=== PATIENT | female | born 1950 | race Caucasian/White ===

== ENCOUNTER 2020-12-10 15:33 | Outpatient (REF) | payer MEDICARE, OTHER, SELFPAY | END 2020-12-10 15:34 | disposition home or self-care (01) | LOC: NCHCN 15:33 | PROVIDERS: Visit Provider Nurse Practitioner Family | DX: N39.0 Urinary tract infection, site not specified (principal) | CPT/HCPCS: 87086 ==

== ENCOUNTER 2021-08-16 01:40 | Outpatient (CLI) | payer MEDICARE, OTHER, SELFPAY ==
--- OUTSIDE RECORDS SUMMARY | 2021-08-16 01:44 | XMS_ITS ---
:1950 Author Care Team Providers Name Role Phone BURTON MENDES MD Administrator Pesticide [phone] CLAY JOSUE MD Primary Care Provider [phone] Allergies Code Code Name Reaction Severity Status Onset System 5487 RxNorm Hydrochlorothiazide ? ? Active ? Iodinated Contrast ? ? Active ? Media 36166 RxNorm Lisinopril Cough ? Active ? 10799 RxNorm Pravastatin Other ? Active ? Sulfa (Sulfonamide Other ? Active ? Antibiotics) Notes: 06/20/21 verbal review No seafood allergy. Contrast allergy. Medications Name Status Start Date Stop Date ? ? acetaminophen 500 mg tablet Completed 06/10/202006/05 Take 2 tablets every 6 hours by oral route as needed. amoxicillin 500 mg tablet Completed ? 2019 amoxicillin 875 mg tablet Completed 09/23/20162015 1 (one) Tablet: bid - twice daily aspirin 81 mg tablet,delayed release Completed 06/10/2020 07/03/2020 Take 1 tablet every day by oral route. atenolol 100 mg tablet Completed 09/16/2012 4 1 Tablet: daily atorvastatin 20 mg tablet Completed ? 2019 atorvastatin 40 mg tablet Active ? Not av ailable TAKE 1 TABLET BY MOUTH EVERY DAY Augmentin 875 mg-125 mg tablet Completed ? 0 06/25/2021 Take 1 tablet every 12 hours by oral route for 5 days. azithromycin 500 mg tablet Completed ? 01/17 betamethasone dipropionate Completed ? 06/10 0.05 % topical ointment betamethasone valerate 0.1 % topical cream Completed 10/3011/29/2015 1 (one) Cream Cream: abid cephalexin 500 mg capsule Completed ? 2020 cholecalciferol (vitamin D3) 125 mcg (5,000 unit) capsule Active ? Not available Take 1 capsule by mouth once a week ciprofloxacin 250 mg tablet Completed 12/04/2016 11/2016 1 (one) Tablet: two times daily clopidogrel 75 mg tablet Active ? Not jaycee ilable TAKE 1 TABLET BY MOUTH ONCE DAILY cyanocobalamin (vit B-12) Completed ? 2019 1,000 mcg/mL injection solution cyclobenzaprine 10 mg tablet Completed ? Take 1 tablet 3 times a day by oral route for 7 days. doxycycline hyclate 100 mg tablet Completed ? 06/25/2021 Take 1 tablet twice a day by oral route for 5 days. duloxetine 30 mg capsule,delayed release Active ? Not available TAKE 1 CAPSULE BY MOUTH ONCE DAILY Eliquis 5 mg tablet Completed ? 07/09/2020 ferrous sulfate 325 mg (65 mg iron) tablet Active ? Not available TAKE 1 TABLET BY MOUTH THREE TIMES DAILY fluocinonide 0.05 % topical cream Active ? Not available APPLY A THIN LAYER TOPICALLY TO THE AFFECT AREAS TWICE DAILY fluoxetine 20 mg capsule Completed ? 020 FreeStyle Lancets 28 gauge Completed ? 06/10 once daily FreeStyle Lite Strips Active ? Not availa ble USE 1 STRIP TO CHECK GLUCOSE ONCE DAILY furosemide 40 mg tablet Active ? Not avai lable TAKE 2 TABLETS BY MOUTH DAILY hydrocortisone valerate 0.2 % topical cream Active ? Not available APPLY A THIN LAYER TO THE AFFECTED AREA(S) BY TOPICAL ROUTE 2 T IMES PER DAY isosorbide mononitrate ER 30 mg tablet,extended release 24 hr Ac tive ? Not available TAKE 1 TABLET BY MOUTH TWICE DAILY (JASON E ONE TABLET BY MOUTH IN THE MORNING AND ONE TABLET BY MOUTH AT NOON) levothyroxine 50 mcg tablet Active ? Not available Take 1 tablet by mouth once daily lidocaine 4 % topical patch Active ? Not available Apply 1 patch every day by topical route for 10 days. losartan 100 mg tablet Completed ? 9 losartan 25 mg tablet Active ? Not availa ble TAKE 1 TABLET BY MOUTH ONCE DAILY Lovenox 80 mg/0.8 mL subcutaneous syringe Completed ? 06/12/2020 Inject 0.8 mL every 12 hours by subcutaneous route for 5 days. magnesium gluconate 12.5 mg magnesium (250 mg) tablet Completed 08/18/2016 12/02/2016 1 (one) Tablet: once daily meclizine 25 mg tablet Active ? Not avail able Take 1 tablet 3 times a day by oral route as needed. metformin 500 mg tablet Active ? Not avai lable Take 1 tablet by mouth twice daily metoprolol succinate ER 100 mg tablet,extended release 24 hr Act onofre ? Not available Take 1 tablet by mouth once daily Total dose metoprolol succinate: 175 mg QD metoprolol succinate ER 25 mg tablet,extended release 24 hr Acti ve ? Not available Take 1 tablet twice a day by oral route. take 1 tablet once daily for a total dose of 175 mg QD metoprolol succinate ER 50 mg tablet,extended release 24 hr Acti ve ? Not available Take 1 tablet every day by oral route. Total dose metoprolol succinate: Sheba t is to take 175 mg QAM, 50 mg and 25 mg QHS Mucinex 600 mg tablet, extended release Active ? Not available Take 1 tablet every 12 hours by oral route for 7 days. nitroglycerin 0.4 mg sublingual tablet Active 0 Not available 1 tablet as needed by sublingual route as directed. omeprazole 40 mg capsule,delayed release Completed ? 11/09/2020 TAKE 1 CAPSULE BY MOUTH ONCE DAILY Optimal D3 1,250 mcg (50,000 unit) capsule Completed ? 05/02/2019 TAKE 1 CAPSULE BY MOUTH ONCE A WEEK pantoprazole 40 mg tablet,delayed release Active ? Not available TAKE 1 TABLET BY MOUTH ONCE DAILY (TO REPLACE OMEPRAZOLE) prednisone 20 mg tablet Completed ? 01/18/20 19 prednisone 50 mg tablet Completed ? 06/10/20 20 Prilosec OTC 20 mg tablet,delayed release Completed ? 01/25/2020 Take 1 tablet every day by oral route in the morning. ProAir HFA 90 mcg/actuation aerosol inhaler Active ? Not available Inhale 2 puffs every 4 hours by inhalation route for 14 days. triamcinolone acetonide 0.5 % Completed ? topical cream Tylenol 325 mg capsule Active ? Not avail able Take 2 capsules every 6-8 hours by oral route as needed for 7 d ays. Vitamin B12 100 mcg tablet Active 06/10/2020 Not a vailable Take 1 tablet every day by oral route. Vitamin D2 1,250 mcg (50,000 unit) capsule Active 06/10 Not available Take 1 capsule every week by oral route. Vitamin D3 Completed ? 09/20/2018 5000 units weekly vitamin d3 (mimi) 125mcg cap Completed ? TAKE 1 CAPSULE BY MOUTH ONCE A WEEK. Vitamin D3 125 mcg (5,000 unit) tablet Completed ? 07/19/2019 Take 1 tablet every week by oral route. warfarin 1 mg tablet Completed ? 07/05/2020 Take 5 tablets every day by oral route for 30 days. Xarelto 20 mg tablet Active ? Not availab le Zithromax Z-Rusty 250 mg tablet Completed ? 2 (two) Tablet: on day one then 1 tablet daily for four more da ys Zofran 4 mg tablet Completed 09/04/2016 08/24/2017 1 (one) Tablet Tablet: every 6 hours as needed Notes: 06/25/21- reviewed with ronald lunsford Problems Name Status Onset Date Source ? Type 2 Diabetes Mellitus without Active 09/20/2018 ? Complication History of Aortic Valve Replacement Active 05/02/2019 ? Atherosclerosis of Coronary Artery Active 05/02/2019 ? without Angina Pectoris Gastroesophageal Reflux Disease Active 11/09/2020 ? without Esophagitis Polyp of Colon Active ? History Hypothyroidism Active ? 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 History Mellitus Biotin Deficiency Disease Active ? Histor y Severe Obesity Active ? History Depressive Disorder Active ? History Obstructive Sleep Apnea Syndrome Active ? History Idiopathic Peripheral Neuropathy Active ? History Hypertensive Disorder Active ? History Lymphedema Praecox Active ? History Peripheral Venous Insufficiency Active ? History Psoriasis Active ? History Displacement of Intervertebral Disc Active ? History without Myelopathy Heart Murmur Active ? History Full Thickness Rotator Cuff Tear Unknown ? History Strain of Muscle of Upper Limb Unknown ? H istory Strain of Tendon of Upper Arm Unknown ? Hi story History of Thrombophlebitis Unknown ? Hist ory History of Urinary Stone Unknown ? History History of Bariatric Surgical Active ? Hi story Procedure Finding of Esophagus Unknown ? History Strain of Muscle of Left Upper Arm Unknown ? History Strain of Muscle of Left Shoulder Unknown ? History Carpal Tunnel Syndrome of Left Wrist Unknown ? History Procedures Date Name Performed by ? 07/15/2019 Endoscopy Information not avai lable Notes: [facility] [place] 01/12/2019 Cardiac Catheterization Information not available 01/12/2019 Transcatheter Aortic Valve Information n ot available Replacement 11/01/2018 Cardiac Catheterization Information not available 10/05/1996 Gastric Bypass Information not avai lable 10/05/1995 Cholecystectomy Information not avai lable 10/05/1958 Tonsillectomy Information not avai lable 03/18/2018 US, Echocardiogram [facility] ([facility]) [address] [place] [address] (Work Place) 06/25/2018 Cardiac Stress Test [facility] Radiology (Internal) [address] [place] [address] (Work Place) 07/27/2018 US, Echocardiogram [facility] Radiology (Internal) [address] [place] [address] (Work Place) 09/22/2018 US, Echocardiogram [facility] Radiology (Internal) [address] [place] [address] (Work Place) 06/03/2019 Holter Monitor [facility] Cardio pulmonary [address] [place] [address] (Work Place) 03/02/2020 Event Monitor [facility] Cardio pulmonary [address] [place] [address] (Work Place) 06/25/2021 XR, Chest, 2 View [facility] Radiology (Internal) [address] [place] [address] (Work Place) 06/25/2021 US, Echocardiogram, Transthoracic, [facility] Radiology (Internal) Complete [address] [place] [address] (Work Place) 06/26/2021 Wireless Manager [facility] Radiology (Internal) [address] [place] [address] (Work Place) Results Lab Results Date Name Specimen Result Interpretation Description Value Range Status Address ? 06/24/2021 CBC W/ BLD ? Wbc 5.6 10*3/uL 5.0-10.0 Final [place] Auto Diff 10*3/uL [facility] L ab (Internal) : [address] ? ? BLD Low Rbc 3.79 10*6/uL 4.10-5.30 Final N orth 10*6/uL [facility] L ab (Internal) : [address] ? ? BLD Low Hgb 11.9 g/dL 12.0-16.0 Final Nort [facility] g/dL [facility] (Internal[facility] : [address] ? ? BLD Low Hct 34.8 % 37.0-47.0 Final [facility] Hospital L ab (Internal) : [address] ? ? BLD ? Mcv 91.8 fL 80.0-96.0 Final [facility] Hospital L ab (Internal) : [address] ? ? BLD ? Mch 31.4 pg 26.0-32.0 Final [facility] Hospital L ab (Internal) : [address] ? ? BLD ? Mchc 34.2 g/dL 31.0-35.0 Final Nort h g/dL [facility] L ab (Internal) : [address] ? ? BLD High Rdw 14.6 % 11.5-14.5 Final [facility] L ab (Internal) : [address] ? ? BLD ? Plt 216 10*3/uL 130-450 Final Nort h 10*3/uL [facility] L ab (Internal) : [address] ? ? BLD ? Anc 4.21 10*3/uL ? Final Nort h [facility] L ab (Internal) : [address] ? ? BLD High Nlr 5.40 0.00-3.20 Final [facility] L ab (Internal) : [address] ? ? BLD High Neutro 75.3 % 40.0-75.0 Final [facility] L ab (Internal) : [address] ? ? BLD Low Lymph 14.0 % 20.0-50.0 Final [facility] L ab (Internal) : [address] ? ? BLD ? [place] 5.6 % 2.0-10.0 Final [facility] L ab (Internal) : [address] ? ? BLD ? Eos 4.3 % 1.0-6.0 % Final [facility] L ab (Internal) : [address] ? ? BLD ? Baso 0.4 % 0.0-1.0 % Final [facility] L ab (Internal) : [address] [place] ? ? BLD ? Ig 0.4 % 0.0-0.9 % Final [facility] Hospital L ab (Internal) : [address] t 06/24/2021 D-dimer, PLASMA ? Dimq 0.31 mg/L 0.00-0.50 Final [place] Quant, mg/L [facility] L ab (Internal) : [address] t 06/24/2021 Troponin S ? Trop 15.02 pg/mL 0.00-60.4 Fin al [place] I, Serum 0 pg/mL [facility] Lab (Internal) : [address] 06/24/2021 BNP S High Nt-bnp 1044 pg/mL 0-125 Final N orth (B-type pg/mL [facility] (Internal) : Peptide), [address] Pro[address] , [place]ley [address] N-terminal , Quant, Immunoassa y, Blood 06/24/2021 Procalcito ? Pct <0.15 NG/mL 0.00-0.50 F inal [place] zofia, Serum NG/mL [facility] L ab (Internal) : [address] 06/24/2021 CMP, Serum S High g/r 178 mg/dL 74-106 Final [facility] or Plasma mg/dL [facility] L ab (Internal) : [address] t ? ? S High Bun 27 mg/dL 7-18 Final [place] mg/dL [facility] L ab (Internal) : [address] ? ? S High Crea 1.3 mg/dL 0.6-1.0 Final [place] mg/dL [facility] L ab (Internal) : [address] t ? ? S ? Ca 8.9 mg/dL 8.5-10.1 Final [place] mg/dL [facility] L ab (Internal) : [address] t ? ? S ? Na 141 mmol/L 136-145 Final [facility] mmol/L [facility] L ab (Internal) : [address] t ? ? S ? K 4.1 mmol/L 3.5-5.1 Final [place] mmol/L [facility] L ab (Internal) : [address] t ? ? S ? Cl 104 mmol/l 98-107 Final [facility] mmol/l [facility] L ab (Internal) : [address] t ? ? S ? Tco2 25.6 mmol/L 21.0-32.0 Final No rth mmol/L [facility] L ab (Internal) : [address] t ? ? S ? Tp 6.9 g/dL 6.4-8.2 Final [facility] g/dL [facility] L ab (Internal) : [address] ? ? S ? Alb 3.7 g/dL 3.4-5.0 Final [facility] g/dL [facility] L ab (Internal) : [address] ? ? S ? Tbil 0.50 mg/dL 0.20-1.00 Final Nor th mg/dL [facility] L ab (Internal) : [address] t ? ? S ? Alp 64 U/L 46-116 Final [facility] U/L [facility] L ab (Internal) : [address] ? ? S ? Alt 20 U/L 14-59 U/L Final [facility] (Sgpt) [facility] L ab (Internal) : [address] ? ? S Low Ast 14 U/L 15-37 U/L Final [facility] (Sgot) [facility] L ab (Internal) : [address] 06/24/2021 TSH, Serum S ? Tsh 3.35 uIU/mL 0.36-3.74 F inal North or Plasma uIU/mL [facility] L ab (Internal) : [address] 06/13/2021 SARS CoV 2 SWAB ? Covid-19 negative negative Fi nal [place] RNA RT-PCR Country (COVID-19) [facility] Lab , QL, Result (Internal) : machine inspector-PCR, [address] y Specimen ? ? SWAB ? Performi ginny 6800 ? Final [facility] L ab (Internal) : [address] 06/04/2021 HbA1C BLD High Ha1C 6.8 % 4.0-6.0 % Final Nor th (Hemoglobi Countr y n a1C), Hospital Lab Blood (Internal) : [address] 06/04/2021 CMP, Serum S High g/r 181 mg/dL 74-106 Final North or Plasma mg/dL [facility] (Internal) : [address] ? ? S High Bun 29 mg/dL 7-17 Final [facility] mg/dL [facility] (Internal) : [address] ? ? S ? Crea 0.80 mg/dL 0.52-1.04 Final Nor th mg/dL [facility] (Internal) : [address] ? ? S ? Ca 9.2 mg/dL 8.4-10.2 Final [facility] mg/dL [facility] (Internal) : [address] ? ? S ? Na 138 mmol/L 137-145 Final [facility] mmol/L [facility] (Internal) : [address] ? ? S ? K 4.4 mmol/L 3.5-5.1 Final [facility] mmol/L [facility] (Internal) : [address] ? ? S ? Cl 100 mmol/L 98-107 Final [facility] mmol/L [facility] (Internal) : [address] ? ? S ? Tco2 30.0 mmol/L 22.0-30.0 Final No rth mmol/L [facility] (Internal) : [address] ? ? S ? Tp 6.6 g/dL 6.3-8.2 Final [facility] g/dL [facility] (Internal) : [address] ? ? S ? Alb 3.9 g/dL 3.5-5.0 Final [facility] g/dL [facility] (Internal) : [address] ? ? S ? Tbil 1.0 mg/dL 0.2-1.3 Final [facility] mg/dL [facility] (Internal) : [address] ? ? S ? Alp 55 U/L 38-126 Final [facility] U/L [facility] (Internal) : [address] ? ? S ? Alt 13 U/L 9-52 U/L Final [facility] (Sgpt) [facility] : [address] [facility] ? ? S ? Ast 23 U/L 14-36 U/L Final [facility] (Sgot) [facility] (Internal) : [address] [facility] 06/04/2021 TSH, Serum S ? Tsh 2.83 u[IU]/mL 0.47-4.68 Final [facility] or Plasma u[IU]/mL [facility] ry Hospital L ab (Internal) : [address] [facility] 06/04/2021 Vitamin D, S ? 25-Shirley 6.1 NG/mL ? Fin [place] [facility] 25-Hydroxy xy D2 Countr y , Total, Hospital Lab [facility] [address] [facility] ? ? S ? 25-Shirley 26 NG/mL ? Final [facility] xy D3 [facility] (Internal) : [address] ? ? S ? 25-Shirley 32 NG/mL ? Final [facility] xy D [facility] Total Hospital L ab (Internal) : [address] [facility] 03/16/2021 EKG Done ? No ? ? ? [facility] recorded. ([employer] Installer al): [address] [facility] 03/16/2021 Troponin S ? Trop <0.06 NG/mL 0.00-0.06 Reggie mead [facility] I, Serum NG/mL [facility]osp[facility] Lab (Internal) : [address] [facility] 01/04/2021 HbA1C BLD High Ha1C 7.0 % 4.0-6.0 % Final [facility] (Hemoglobi Countr y n a1C), Hospital Lab Blood (Internal) : [address] [facility] 01/04/2021 TSH, Serum S ? Tsh 2.03 u[IU]/mL 0.47-4.68 Final [place] or Plasma u[IU]/mL Count ry Hospital L ab (Internal) : [address] [facility] 07/03/2020 EKG Done ? No ? ? ? Nort [facility] recorded. ([employer] Installer al): [address] [facility] 06/29/2020 Lipid S ? Chol 117 mg/dL 50-200 Final Nor th Panel, mg/dL [facility] Serum Hospital L ab (Internal) : [address] ? ? S High Trig 172 mg/dL 10-150 Final North mg/dL [facility] L ab (Internal) : [address] ? ? S Low Hdl 37 mg/dL 40-60 Final North mg/dL [facility] L ab (Internal) : [address] ? ? S ? Ldl 46 mg/dL 0-130 Final North mg/dL [facility] L ab (Internal) : [address] 06/29/2020 Hepatic S ? Tbil 0.8 mg/dL 0.2-1.3 Final N orth Function mg/dL [facility] Panel, Hospital L ab Serum (Internal) : [address] ? ? S ? Dbil 0.1 mg/dL 0.0-0.3 Final North mg/dL [facility] L ab (Internal) : [address] t ? ? S ? Alp 56 U/L 38-126 Final [place] U/L [facility] L ab (Internal) : [address] ? ? S ? Alt 17 U/L 9-52 U/L Final [facility] (Sgpt) [facility] L ab (Internal) : [address] ? ? S ? Ast 21 U/L 14-36 U/L Final [facility] (Sgot) [facility] L ab (Internal) : [address] ? ? S ? Ggt 18 U/L 12-43 U/L Final [facility] L ab (Internal) : [address] ? ? S ? Tp 6.3 g/dL 6.3-8.2 Final North g/dL [facility] L ab (Internal) : [address] ? ? S ? Alb 3.7 g/dL 3.5-5.0 Final [place] g/dL [facility] L ab (Internal) : [address] 06/10/2020 CBC W/ BLD ? Wbc 5.2 10*3/uL 5.0-10.0 Final [place] Auto Diff 10*3/uL [facility] (Internal) : [address], [place] ? ? BLD Low Rbc 3.91 10*6/uL 4.10-5.30 Final N orth 10*6/uL [facility] L ab (Internal) : [address] ? ? BLD ? Hgb 12.1 g/dL 12.0-16.0 Final Nort h g/dL [facility] L ab (Internal) : [address] ? ? BLD Low Hct 35.5 % 37.0-47.0 Final [facility] Hospital L ab (Internal) : [address] [place] ? ? BLD ? Mcv 90.8 fL 80.0-96.0 Final [facility] Hospital L ab (Internal) : [address] ? ? BLD ? Mch 30.9 pg 26.0-32.0 Final [facility] Hospital L ab (Internal) : [address] ? ? BLD ? Mchc 34.1 g/dL 31.0-35.0 Final Nort h g/dL [facility] L ab (Internal) : [address] [place] ? ? BLD ? Rdw 13.4 % 11.5-14.5 Final [facility] L ab (Internal) : [address] ? ? BLD ? Plt 190 10*3/uL 130-450 Final Nort h 10*3/uL [facility] L ab (Internal) : [address] ? ? BLD ? Anc 3.61 10*3/uL ? Final Nort h [facility] L ab (Internal) : [address] ? ? BLD High Nlr 3.80 0.00-3.20 Final [facility] L ab (Internal) : [address] ? ? BLD ? Neutro 69.9 % 40.0-75.0 Final [facility] L ab (Internal) : [address] ? ? BLD Low Lymph 18.4 % 20.0-50.0 Final [facility] L ab (Internal) : [address] ? ? BLD ? [place] 6.4 % 2.0-10.0 Final [facility] L ab (Internal) : [address] ? ? BLD ? Eos 4.3 % 1.0-6.0 % Final [facility] Hospital L ab (Internal) : [address] ? ? BLD ? Baso 0.6 % 0.0-1.0 % Final [facility] Hospital L ab (Internal) : [address] ? ? BLD ? Ig 0.4 % 0.0-0.9 % Final [facility] Hospital L ab (Internal) : [address] 06/10/2020 BMP, Serum S High g/r 177 mg/dL 74-106 Final [facility] or Plasma mg/dL [facility] (Internal) : [address] ? ? S High Bun 29 mg/dL 7-17 Final North mg/dL [facility] L ab (Internal) : [address] t ? ? S ? Crea 0.70 mg/dL 0.52-1.04 Final Nor th mg/dL [facility] L ab (Internal) : [address] t ? ? S ? Ca 9.3 mg/dL 8.4-10.2 Final [facility] mg/dL [facility] (Internal) : [address] t ? ? S ? Na 137 mmol/L 137-145 Final North mmol/L [facility] L ab (Internal) : [address] t ? ? S ? K 3.9 mmol/L 3.5-5.1 Final North mmol/L [facility] L ab (Internal) : [address] t ? ? S ? Cl 99 mmol/L 98-107 Final [facility] mmol/L [facility] L ab (Internal) : [address] t ? ? S ? Tco2 29.0 mmol/L 22.0-30.0 Final No rth mmol/L [facility] (Internal) : [address] 06/10/2020 Troponin S High Trop 0.10 NG/mL 0.00-0.06 Sarah l [place] I, Serum NG/mL [facility] or [facility]osp[facility] Lab (Internal) : [address] 06/09/2020 CBC W/ BLD Low Wbc 3.7 10*3/uL 5.0-10.0 Final [place] Auto Diff 10*3/uL [facility] L ab (Internal) : [address] ? ? BLD Low Rbc 3.43 10*6/uL 4.10-5.30 Final N orth 10*6/uL [facility] L ab (Internal) : [address] ? ? BLD Low Hgb 10.9 g/dL 12.0-16.0 Final Nort h g/dL [facility] L ab (Internal) : [address] ? ? BLD Low Hct 31.9 % 37.0-47.0 Final [facility] Hospital L ab (Internal) : [address] ? ? BLD ? Mcv 93.0 fL 80.0-96.0 Final [facility] Hospital L ab (Internal) : [address] ? ? BLD ? Mch 31.8 pg 26.0-32.0 Final [facility] Hospital L ab (Internal) : [address] ? ? BLD ? Mchc 34.2 g/dL 31.0-35.0 Final Nort h g/dL [facility] L ab (Internal) : [address] ? ? BLD ? Rdw 13.5 % 11.5-14.5 Final [facility] L ab (Internal) : [address] ? ? BLD Low Plt 127 10*3/uL 130-450 Final Nort h 10*3/uL [facility] L ab (Internal) : [address] ? ? BLD ? Anc 2.20 10*3/uL ? Final Nort h [facility] L ab (Internal) : [address] ? ? BLD ? Nlr 2.27 0.00-3.20 Final [facility] Hospital L ab (Internal) : [address] ? ? BLD ? Neutro 60.1 % 40.0-75.0 Final [facility] L ab (Internal) : [address] ? ? BLD ? Lymph 26.5 % 20.0-50.0 Final [facility] L ab (Internal) : [address] ? ? BLD ? [place] 8.2 % 2.0-10.0 Final North % [facility] L ab (Internal) : [address] ? ? BLD ? Eos 4.4 % 1.0-6.0 % Final [facility] Hospital L ab (Internal) : [address] ? ? BLD ? Baso 0.5 % 0.0-1.0 % Final [facility] Hospital L ab (Internal) : [address] ? ? BLD ? Ig 0.3 % 0.0-0.9 % Final [facility] L ab (Internal) : [address] 06/09/2020 BMP, Serum S High g/r 156 mg/dL 74-106 Final [facility] or Plasma mg/dL [facility] ([facility] : [address] t ? ? S High Bun 34 mg/dL 7-17 Final North mg/dL [facility] L ab (Internal) : [address] t ? ? S ? Crea 0.90 mg/dL 0.52-1.04 Final [facility] mg/dL [facility] L [facility] (Internal) : [address] t ? ? S ? Ca 9.4 mg/dL 8.4-10.2 Final [facility] mg/dL [facility] L [facility] (Internal) : [address] t ? ? S ? Na 137 mmol/L 137-145 Final North mmol/L [facility] L [facility] (Internal) : [address] t ? ? S ? K 4.0 mmol/L 3.5-5.1 Final North mmol/L [facility] L ab (Internal) : [address] t ? ? S ? Cl 101 mmol/L 98-107 Final North mmol/L [facility] L ab (Internal) : [address] t ? ? S ? Tco2 30.0 mmol/L 22.0-30.0 Final No rth mmol/L [facility] L [facility] (Internal) : [address] 06/09/2020 Troponin S High Trop 0.26 NG/mL 0.00-0.06 Sarah l [place] I, Serum NG/mL [facility] Lab (Internal) : [address] 06/08/2020 CBC W/ BLD ? Wbc 5.9 10*3/uL 5.0-10.0 Final [place] Auto Diff 10*3/uL [facility] L ab (Internal) : [address] t ? ? BLD Low Rbc 3.95 10*6/uL 4.10-5.30 Final N orth 10*6/uL [facility] L ab (Internal) : [address] t ? ? BLD ? Hgb 12.3 g/dL 12.0-16.0 Final Nort h g/dL [facility] L ab (Internal) : [address] t ? ? BLD Low Hct 36.2 % 37.0-47.0 Final [facility] L ab (Internal) : [address] t ? ? BLD ? Mcv 91.6 fL 80.0-96.0 Final [facility] Hospital L ab (Internal) : [address] t ? ? BLD ? Mch 31.1 pg 26.0-32.0 Final [facility] L ab (Internal) : [address] t ? ? BLD ? Mchc 34.0 g/dL 31.0-35.0 Final Nort h g/dL [facility] L ab (Internal) : [address] t ? ? BLD ? Rdw 13.5 % 11.5-14.5 Final [facility] L ab (Internal) : [address] t ? ? BLD ? Plt 209 10*3/uL 130-450 Final Nort h 10*3/uL [facility] L ab (Internal) : [address] t ? ? BLD ? Anc 4.00 10*3/uL ? Final Nort h [facility] L ab (Internal) : [address] t ? ? BLD ? Nlr 3.01 0.00-3.20 Final [facility] L ab (Internal) : [address] t ? ? BLD ? Neutro 67.7 % 40.0-75.0 Final [facility] L ab (Internal) : [address] t ? ? BLD ? Lymph 22.5 % 20.0-50.0 Final [facility] ([facility] : [address] t ? ? BLD ? [place] 5.7 % 2.0-10.0 Final [facility] (Internal) : [address] t ? ? BLD ? Eos 3.5 % 1.0-6.0 % Final [facility] L ab (Internal) : [address] t ? ? BLD ? Baso 0.3 % 0.0-1.0 % Final [facility] L ab (Internal) : [address] t ? ? BLD ? Ig 0.3 % 0.0-0.9 % Final [facility] L ab (Internal) : [address] 06/08/2020 CMP, Serum S High g/r 132 mg/dL 74-106 Final [facility] or Plasma mg/dL [facility] (Internal) : [address] t ? ? S High Bun 32 mg/dL 7-17 Final [facility] mg/dL [facility] (Internal) : [address] t ? ? S ? Crea 1.00 mg/dL 0.52-1.04 Final [facility] mg/dL [facility] (Internal) : [address] t ? ? S ? Ca 9.8 mg/dL 8.4-10.2 Final [facility] mg/dL [facility] (Internal) : [address] t ? ? S ? Na 138 mmol/L 137-145 Final North mmol/L [facility] L ab (Internal) : [address] t ? ? S ? K 3.9 mmol/L 3.5-5.1 Final [facility] mmol/L [facility] (Internal) : [address] t ? ? S ? Cl 102 mmol/L 98-107 Final North mmol/L [facility] L ab (Internal) : [address] t ? ? S ? Tco2 26.0 mmol/L 22.0-30.0 Final No rth mmol/L [facility] (Internal) : [address] t ? ? S ? Tp 6.8 g/dL 6.3-8.2 Final [place] g/dL [facility] L ab (Internal) : [address] t ? ? S ? Alb 3.9 g/dL 3.5-5.0 Final [place] g/dL [facility] L ab (Internal) : [address] t ? ? S ? Tbil 0.8 mg/dL 0.2-1.3 Final [place] mg/dL [facility] L ab (Internal) : [address] t ? ? S ? Alp 55 U/L 38-126 Final [facility] U/L [facility] L ab (Internal) : [address] t ? ? S ? Alt 16 U/L 9-52 U/L Final [place] (Sgpt) [facility] L ab (Internal) : [address] t ? ? S ? Ast 26 U/L 14-36 U/L Final [facility] (Sgot) [facility] L ab (Internal) : [address] [facility] t 06/08/2020 Troponin S High Trop 0.23 NG/mL 0.00-0.06 Sarah l [place] I, Serum NG/mL [facility] or Plasma Hospita l Lab (Internal) : [address] [facility] t 06/08/2020 BNP S High Nt-probn 3940 pg/mL 0-125 Final [place] (B-type p pg/mL [facility] (Internal) : Peptide), [address] Prohormone , Marley wport N-terminal , Quant, Immunoassa y, Blood 06/08/2020 TSH, Serum S ? Tsh 1.80 u[IU]/mL 0.47-4.68 Final [place] or Plasma u[IU]/mL [facility] (Internal) : [address] [facility] Troponin S CRITICA Trop 0.42 NG/mL 0.00-0.06 Fin al North I, Serum L HIGH NG/mL [facility] Lab (Internal) : [address] t 04/25/2020 EKG Done ? No ? ? ? Nort h by Lab observati [facility] on Hospital L ab recorded. ([employer] al): [address] t 03/05/2020 EKG Done ? No ? ? ? [facility] ([employer] al): [address] 01/27/2020 CBC W/ BLD Low Wbc 4.6 10*3/uL 5.0-10.0 Final [place] Auto Diff 10*3/uL [facility] L ab (Internal) : [address] t ? ? BLD ? Rbc 4.56 10*6/uL 4.10-5.30 Final N orth 10*6/uL [facility] L ab (Internal) : [address] t ? ? BLD ? Hgb 13.4 g/dL 12.0-16.0 Final Nort h g/dL [facility] L ab (Internal) : [address] t ? ? BLD ? Hct 39.8 % 37.0-47.0 Final [facility] Hospital L ab (Internal) : [address] t ? ? BLD ? Mcv 87.3 fL 80.0-96.0 Final [facility] Hospital L ab (Internal) : [address] t ? ? BLD ? Mch 29.4 pg 26.0-32.0 Final [facility] Hospital L ab (Internal) : [address] t ? ? BLD ? Mchc 33.7 g/dL 31.0-35.0 Final Nort h g/dL [facility] L ab (Internal) : [address] ? ? BLD High Rdw 15.6 % 11.5-14.5 Final [facility] Hospital L ab (Internal) : [address] t ? ? BLD ? Plt 186 10*3/uL 130-450 Final Nort h 10*3/uL [facility] L ab (Internal) : [address] t ? ? BLD ? Anc 3.25 10*3/uL ? Final Nort h [facility] L ab (Internal) : [address] t ? ? BLD High Nlr 3.57 0.00-3.20 Final [facility] L ab (Internal) : [address] t ? ? BLD ? Neutro 70.2 % 40.0-75.0 Final [facility] (Internal) : [address] ? ? BLD Low Lymph 19.7 % 20.0-50.0 Final [facility] (Internal) : [address] ? ? BLD ? [place] 6.5 % 2.0-10.0 Final [facility] (Internal) : [address] t ? ? BLD ? Eos 3.0 % 1.0-6.0 % Final [facility] L ab (Internal) : [address] t ? ? BLD ? Baso 0.4 % 0.0-1.0 % Final [facility] L ab (Internal) : [address] t ? ? BLD ? Ig 0.2 % 0.0-0.9 % Final [facility] L ab (Internal) : [address] t 01/27/2020 CMP, Serum S High g/r 171 mg/dL 74-106 Final [place] or Plasma mg/dL [facility] (Internal) : [address] t ? ? S High Bun 18 mg/dL 7-17 Final [facility] mg/dL [facility] (Internal) : [address] t ? ? S ? Crea 0.60 mg/dL 0.52-1.04 Final [facility] th mg/dL [facility] (Internal) : [address] t ? ? S ? Ca 9.2 mg/dL 8.4-10.2 Final [facility] mg/dL [facility] (Internal) : [address] t ? ? S ? Na 140 mmol/L 137-145 Final [facility] mmol/L [facility] (Internal) : [address] t ? ? S ? K 4.2 mmol/L 3.5-5.1 Final [facility] mmol/L [facility] (Internal) : [address] t ? ? S ? Cl 101 mmol/L 98-107 Final [facility] mmol/L [facility] (Internal) : [address] t ? ? S ? Tco2 27.0 mmol/L 22.0-30.0 Final No rth mmol/L [facility] L ab (Internal) : [address] t ? ? S ? Tp 6.9 g/dL 6.3-8.2 Final North g/dL [facility] L ab (Internal) : [address] t ? ? S ? Alb 4.1 g/dL 3.5-5.0 Final [place] g/dL [facility] L ab (Internal) : [address] t ? ? S ? Tbil 0.9 mg/dL 0.2-1.3 Final [place] mg/dL [facility] L ab (Internal) : [address] t ? ? S ? Alp 58 U/L 38-126 Final [facility] U/L [facility] L ab (Internal) : [address] t ? ? S ? Alt 15 U/L 9-52 U/L Final [facility] (Sgpt) [facility] L ab (Internal) : [address] t ? ? S ? Ast 25 U/L 14-36 U/L Final [place] (Sgot) [facility] L ab (Internal) : [address] [facility] 01/27/2020 Microalbum UR High Malb 76.3 mg/L 5.0-16.7 Sarah l [place] in, Urine mg/L [facility] L ab (Internal) : [address] t ? ? UR High U-crea, 264 mg/dL 30-125 Final North Spot mg/dL [facility] L ab (Internal) : [address] t ? ? UR ? Microalb 28.9 ug/mg 0.0-30.0 Final N orth /crea ug/mg [facility] L ab (Internal) : [address] [facility] 01/27/2020 TSH, Serum S ? Tsh 1.92 u[IU]/mL 0.47-4.68 Final [place] or Plasma u[IU]/mL [facility] L ab (Internal) : [address] [facility] 01/27/2020 RBC BLD ? Aniso small ? Final [facility] Morphology Countr y , Blood Hospital Lab (Internal) : [address] [facility] 01/27/2020 HbA1C BLD High Ha1C 6.9 % 4.0-6.0 % Final Nor th (Hemoglobi Countr y n a1C), Hospital Lab Blood (Internal) : [address] 10/01/2019 CBC W/ BLD Low Wbc 4.6 10*3/uL 5.0-10.0 Final [place] Auto Diff 10*3/uL [facility] L [facility] (Internal) : [address] ? ? BLD - Rbc 4.68 10*6/uL 4.10-5.30 Final N orth 10*6/uL [facility] L ab (Internal) : [address] ? ? BLD - Hgb 12.2 g/dL 12.0-16.0 Final Nort h g/dL [facility] L ab (Internal) : [address] ? ? BLD - Hct 38.7 % 37.0-47.0 Final [facility] L ab (Internal) : [address] ? ? BLD - Mcv 82.7 fL 80.0-96.0 Final [facility] L ab (Internal) : [address] ? ? BLD - Mch 26.1 pg 26.0-32.0 Final [facility] L ab (Internal) : [address] ? ? BLD - Mchc 31.5 g/dL 31.0-35.0 Final Nort h g/dL [facility] L ab (Internal) : [address] ? ? BLD High Rdw 14.9 % 11.5-14.5 Final [facility] Hospital L ab (Internal) : [address] ? ? BLD - Plt 210 10*3/uL 130-450 Final Nort h 10*3/uL [facility] L ab (Internal) : [address] ? ? BLD - Anc 3.24 10*3/uL ? Final Nort h [facility] L ab (Internal) : [address] ? ? BLD - Neutro 70.6 % 40.0-75.0 Final [facility] L ab (Internal) : [address] ? ? BLD Low Lymph 18.5 % 20.0-50.0 Final [facility] (Internal) : [address] ? ? BLD - [place] 6.1 % 2.0-10.0 Final [facility] (Internal) : [address] ? ? BLD - Eos 4.4 % 1.0-6.0 % Final [facility] L ab (Internal) : [address] ? ? BLD - Baso 0.4 % 0.0-1.0 % Final [facility] L ab (Internal) : [address] ? ? BLD - Ig 0.0 % 0.0-0.9 % Final [facility] L ab (Internal) : [address] t 10/01/2019 HbA1C BLD High Ha1C 7.7 % 4.0-6.0 % Final [facility] th (Hemoglobi Countr y n a1C), Hospital Lab Blood (Internal) : [address] 10/01/2019 Lipid S - Chol 154 mg/dL 50-200 Final [facility] th Panel, mg/dL [facility] L ab (Internal) : [address] ? ? S High Trig 173 mg/dL 10-150 Final [facility] mg/dL [facility] (Internal) : [address] ? ? S Low Hdl 33 mg/dL 40-60 Final [facility] mg/dL [facility] (Internal) : [address] ? ? S - Ldl 86 mg/dL 0-130 Final North mg/dL [facility] L ab (Internal) : [address] 10/01/2019 CMP, Serum S High g/r 185 mg/dL 74-106 Final [place] or Plasma mg/dL [facility] (Internal) : [address] ? ? S High Bun 19 mg/dL 7-17 Final North mg/dL [facility] L ab (Internal) : [address] ? ? S - Crea 0.70 mg/dL 0.52-1.04 Final [facility] mg/dL [facility] L [facility] (Internal) : [address] t ? ? S - Ca 9.5 mg/dL 8.4-10.2 Final [facility] mg/dL [facility] (Internal) : [address] t ? ? S - Na 141 mmol/L 137-145 Final [facility] mmol/L [facility] (Internal) : [address] t ? ? S - K 4.0 mmol/L 3.5-5.1 Final [facility] mmol/L [facility] (Internal) : [address] t ? ? S - Cl 99 mmol/L 98-107 Final [facility] mmol/L [facility] (Internal) : [address] t ? ? S - Tco2 29.0 mmol/L 22.0-30.0 Final No rth mmol/L [facility] L [facility] (Internal) : [address] t ? ? S - Tp 7.3 g/dL 6.3-8.2 Final [facility] g/dL [facility] (Internal) : [address] t ? ? S - Alb 4.0 g/dL 3.5-5.0 Final [facility] g/dL [facility] (Internal) : [address] t ? ? S - Tbil 0.8 mg/dL 0.2-1.3 Final [facility] mg/dL [facility] L [facility] (Internal) : [address] t ? ? S - Alp 83 U/L 38-126 Final [facility] U/L [facility] (Internal) : [address] ? ? S - Alt 13 U/L 9-52 U/L Final [facility] (Sgpt) [facility] L [facility] (Internal) : [address] t ? ? S - Ast 26 U/L 14-36 U/L Final [facility] (Sgot) [facility] L [facility] (Internal) : [address] 10/01/2019 Microalbum UR - Malb <7.0 mg/L 5.0-16.7 Sarah l [place] in, Urine mg/L [facility] L [facility] (Internal) : [address] ? ? UR - U-crea, 43 mg/dL 30-125 Final [place] Spot mg/dL [facility] L [facility] (Internal) : [address] 10/01/2019 Iron S - Iron 68 ug/dL 37-170 Final Nort h Saturation ug/dL Countr y , Serum Hospital Lab (Internal) : [address] ? ? S - Tibc 421 ug/dL 265-497 Final [place] ug/dL [facility] L ab (Internal) : [address] ? ? S Low Sat 16 % 20-55 % Final [facility] L ab (Internal) : [address] 10/01/2019 Ferritin, S Low Ferr 9 NG/mL 11-264 Final No rth Serum or NG/mL [facility] L ab (Internal) : [address] 10/01/2019 Vitamin S High Vit B12 >1000.0 pg/mL 239.0-931 Final [place] B12, Serum .0 pg/mL [facility] L ab (Internal) : [address] 10/01/2019 TSH, Serum S - Tsh 1.55 u[IU]/mL 0.47-4.68 Final [place] or Plasma u[IU]/mL [facility] L ab (Internal) : [address] 09/20/2018 CBC W/ BLD Low Wbc 4.1 10*3/uL 5.0-10.0 Final [place] Auto Diff 10*3/uL [facility] L ab (Internal) : [address] ? ? BLD Low Rbc 3.77 10*6/uL 4.10-5.30 Final N orth 10*6/uL [facility] L ab (Internal) : [address] ? ? BLD Low Hgb 10.9 g/dL 12.0-16.0 Final Nort h g/dL [facility] L ab (Internal) : [address] ? ? BLD Low Hct 33.2 % 37.0-47.0 Final [facility] L ab (Internal) : [address] ? ? BLD - Mcv 88.1 fL 80.0-96.0 Final [facility] L ab (Internal) : [address] ? ? BLD - Mch 28.9 pg 26.0-32.0 Final [facility] L ab (Internal) : [address] ? ? BLD - Mchc 32.8 g/dL 31.0-35.[address] [facility] h g/dL [facility] L ab (Internal) : [address] ? ? BLD - Rdw 14.5 % 11.5-14.5 Final [facility] L ab (Internal) : [address] ? ? BLD - Plt 170 10*3/uL 130-450 Final Nort h 10*3/uL [facility] L ab (Internal) : [address] ? ? BLD - Anc 2.42 10*3/uL ? Final [facility] L ab (Internal) : [address] ? ? BLD - Neutro 58.8 % 40.0-75.0 Final [facility] L ab (Internal) : [address] t ? ? BLD - Lymph 25.7 % 20.0-50.0 Final [facility] L ab (Internal) : [address] ? ? BLD - [place] 7.8 % 2.0-10.0 Final [facility] L ab (Internal) : [address] ? ? BLD High Eos 7.0 % 1.0-6.0 % Final [facility] L ab (Internal) : [address] t ? ? BLD - Baso 0.5 % 0.0-1.0 % Final [facility] L ab (Internal) : [address] ? ? BLD - Ig 0.2 % 0.0-0.9 % Final [facility] L ab (Internal) : [address] t 09/20/2018 HbA1C BLD High Ha1C 6.7 % 4.0-6.0 % Final [facility] th (Hemoglobi Countr y n a1C), Hospital Lab Blood (Internal) : [address] t 09/20/2018 CMP, Serum S High g/r 117 mg/dL 74-106 Final [place] or Plasma mg/dL [facility] L ab (Internal) : [address] t ? ? S High Bun 22 mg/dL 7-17 Final [facility] mg/dL [facility] (Internal) : [address] ? ? S High Crea 1.10 mg/dL 0.52-1.04 Final [facility] th mg/dL [facility] L [facility] (Internal) : [address] t ? ? S - Ca 9.4 mg/dL 8.4-10.2 Final [facility] mg/dL [facility] L [facility] (Internal) : [address] t ? ? S - Na 140 mmol/L 137-145 Final [facility] mmol/L [facility] (Internal) : [address] t ? ? S - K 4.2 mmol/L 3.5-5.1 Final [facility] mmol/L [facility] L [facility] (Internal) : [address] t ? ? S - Cl 101 mmol/L 98-107 Final [facility] mmol/L [facility] L [facility] (Internal) : [address] t ? ? S - Tco2 29.0 mmol/L 22.0-30.0 Final No rth mmol/L [facility] L ab (Internal) : [address] t ? ? S - Tp 6.6 g/dL 6.3-8.2 Final [facility] g/dL [facility] L [facility] (Internal) : [address] t ? ? S - Alb 3.7 g/dL 3.5-5.0 Final [facility] g/dL [facility] L [facility] (Internal) : [address] t ? ? S - Tbil 0.4 mg/dL 0.2-1.3 Final [facility] mg/dL [facility] L [facility] (Internal) : [address] t ? ? S - Alp 49 U/L 38-126 Final [facility] U/L [facility] L [facility] (Internal) : [address] t ? ? S - Alt 13 U/L 9-52 U/L Final North (Sgpt) [facility] L ab (Internal) : [address] t ? ? S - Ast 24 U/L 14-36 U/L Final [facility] (Sgot) [facility] L ab (Internal) : [address] 09/20/2018 Thyroid S - Tsh 2.08 u[IU]/mL 0.47-4.68 Fi [facility] [place], u[IU]/mL Countr y Serum Hospital L ab (Internal) : [address] 01/25/2018 Venipunctu BLD ? Venpn* ? ? Final N orth re [facility] L ab (Internal) : [address] 01/25/2018 Vitamin S ? Vit B12 823.0 pg/mL 239.0-931 Fi [facility] B12, Serum .0 pg/mL Coun try Hospital L ab (Internal) : [address] 01/25/2018 CBC W/ BLD Low Wbc 4.6 10*3/uL 5.0-10.0 Final [place] Auto Diff 10*3/uL [facility] L ab (Internal) : [address] t ? ? BLD Low Rbc 3.89 10*6/uL 4.10-5.30 Final N orth 10*6/uL [facility] L ab (Internal) : [address] t ? ? BLD Low Hgb 10.7 g/dL 12.0-16.0 Final Nort h g/dL [facility] L ab (Internal) : [address] t ? ? BLD Low Hct 33.4 % 37.0-47.0 Final [facility] L ab (Internal) : [address] ? ? BLD ? Mcv 85.9 fL 80.0-96.0 Final [facility] Hospital L ab (Internal) : [address] t ? ? BLD ? Mch 27.5 pg 26.0-32.0 Final [facility] L ab (Internal) : [address] t ? ? BLD ? Mchc 32.0 g/dL 31.0-35.0 Final Nort h g/dL [facility] L ab (Internal) : [address] t ? ? BLD High Rdw 15.0 % 11.5-14.5 Final [facility] L ab (Internal) : [address] ? ? BLD ? Plt 180 10*3/uL 130-450 Final Nort h 10*3/uL [facility] L ab (Internal) : [address] t ? ? BLD ? Anc 2.96 10*3/uL ? Final Nort h [facility] L ab (Internal) : [address] t ? ? BLD ? Neutro 63.9 % 40.0-75.0 Final [facility] L ab (Internal) : [address] t ? ? BLD ? Lymph 22.4 % 20.0-50.0 Final [facility] L ab (Internal) : [address] ? ? BLD ? [place] 7.1 % 2.0-10.0 Final [facility] L ab (Internal) : [address] ? ? BLD ? Eos 6.0 % 1.0-6.0 % Final [facility] L ab (Internal) : [address] t ? ? BLD ? Baso 0.4 % 0.0-1.0 % Final [facility] L ab (Internal) : [address] t ? ? BLD ? Ig 0.2 % 0.0-0.9 % Final [facility] L ab (Internal) : [address] 01/25/2018 Lipid S ? Chol 185 mg/dL 50-200 Final Nor th Panel, mg/dL [facility] L ab (Internal) : [address] ? ? S High Trig 207 mg/dL 10-150 Final North mg/dL [facility] L ab (Internal) : [address] t ? ? S Low Hdl 29 mg/dL 40-60 Final North mg/dL [facility] L ab (Internal) : [address] t ? ? S ? Ldl 115 mg/dL 0-130 Final [place] mg/dL [facility] L ab (Internal) : [address] t 01/25/2018 TSH, Serum S ? Tsh 1.07 u[IU]/mL 0.47-4.68 Final North or Plasma u[IU]/mL [facility] L ab (Internal) : [address] t 01/25/2018 CMP, Serum S High g/r 144 mg/dL 74-106 Final [facility] or Plasma mg/dL [facility] L [facility] (Internal) : [address] ? ? S ? Bun 17 mg/dL 7-17 Final [facility] mg/dL [facility] L [facility] (Internal) : [address] ? ? S ? Crea 0.70 mg/dL 0.52-1.04 Final [facility] th mg/dL [facility] L ab (Internal) : [address] ? ? S ? Ca 9.2 mg/dL 8.4-10.2 Final [facility] mg/dL [facility] L [facility] (Internal) : [address] ? ? S ? Na 139 mmol/L 137-145 Final [facility] mmol/L [facility] L [facility] (Internal) : [address] ? ? S ? K 4.1 mmol/L 3.5-5.1 Final [facility] mmol/L [facility] L [facility] (Internal) : [address] t ? ? S ? Cl 104 mmol/L 98-107 Final North mmol/L [facility] L ab (Internal) : [address] t ? ? S ? Tco2 27.0 mmol/L 22.0-30.0 Final No rth mmol/L [facility] L ab (Internal) : [address] t ? ? S ? Tp 6.4 g/dL 6.3-8.2 Final [facility] g/dL [facility] L [facility] (Internal) : [address] t ? ? S ? Alb 3.8 g/dL 3.5-5.0 Final [facility] g/dL [facility] L [facility] (Internal) : [address] t ? ? S ? Tbil 0.2 mg/dL 0.2-1.3 Final [facility] mg/dL [facility] L [facility] (Internal) : [address] ? ? S ? Alp 72 U/L 38-126 Final [facility] U/L [facility] L [facility] (Internal) : [address] ? ? S ? Alt 18 U/L 9-52 U/L Final [facility] (Sgpt) [facility] (Internal) : [address] t ? ? S ? Ast 18 U/L 14-36 U/L Final [place] (Sgot) [facility] (Internal) : [address] t 01/25/2018 HbA1C BLD High Ha1C 7.0 % 4.0-6.0 % Final Nor (Hemoglobi Countr y n a1C), Hospital Lab Blood (Internal) : [address] t 09/17/2017 Pathology TISS ? Report results below ? Fi nal [facility] Study [facility] (Internal) : [address] 01/28/2017 BNP S High Nt-probn 542 pg/mL 0-125 Final [place] (B-type p pg/mL [facility] (Internal) : Peptide), [address] Prohormone , Marley wprea N-terminal , Quant, Immunoassa y, Blood 01/28/2017 Lipid S High Chol 202 mg/dL 50-200 Final Nor th Panel, mg/dL [facility] L [facility] (Internal) : [address] ? ? S High Trig 230 mg/dL 10-150 Final [place] mg/dL [facility] (Internal) : [address] ? ? S Low Hdl 30 mg/dL 40-60 Final [place] mg/dL [facility] (Internal) : [address] t ? ? S ? Ldl 126 mg/dL 0-130 Final [place] mg/dL [facility] (Internal) : [address] t 01/10/2017 C Diff STL ? C. Diff negative negative Final [place] Toxin (Nch) [facility] Qual, PCR, (Inter nal): Stool [address] 01/10/2017 Giardia STL ? Giardia negative negative Final [place] [facility], EIA, Hospital Lab Stool (Internal) : [address] 01/10/2017 Enteric STL ? Salmonel see comments ? Fin al [place] Bacteria, la PCR [facility] Lab Specific (Interna l): Culture, [address] ? ? STL ? Shigella see comments ? Final N orth PCR [facility] (Internal) : [address] ? ? STL ? Campylob see comments ? Final N orth acter PCR [facility] (Internal) : [address] ? ? STL ? Shiga see comments ? Final Nort h Toxin PCR [facility] (Internal) : [address] t 01/10/2017 Hemoglobin STL ? Occ Bld negative negative Fin [facility] Lab e, Stool (Interna l): by [address] Immunologma[address] Ne wport c Method 01/10/2017 Neutrophil BLD ? Anc-manu 2.07 10*3/uL ? Final [place] Count, [facility] Hospital Lab (Anc), (Internal) : Blood [address] t 01/10/2017 Differenti BLD ? Polys 54 % 40-75 % Final [facility] Manual, Hospital Lab Blood (Internal) : [address] ? ? BLD ? Bands 0 % 0-5 % Final [facility] (Internal) : [address] ? ? BLD ? Lymphs 32 % 20-50 % Final [facility] (Internal) : [address] t ? ? BLD ? [place] 8 % 2-10 % Final [facility] (Internal) : [address] ? ? BLD ? Eos 6 % 0-6 % Final [facility] (Internal) : [address] ? ? BLD ? Baso 0 % 0-1 % Final [facility] (Internal) : [address] ? ? BLD ? Atyp 0 % ? Final [facility] (Internal) : [address] ? ? BLD ? Plts, adequate adequate Final [facility] (Internal) : [address] ? ? BLD ABNORMA RBC abnormal normal Final [facility] Morpholog [facility] (Internal) : [address] ? ? BLD ? Aniso small ? Final [facility] (Internal) : [address] ? ? BLD ? Poik small [hpf] ? Final [facility] (Internal) : [address] 01/10/2017 BNP S High Nt-probn 888 pg/mL 0-125 Final North (B-type p pg/mL [facility] (Internal) : Peptide), [address] Prohormone Marley Beatty N-terminal , Quant, Immunoassa y, Blood 01/10/2017 Troponin S ? Trop <0.06 NG/mL 0.00-0.06 Fin al [place] I, Serum NG/mL [facility] Lab (Internal) : [address] 01/10/2017 CMP, Serum S High g/r 108 mg/dL 74-106 Final [place] or Plasma mg/dL [facility] ([facility]) : [address] ? ? S High Bun 22 mg/dL 7-17 Final [facility] mg/dL [facility] ([facility]) : [address] ? ? S ? Crea 0.70 mg/dL 0.52-1.04 Final Nor th mg/dL [facility] (Internal) : [address] ? ? S ? Ca 8.6 mg/dL 8.4-10.2 Final [facility] mg/dL [facility] ([facility]) : [address] ? ? S ? Na 140 mmol/L 137-145 Final [facility] mmol/L [facility] (Internal) : [address] ? ? S ? K 3.9 mmol/L 3.5-5.1 Final [facility] mmol/L [facility] (Internal) : [address] ? ? S ? Cl 106 mmol/L 98-107 Final [facility] mmol/L [facility] ([facility]) : [address] ? ? S Low Tco2 21.0 mmol/L 22.0-30.0 Final No rth mmol/L [facility] (Internal) : [address] ? ? S ? Tp 6.3 g/dL 6.3-8.2 Final [facility] g/dL [facility] (Internal) : [address] ? ? S ? Alb 3.5 g/dL 3.5-5.0 Final [facility] g/dL [facility] (Internal) : [address] ? ? S ? Tbil 0.4 mg/dL 0.2-1.3 Final [place] mg/dL [facility] (Internal) : [address] ? ? S ? Alp 69 U/L 38-126 Final [place] U/L [facility] (Internal) : [address] ? ? S ? Alt 29 U/L 9-52 U/L Final [place] (Sgpt) [facility] (Internal) : [address] ? ? S ? Ast 14 U/L 14-36 U/L Final [place] (Sgot) [facility] (Internal) : [address] 01/10/2017 CBC W/ BLD Low Wbc 3.8 10*3/uL 5.0-10.0 Final [place] Auto Diff 10*3/uL [facility] (Internal) : [address] ? ? BLD ? Rbc 4.10 10*6/uL 4.10-5.30 Final N orth 10*6/uL [facility] (Internal) : [address] ? ? BLD Low Hgb 10.9 g/dL 12.0-16.0 Final Nort h g/dL [facility] (Internal) : [address] ? ? BLD Low Hct 33.6 % 37.0-47.0 Final [facility] (Internal) : [address] ? ? BLD ? Mcv 82.0 fL 80.0-96.0 Final [facility] L [facility] (Internal) : [address] ? ? BLD ? Mch 26.6 pg 26.0-32.[address] [facility] (Internal) : [address] ? ? BLD ? Mchc 32.4 g/dL 31.0-35.0 Final Nort h g/dL [facility] (Internal) : [address] ? ? BLD High Rdw 15.9 % 11.5-14.5 Final [facility] (Internal) : [address] ? ? BLD ? Plt 174 10*3/uL 130-450 Final Nort h 10*3/uL [facility] ab (Internal) : [address] 01/09/2017 Urinalysis UR ? UA-color yellow pale Final North , yellow [facility] Reflex (Internal) : Micro [address] ? ? UR ? UA-appea clear clear Final North r [facility] ab (Internal) : [address] ? ? UR ? UA-spec 1.020 1.003-1.0 Final North Grav 35 [facility] ab (Internal) : [address] ? ? UR ? UA-pH 5.5 [pH] 4.6-8.0 Final [place] [pH] [facility] ab (Internal) : [address] ? ? UR ? UA-leuk negative negative Final Nort h [facility] ab (Internal) : [address] ? ? UR ? UA-nitri negative negative Final Nor th te [facility] ab (Internal) : [address] ? ? UR ? UA-prot negative negative Final Nort [facility] ab (Internal) : [address] ? ? UR ? UA-gluc negative negative Final Nort h [facility] ab (Internal) : [address] ? ? UR ? UA-keton negative negative Final Nor th e [facility] ab (Internal) : [address] ? ? UR ? UA-urobi normal normal Final [facility] ab (Internal) : [address] ? ? UR ? UA-bili negative negative Final Nort h [facility] ab (Internal) : [address] ? ? UR ? UA-blood negative negative Final Nor [facility] ab (Internal) : [address] 12/02/2016 Culture, UR ? Final microbiology ? Final [place] Urine results [facility] ab (Internal) : [address] 12/02/2016 sensitivit MISC ? Sens* ? ? Final No rth ies[I] [facility] ab (Internal) : [address] Past Encounters 07/10/2021 Burton Mendes MD: [address], [place] [address], Ph. 07/01/2021 Burton Mendes MD: [address], [place] [address], Ph. 06/26/2021 Burton Mendes MD: [address], [place] [address], Ph. 06/25/2021 Tachycardia Burton Mendes MD: [address], [place] [address], Ph. 06/25/2021 Sinus Tachycardia Sarah Beth Mckeon MD: [address] [place] [address], Ph. 06/20/2021 Acute Lower Respiratory Tract Infection Sarah Beth Mckeon MD: [address] [place] [address], Ph. 06/17/2021 Acute Bronchitis Sarah Beth Mckeon MD: [address] [place] [address], Ph. 05/06/2021 Atherosclerosis of Coronary Artery witho ut Angina Pectoris; Alopecia; Hypertensive Disorder; Hypothyroidism; Type 2 Diabetes Mellitus without Complication Clay Josue MD: [address] [place] [address], Ph. 02/25/2021 Atherosclerosis of Coronary Artery witho ut Angina Pectoris Burton Mendes MD: [address], [place] [address], Ph. 01/08/2021 Type 2 Diabetes Mellitus without Complic ation; Vertigo; Hypothyroidism Clay Josue MD: [address] [place] [address], Ph. 12/03/2020 Obstructive Sleep Apnea Syndrome Merissa Gallegos LCSW: [address] [place] [address], Ph. 11/28/2020 Hypertensive Disorder Burton Mendes MD: [address] [place] [address], Ph. 10/08/2020 Type 2 Diabetes Mellitus without Complic ation; Atherosclerosis of Coronary Artery without Angina Pectoris; Atrial Fibrillation; Vertigo; Hypothyroidism Clay Josue MD: [address] [place] [address], Ph. 08/27/2020 Hypertensive Disorder Burton Mendes MD: [address] [place] [address], Ph. 07/09/2020 Atherosclerosis of Coronary Artery witho ut Angina Pectoris; Type 2 Diabetes Mellitus without Complication; Hypertensive Disorder Clay Josue MD: [address] [place] [address], Ph. 07/03/2020 Burton Mendes MD: [address] [place] [address], Ph. 06/12/2020 Atrial Fibrillation; Hypertensive Disord er; Type 2 Diabetes Mellitus without Complication; Depressive Disorder; Psoriasis Clay Josue MD: [address] [place] [address], Ph. 06/08/2020 Obstructive Sleep Apnea Syndrome; Irregu lar Heart Beat Merissa Gallegos LCSW: [address] [place] [address], Ph. 04/25/2020 Hyperlipidemia; Chest Pain Burton Mendes MD: [address] [place] [address], Ph. 03/02/2020 Sleep Apnea; Essential Hypertension; Pal pitations Burton Mendes MD: [address] [place] [address], Ph. Social History Tobacco Smoking Status Never Smoker Vaccine List Vaccine Type COVID-19, mRNA, LNP-S, PF, 100 mcg/0.5 m L dose (Moderna) 11/27/2020?0.5 mL 12/24/2020?100 mcg influenza, high dose seasonal 08/04/2018 influenza, high-dose, quadrivalent 07/14/2020 influenza, seasonal, injectable 07/05/2015 influenza, trivalent, adjuvanted 07/05/2019?0.5 mL pneumococcal conjugate PCV 13 09/07/2014 pneumococcal polysaccharide [id number] 10/05/2000 08/24/2017?0.5 mL Tdap 11/18/2011 zoster live 09/13/2013 Plan of Care Reminders Provider Appointments None ? ? recorded. Lab None ? ? recorded. Referral None ? ? recorded. Procedures None ? ? recorded. Surgeries None ? ? recorded. Imaging None ? ? recorded. Vitals 07/10/2021 12:00PM Office 15 Height Blood Pressure 154.94 cm 125/58 mm[Hg] 07/01/2021 11:45AM Office 15 Height Blood Pressure 154.94 cm 123/69 mm[Hg] 06/25/2021 08:40AM Follow Up 20 Height Weight BMI Blood Pressure 154.94 cm 85.3 kg 35.5 kg/m2 136/70 mm[Hg] 06/25/2021 11:30AM Follow Up 30 Height Weight BMI Blood Pressure 154.94 cm 84.9 kg 35.4 kg/m2 123/68 mm[Hg] 06/20/2021 09:40AM Follow Up 20 Height Weight BMI Blood Pressure 154.94 cm 86.27 kg 35.9 kg/m2 116/72 mm[Hg] 06/17/2021 11:00AM Acute 40 Height Weight BMI Blood Pressure 154.94 cm 85.96 kg 35.8 kg/m2 110/60 mm[Hg] 05/06/2021 10:40AM AWV 40 Height Weight BMI Blood Pressure 154.94 cm 87.23 kg 36.3 kg/m2 114/60 mm[Hg] 02/25/2021 08:30AM Follow Up 30 Height Weight BMI Blood Pressure 154.94 cm 86.1 kg 35.9 kg/m2 133/57 mm[Hg] 01/08/2021 10:20AM Follow Up 20 Height Weight BMI Blood Pressure 154.94 cm 86.78 kg 36.1 kg/m2 134/70 mm[Hg] 12/03/2020 10:45AM Office 30 Height Weight BMI Blood Pressure 154.94 cm 87.5 kg 36.4 kg/m2 139/60 mm[Hg] 11/28/2020 08:30AM Follow Up 30 Height Weight BMI Blood Pressure 154.94 cm 86.3 kg 35.9 kg/m2 151/74 mm[Hg] 10/08/2020 10:20AM Follow Up 20 Height Weight BMI Blood Pressure 154.94 cm 85.5 kg 35.6 kg/m2 140/80 mm[Hg] 08/27/2020 02:15PM Follow Up 30 Height Weight BMI Blood Pressure 154.94 cm 88 kg 36.7 kg/m2 142/70 mm[Hg] 07/09/2020 11:00AM Follow Up 20 Height Weight BMI Blood Pressure 154.94 cm 89.02 kg 37.1 kg/m2 130/70 mm[Hg] 07/03/2020 02:30PM Follow Up 30 Height Weight BMI Blood Pressure 154.94 cm 88.3 kg 36.8 kg/m2 138/68 mm[Hg] 06/12/2020 10:00AM Follow Up 20 Height Weight BMI Blood Pressure 154.94 cm 88 kg 36.7 kg/m2 134/70 mm[Hg] 06/08/2020 09:00AM New Patient 45 Height Weight BMI Blood Pressure 154.94 cm 88.54 kg 36.9 kg/m2 95/49 mm[Hg] 04/25/2020 03:30PM Follow Up 30 Height Weight BMI Blood Pressure 154.94 cm 90 kg 37.5 kg/m2 135/63 mm[Hg] 03/02/2020 02:30PM Consult 60 Height Weight BMI Blood Pressure 154.94 cm 91.12 kg 38 kg/m2 148/62 mm[Hg] 01/25/2020 10:40AM Follow Up 20 Height Weight BMI Blood Pressure 154.94 cm 89.95 kg 37.5 kg/m2 150/76 mm[Hg] 11/03/2019 09:40AM Follow Up 20 Height Weight BMI Blood Pressure 154.94 cm 93.44 kg 38.9 kg/m2 138/76 mm[Hg] 08/17/2019 11:15AM Consult 45 Height Weight BMI Blood Pressure 154.94 cm 95.7 kg 39.9 kg/m2 159/68 mm[Hg] 07/05/2019 10:00AM Follow Up 20 Height Weight BMI Blood Pressure 154.94 cm 98.49 kg 41 kg/m2 150/60 mm[Hg] 05/18/2019 08:00AM Acute 20 Height Weight BMI Blood Pressure 154.94 cm 97.43 kg 40.6 kg/m2 140/60 mm[Hg] 05/02/2019 02:20PM Follow Up 20 Height Weight BMI Blood Pressure 154.94 cm 97.34 kg 40.5 kg/m2 120/58 mm[Hg] 03/30/2019 03:40PM Follow Up 20 Height Weight BMI Blood Pressure 154.94 cm 97.1 kg 40.4 kg/m2 140/70 mm[Hg] 01/18/2019 12:20PM Lunch 20 Height Weight BMI Blood Pressure 154.94 cm 96.67 kg 40.3 kg/m2 128/76 mm[Hg] 10/28/2018 02:40PM Acute 20 Height Weight BMI Blood Pressure 154.94 cm 98.75 kg 41.1 kg/m2 128/70 mm[Hg] 09/20/2018 02:40PM Acute 20 Height Weight BMI Blood Pressure 154.94 cm 101.56 kg 42.3 kg/m2 140/80 mm[Hg] 03/03/2018 09:20AM Follow Up 20 Height Weight BMI Blood Pressure 154.94 cm 99.02 kg 41.2 kg/m2 132/72 mm[Hg] 02/24/2018 02:40PM Follow Up 20 Height Weight BMI Blood Pressure 154.94 cm 103.83 kg 43.2 kg/m2 142/78 mm[Hg] 10/22/2017 Weight Blood Pressure 99.52 kg 138/86 mm[Hg] 09/10/2017 Height Weight Blood Pressure 154.94 cm 99.79 kg 158/76 mm[Hg] 08/24/2017 Weight Blood Pressure 101.95 kg 138/80 mm[Hg] 02/16/2017 Weight Blood Pressure 102.5 kg 150/80 mm[Hg] 12/02/2016 Blood Pressure 158/80 mm[Hg] 09/23/2016 Weight Blood Pressure 104.33 kg (1) 192/88 mm[Hg] (2) 154/84 mm[Hg] 08/18/2016 Weight Blood Pressure 104.65 kg 130/74 mm[Hg] 04/03/2016 Weight Blood Pressure 107.5 kg 130/70 mm[Hg] 03/12/2016 Blood Pressure 140/84 mm[Hg] 12/17/2015 Weight Blood Pressure 105.8 kg 128/68 mm[Hg] 12/07/2015 Weight Blood Pressure 102.38 kg 118/70 mm[Hg] 11/13/2015 Weight Blood Pressure 107.32 kg 150/70 mm[Hg] 10/30/2015 Height Weight Blood Pressure 154.94 cm 105.69 kg 142/80 mm[Hg] 05/01/2014 Height Weight Blood Pressure 158.75 cm 108.86 kg 124/68 mm[Hg]
--- OUTSIDE RECORDS SUMMARY | 2021-08-16 01:44 | XMS_ITS | Encounter Summary ---
:1950 Author Care Team Providers Name Role Phone Brian Aquino MD Primary Care Provider [phone] Campos Resendiz MD Continuous Improvement Intern [phone] Reason for Visit BP check Assessment and Plan Assessment Note Pt had BP check and EKG check today in office. As per Dr. Resendiz review of BP and EKG, we will continue everything as we h ave been. Discussion Note: None recorded.Patient educational handouts: No information available. Plan of Care Reminders Provider Appointments Follow up 08/28/2021 Binh Hale 30 8:30AM MD Martín ? Follow up 12/18/2021 Campos Hale 30 11:00AM MD Martín Lab None ? ? recorded. Referral None ? ? recorded. Procedures None ? ? recorded. Surgeries None ? ? recorded. Imaging None ? ? recorded. Medications Name Start Date ? ? atorvastatin 40 mg tablet ? TAKE 1 TABLET BY MOUTH EVERY DAY cholecalciferol (vitamin D3) 125 mcg (5,000 unit) caps ule ? Take 1 capsule by mouth once a week clopidogrel 75 mg tablet ? TAKE 1 TABLET BY MOUTH ONCE DAILY duloxetine 30 mg capsule,delayed release ? TAKE 1 CAPSULE BY MOUTH ONCE DAILY ferrous sulfate 325 mg (65 mg iron) tablet ? TAKE 1 TABLET BY MOUTH THREE TIMES DAILY fluocinonide 0.05 % topical cream ? APPLY A THIN LAYER TOPICALLY TO THE AFFECT AREAS TWIC E DAILY FreeStyle Lite Strips ? USE 1 STRIP TO CHECK GLUCOSE ONCE DAILY furosemide 40 mg tablet ? TAKE 2 TABLETS BY MOUTH DAILY hydrocortisone valerate 0.2 % topical cream ? APPLY A THIN LAYER TO THE AFFECTED AREA(S) BY TOPICAL ROUTE 2 TIMES PER DAY isosorbide mononitrate ER 30 mg tablet,extended releas e 24 hr ? TAKE 1 TABLET BY MOUTH TWICE DAILY (JASON E ONE TABLET BY MOUTH IN THE MORNING AND ONE TABLET BY MOUTH AT NOON) levothyroxine 50 mcg tablet ? Take 1 tablet by mouth once daily lidocaine 4 % topical patch ? Apply 1 patch every day by topical route for 10 days. losartan 25 mg tablet ? TAKE 1 TABLET BY MOUTH ONCE DAILY meclizine 25 mg tablet ? Take 1 tablet 3 times a day by oral route as needed. metformin 500 mg tablet ? Take 1 tablet by mouth twice daily metoprolol succinate ER 100 mg tablet,extended release 24 hr ? Take 1 tablet by mouth once daily Total dose metoprolol succinate: 175 mg QD metoprolol succinate ER 25 mg tablet,extended release 24 hr ? Take 1 tablet twice a day by oral route. take 1 tablet once daily for a total dose of 175 mg Q D metoprolol succinate ER 50 mg tablet,extended release 24 hr ? Take 1 tablet every day by oral route. Total dose metoprolol succinate: Sheba t is to take 175 mg QAM, 50 mg and 25 mg QHS Mucinex 600 mg tablet, extended release ? Take 1 tablet every 12 hours by oral route for 7 days . nitroglycerin 0.4 mg sublingual tablet 06/10/2020 1 tablet as needed by sublingual route as directed. pantoprazole 40 mg tablet,delayed release ? TAKE 1 TABLET BY MOUTH ONCE DAILY (TO REPLACE OMEPR AZOLE) ProAir HFA 90 mcg/actuation aerosol inhaler ? Inhale 2 puffs every 4 hours by inhalation route for 14 days. Tylenol 325 mg capsule ? Take 2 capsules every 6-8 hours by oral route as need ed for 7 days. Vitamin B12 100 mcg tablet 06/10/2020 Take 1 tablet every day by oral route. Vitamin D2 1,250 mcg (50,000 unit) capsule 06/10/2020 Take 1 capsule every week by oral route. Xarelto 20 mg tablet ? Take 1 tablet every day by oral route in the evening. Notes: 06/25/21- reviewed with ronald lunsford Medications Administered None recorded. Vitals Height Blood Pressure 5 ft 1 in 125/58 mm[Hg] Results Lab Results None recorded. Allergies Code Code System Name Reaction Severity Onset 8658 RxNorm Hydrochlorothiazide ? ? ? Iodinated Contrast Media ? ? ? 22410 RxNorm Lisinopril Cough ? ? 28880 RxNorm Pravastatin Other ? ? Sulfa (Sulfonamide Other ? ? Antibiotics) Notes: 06/20/21 verbal review No seafood allergy. Contrast allergy. Problems Name Status Onset Date Source ? Type 2 Diabetes Mellitus without Active 09/20/2018 ? Complication History of Aortic Valve Replacement Active 05/02/2019 ? Atherosclerosis of Coronary Artery Active 05/02/2019 ? without Angina Pectoris Gastroesophageal Reflux Disease without Active 11/09/19 21 ? Esophagitis Polyp of Colon Active ? History [...] without Myelopathy Heart Murmur Active ? History History of Bariatric Surgical Procedure Active ? History Procedures Date Name Performed by ? 07/15/2019 Endoscopy Information not avai lable Notes: [facility], Upper GI 01/12/2019 Cardiac Catheterization Information not available 01/12/2019 Transcatheter Aortic Valve Replacement I nformation not available 11/01/2018 Cardiac Catheterization Information not available 10/05/1996 Gastric Bypass Information not avai lable 10/05/1995 Cholecystectomy Information not avai lable 10/05/1958 Tonsillectomy Information not avai lable 06/25/2021 XR, Chest, 2 View [facility] Radiology (Internal) [address] [place] [address] (Work Place) 06/25/2021 US, Echocardiogram, Transthoracic, [facility] Radiology (Internal) Complete [address] [place], [place] [address] (Work Place) 06/26/2021 Stove Refinisher [facility] (Internal) [address] [place] [address] (Work Place) Vaccine List Vaccine Type COVID-19, mRNA, LNP-S, PF, 100 mcg/0.5 m L dose (Moderna) 11/27/2020?0.5 mL 12/24/2020?100 mcg influenza, high dose seasonal 08/04/2018 influenza, high-dose, quadrivalent 07/14/2020 influenza, seasonal, injectable 07/05/2015 influenza, trivalent, adjuvanted 07/05/2019?0.5 mL pneumococcal conjugate PCV 13 09/07/2014 pneumococcal polysaccharide [id number] 10/05/2000 08/24/2017?0.5 mL Tdap 11/18/2011 zoster live 09/13/2013 Social History Tobacco Smoking Status Never Smoker Are you currently employed? Y Have you used IV drugs? N Are you blind or do you have N Notes: w ears glasses difficulty seeing? What is your code status? 0 How much tobacco do you chew? none What was the date of your most 02/25/2021 recent tobacco screening? Do you have an advanced directive? Y Not es: Advance Directive 03/17/2018 Do you feel safe at home? Y Do you use any illicit or N recreational drugs? What is your exercise level? 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 N Live alone or with others? alone What is your level of alcohol None consumption? Which of your hands is dominant? Right Animal exposure? Y Notes: Dog partti me Education 4 Year College Language Difficulties No Hard of hearing or deaf in one or Y Note s: no hearing aids both ears? What is your level of caffeine Occasional Notes: 1 cup coffee every consumption? days-decaf one a thu Are there any guns present in your N home? 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 Functional Status No Impairment. Past Encounters 07/10/2021 Campos Resendiz MD: [address] [place] [address], Ph. 07/01/2021 Campos Resendiz MD: [address] [place] [address], Ph. 06/26/2021 Campos Resendiz MD: [address] [place] [address], Ph. 06/25/2021 Tachycardia Campos Resendiz MD: [address] [place] [address], Ph. 06/25/2021 Sinus Tachycardia Gavva Audrey Mckeon MD: [address] [place] [address], Ph. 06/20/2021 Acute Lower Respiratory Tract Infection Sarah Beth Mckeon MD: [address] [place] [address], Ph. 06/17/2021 Acute Bronchitis Sarah Beth Mckeon MD: [address] [place] [address], Ph. History of Present Illness None recorded. Review of Systems None recorded. Physical Exam None recorded.
--- OUTSIDE RECORDS SUMMARY | 2021-08-16 01:44 | XMS_ITS | Encounter Summary ---
:1950 Author Care Team Providers Name Role Phone Brian Aquino MD Primary Care Provider [phone] Campos Resendiz MD Application Performance Engineer [phone] Reason for Visit None recorded. Assessment and Plan Assessment Note pt seen today for EKG check per Dr Resendiz she is t raise her metoprolol succinate to 175 mg qd am and 75 mg qd pm . We bere shields recheck this in one week and pt will continue to monitor hr and bp. Discussion Note: None recorded.Patient educational handouts: No [...] oral route. Total dose metoprolol succinate: Sheba spangler is to take 175 mg QAM, 50 [...] Height Blood Pressure 5 ft 1 in 123/69 mm[Hg] Results Lab Results None recorded. Allergies Code Code System Name Reaction Severity Onset 4902 RxNorm Hydrochlorothiazide ? ? ? Iodinated Contrast Media ? ? ? 89639 RxNorm Lisinopril Cough ? ? 69487 RxNorm Pravastatin Other ? ? Sulfa (Sulfonamide [...] Information not avai [place]able Notes[place] [facility] [place] Cardiac Catheterization Information not available 01/12/2019 Transcatheter Aortic Valve Replacement I nformation not available 11/01/2018 Cardiac Catheterization Information not available 10/05/1996 Gastric Bypass Information not avai lable 10/05/1995 Cholecystectomy Information not avai lable 10/05/1958 Tonsillectomy Information not avai lable 06/25/2021 XR, Chest, 2 View [facility] (Internal) [address] [place] [address] (Work Place) 06/25/2021 US, Echocardiogram, Transthoracic, [facility] Radiology (Internal) Complete [address] [place] [address] (Work Place) 06/26/2021 Accounting Associate [facility] [address] [place] [address] (Work Place) Vaccine List Vaccine Type COVID-19, [...] exercise level? 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 Functional Status No Impairment. Past Encounters 07/01/2021 Campos Resendiz MD: [address] [place] [address], Ph. 06/26/2021 Campos Resendiz MD: [address] [place] [address], Ph. 06/25/2021 Tachycardia Campos Resendiz MD: [address] [place] [address], Ph. 06/25/2021 Sinus Tachycardia Sarah Beth Mckeon MD: [address] [place] [address], Ph. 06/20/2021 Acute Lower Respiratory Tract Infection Sarah Beth Mckeon MD: [address] [place] [address], Ph. 06/17/2021 Acute Bronchitis Sarah Beth Mckeon MD: [address] [place] [address], Ph. History of Present Illness None recorded. Review of Systems None recorded. Physical Exam None recorded.
--- OUTSIDE RECORDS SUMMARY | 2021-08-16 01:44 | XMS_ITS | Encounter Summary ---
:1950 Author Care Team Providers Name Role Phone Brian Aquino MD Primary Care Provider [phone] Campos Resendiz MD Animal Ride Attendant [phone] Reason for Visit bronchitis Assessment and Plan 1. Acute lower respiratory tract infection Per last note likely had a vir al bronchitis for which she was given symptomatic care and a Z-Rusty given her r isk factors. Symptoms have slowly worsened and today her left lung sounds are littl e worse than last time. Given the fact that she has cardiovascular disease, diabetes , AV replacement, tachycardia, decreased left lower lung sounds, worsening symptoms, w ill treat symptomatically for presumed developing pneumonia and she has been gi nahid antibiotics to hold for 2 days and take if she does not get better. PSI score 61 , okay for outpatient antibiotics. Strong return precautions given. ? ProAir HFA 90 mcg/actuatio n aerosol inhaler ? Mucinex 600 mg tablet, ext ended release ? Tylenol 325 mg capsule ? Augmentin 875 mg-125 mg ta blet ? doxycycline hyclate 100 mg tablet Discussion Note: None recorded.Patient educational handouts: No information available. Plan of Care Reminders Provider Appointments Follow up 08/28/2021 Binh Hale 30 8:30AM MD Martín ? Follow up 12/18/2021 Campos Hale 30 11:00TONE Resendiz MD Lab None ? ? recorded. Referral None [...] lunsford Medications Administered None recorded. Vitals Height Weight BMI Blood Pressure 5 ft 1 in 190 lbs 3 oz 35.9 kg/m2 116/72 mm[Hg] Results Lab Results None recorded. Allergies Code Code System Name Reaction Severity Onset 5487 RxNorm Hydrochlorothiazide ? ? ? Iodinated Contrast Media ? ? ? 17238 RxNorm Lisinopril Cough ? ? 21654 RxNorm Pravastatin Other ? ? Sulfa (Sulfonamide Other ? ? Antibiotics) Notes: 06/20/21 verbal review No seafood allergy. Contrast allergy. Problems Name Status Onset Date Source ? Type 2 Diabetes Mellitus without Active 09/20/2018 ? Complication History of Aortic Valve Replacement Active 05/02/2019 ? Atherosclerosis of Coronary Artery Active 05/02/2019 ? without Angina Pectoris Gastroesophageal Reflux Disease without Active 11/09/19 ? Esophagitis Polyp of Colon Active ? [...] 07/15/2019 Endoscopy Information not avai lable Notes[place] [facility] [place] 01/12/2019 Cardiac Catheterization Information not available 01/12/2019 Transcatheter Aortic Valve Replacement I nformation not available 11/01/2018 Cardiac Catheterization Information not available 10/05/1996 Gastric Bypass Information not avai lable 10/05/1995 Cholecystectomy Information not avai lable 10/05/1958 Tonsillectomy Information not avai lable Vaccine List Vaccine Type COVID-19, mRNA, LNP-S, [...] exercise level? 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 days- one a thu Are there any guns present in your N home? 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 Functional Status No Impairment. Past Encounters 06/20/2021 Acute Lower Respiratory Tract Infection Sarah Beth Mckeon MD: [address] [place] [address], Ph. 06/17/2021 Acute Bronchitis Sarah Beth Mckeon MD: [address] [place] [address], Ph. History of Present Illness ? Upper Respiratory Symptoms Reported By: Patient Upper Respiratory Symptoms: Location: chest. Quality: productive cough, colored phlegm. Severity: moderate. Duration: symptoms lasting over 2 weeks. Onset/Timing: gradual. Context: no sick contacts, exposure to passiv e smoke. Associated Symptoms: no fever, green sputum, whee zing Note: COVID negative. Started Z-Pack on 06/17/21 for URI symptoms. Symptoms still worsening. Productive green cough, no fevers, chills, no dizziness, no loss of consciousness, no chest pains. See last note.Review of Systems: ROS as noted in the HPI Review of Systems None recorded. Physical Exam ? Notes: General: Sitting up in chair , speaking full sentences, no acute distress
HEENT: Conjuncti va pink, sclera white, mucous membranes moist
Cardio: Regular rhy thm, slightly tachycardic, no murmurs rubs or gallops
Lungs: Right lung vu clear left lung vu with mild diffuse wheezing and clearly decreas ed breath sounds, left lower lobe with decreased breath sounds compared to th e right, decreased fremitus compared to the right.
MSK: Bilateral upp er lower extremity gross strength 5/5
Neuro: Grossly nonfocal
--- OUTSIDE RECORDS SUMMARY | 2021-08-16 01:44 | XMS_ITS | Encounter Summary ---
:1950 Author Care Team Providers Name Role Phone Brian Aquino MD Primary Care Provider [phone] Campos Resendiz MD Body Component Engineer [phone] Reason for Visit Tachycardia Assessment and Plan 1. Sinus tachycardia See last few notes. Concern fo r inappropriate sinus tachycardia versus uncontrolled A. fib given persistent tachycardia, concern for developing CHF. Symptomatic with episodes of noticeable pal pitations. EKG yesterday showed sinus ta chycardia, LBBB, possible LVH, no ST/T change, all of which were seen on old EKGs on and off. She has a history of a TAVR 2019, CAD, A. fib on anticoagulation. We will get a chest x-ray, increase metopr olol by 25 mg for rate control (blood pressure 136/70, can tolerate), see if cardiology can evaluate her sooner. Differentials include: -Arrhythmia? Paroxysmal A. fib versus in appropriate sinus tachycardia. -CHF? BNP elevated 1044, acutely elevate d creatinine, denies orthopnea or lower extremity swelling however has risk factors. Echo done March 2020 showed EF 63%, February 2019 EF 72%, January 2019 EF 75% - downtrending. She is on losartan and a beta-malissa. -Infection? Considered and just treated with antibiotics, procalcitonin negative. -PE unlikely given she is on anticoagula tion. D-dimer negative. -Thyroid? Unlikely but repeat TSH ordere d. -ACS, unlikely, no signs, troponin negat onofre, EKG with no apparent acute changes. -Anemia? Hemoglobin 11.9, chronic and st able, borderline, not low enough to be causing persistent tachycardia. She is on iron ? XR, chest, 2 view Discussion Note: None recorded.Patient educational handouts: No information available. Plan of Care Reminders Provider Appointments Follow up Binh Hale 30 08/28/2021 MD Martín 8:30AM ? Follow up Campos Hale 30 12/18/2021 MD Martín 11:00AM Lab None ? ? recorded. Referral None ? ? recorded. Procedures None ? ? recorded. Surgeries None ? ? recorded. Imaging XR, Chest, [place] 2 View 06/25/2021 [facility] (Internal) Medications Name Start Date ? ? atorvastatin [...] by oral route. Total dose metoprolol succinate: Patien t is to take 175 mg QAM, [...] BMI Blood Pressure 5 ft 1 in 188 lbs 1 oz 35.5 kg/m2 136/70 mm[Hg] Results Lab Results None recorded. Allergies Code Code System Name Reaction Severity Onset 5487 RxNorm Hydrochlorothiazide ? ? ? Iodinated Contrast Media ? ? ? 03255 RxNorm Lisinopril Cough ? ? 16280 RxNorm Pravastatin Other ? ? Sulfa (Sulfonamide [...] by ? 07/15/2019 Endoscopy Information not avai labdianelys Notes: [facility], Upper GI 01/12/2019 Cardiac Catheterization Information not available 01/12/2019 Transcatheter Aortic Valve Replacement I nformation not available 11/01/2018 Cardiac Catheterization Information not available 10/05/1996 Gastric Bypass Information not avai lable 10/05/1995 Cholecystectomy Information not avai lable 10/05/1958 Tonsillectomy Information not avai lable 06/25/2021 XR, Chest, 2 View [facility] ([facility]) [address] [place], [place] [id number] (Work Place) 06/25/2021 US, Echocardiogram, Transthoracic, [facility] Radiology (Internal) Complete [address] [place] [address] (Work Place) Vaccine List Vaccine Type COVID-19, [...] exercise level? 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 Functional Status No Impairment. Past Encounters 06/25/2021 Tachycardia Campos Resendiz MD: [address] [place] [address], Ph. 06/25/2021 Sinus Tachycardia Sarah Beth Mckeon MD: [address] [place] [address], Ph. 06/20/2021 Acute Lower Respiratory Tract Infection Sarah Beth Mckeon MD: [address] [place] [address], Ph. 06/17/2021 Acute Bronchitis Sarah Beth Mckeon MD: [address] [place] [address], Ph. History of Present Illness Note: See last few notes.
Was being treated for an acute lower respiratory tract infection with antibiotics given her risk factors.
Experiencing tachypnea and tachycardia.
Labs and EKG ordered yesterday showed sinus tachycardia, left bundle branch block, possible LVH, no acute ST/T changes, some peaked T waves, poor R progression. This was comparable to her old EKGs. CMP showed an acutely elevated creatinine, elevated BNP, troponin negative, procalcitonin negative.
She has noticeable palpitations, no dizziness, no loss of consciousness, denies orthopnea, denies lower extremity edema worse than usual (chronically has right lower extremity lymphedema which is not worse than usual). She is anticoagulated for A. fib. No chest pains, no chest pressure, no arm pain, no diaphoresis. Endorses some diarrhea since starting the antibiotics.Review of Systems: ROS as noted in the HPI Review of Systems None recorded. Physical Exam ? Notes: General: Sitting up in chair , speaking full sentences, no acute distress
HEENT: Conjuncti va pink, sclera white, mucous membranes moist
Cardio: Regular rat e, tachycardic, no murmurs rubs or gallops
Lungs: Decreased breath sounds bilateral lower lobes
Abdomen: Soft, nondistended, nontende r, no masses palpated
MSK: Bilateral upper lower extremity gross streng th 02/06
Neuro: Grossly nonfocal
<div>Extremities : Right lower extremity with chronic appearing lymphedema, left lower extre mity trace-1+ nonpitting edema.
</div>
--- OUTSIDE RECORDS SUMMARY | 2021-08-16 01:44 | XMS_ITS | Encounter Summary ---
:1950 Author Care Team Providers Name Role Phone Brian Aquino MD Primary Care Provider [phone] Campos Resendiz MD Scientific Technical Writer [phone] Reason for Visit None recorded. Assessment and Plan Assessment Note Aby was seen in our office toda y for an Ekg check . sent her down to ER to get 5 mg lopressor IV. Pt is ba ck up for another EKG check. Per no med changes today ,will recheck in one w [place]. Discussion Note: None recorded.Patient educational handouts: No [...] ronald lunsford Medications Administered None recorded. Vitals None recorded. Results Lab Results None recorded. Allergies Code Code System Name Reaction Severity Onset 0529 RxNorm Hydrochlorothiazide ? ? ? Iodinated Contrast Media ? ? ? 13218 RxNorm Lisinopril Cough ? ? 28169 RxNorm Pravastatin Other ? ? Sulfa (Sulfonamide [...] 07/15/2019 Endoscopy Information not avai lable Notes: [facility] [place] GI 01/12/2019 Cardiac Catheterization Information not available 01/12/2019 Transcatheter Aortic Valve Replacement I nformation not available 11/01/2018 Cardiac Catheterization Information not available 10/05/1996 Gastric Bypass Information not avai lable 10/05/1995 Cholecystectomy Information not avai lable 10/05/1958 Tonsillectomy Information not avai lable 06/25/2021 XR, Chest, 2 View [facility] [address] [place] [address] (Work Place) 06/25/2021 US, Echocardiogram, Transthoracic, [facility] Radiology (Internal) Complete [address] [place] [address] (Work Place) 06/26/2021 Microfiche Duplicator [facility]) [address] [place] [address] (Work Place) Vaccine List Vaccine Type COVID-19, [...] exercise level? 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 days-decaf one a mon Are there any guns present in your N home? 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 Functional Status No Impairment. Past Encounters 06/26/2021 Campos Resendiz MD: [address] [place] [address], Ph. 06/25/2021 Tachycardia Campos Resendiz MD: [address] [place] [address], Ph. 06/25/2021 Sinus Tachycardia Sarah Beth Mckeon MD: [address] [place] [address], Ph. 06/20/2021 Acute Lower Respiratory Tract Infection Sarah Beth Mckeon MD: [address] [place] [address], Ph. 06/17/2021 Acute Bronchitis Sarah Beth Mckeon MD: [address] [place] [address], Ph. History of Present Illness None recorded. Review of Systems None recorded. Physical Exam None recorded.
--- OUTSIDE RECORDS SUMMARY | 2021-08-16 01:44 | XMS_ITS | Encounter Summary ---
:1950 Author Care Team Providers Name Role Phone Brian Aquino MD Primary Care Provider [phone] Campos Resendiz MD Mold Sprayer [phone] Reason for Visit Follow Up Echo; Atrial Fibrillation; pal pitations; CAD - Coronary Artery Disease Assessment and Plan Assessment Note Date: February 25, 2021 Referring: Re: Aby Velasco 70-year-old woman Problems: 1. Aortic stenosis. TAVR January 2019. 23 mm Scales Yumiko 3 valve. Patient describing significant shortness of breath with aortic stenosis. This improved following valve replacement. 2. Coronary disease. [facility] January 2019: 100% RCA. MANAGER UTILITIES. She does occasional note chest and left shoulder discomfort that is not exertionally mediated. She is taken sublingual nitroglycerin for this 3 times in the last year. No acceleration. Throughout much of 2019, used nitroglyce rin only once in the setting of psychosocial stress with her son. June 2020: Non-ST elevation [place] with troponin peak 0.42. This occurred in context of paroxysmal atrial fibrillation, rates 130 bpm. Thought to represent a type II event. Patient admitted overnight, discharged with downtrending troponins. No coronary evaluation. Had been describing chest discomfort as above, positive impact with Imdur started summer 2019. 3. Obstructive sleep apnea. Using CPAP since spring 2020. 4. Palpitations. She notes palpitations for 30 to 60 brooke sean 1 time or so per week. She will feel some sustained pounding. She has noted palpitations since she was 39. ZIO monitor summer 2019: Bursts of SVT. Palpitations noted with PACs, PVCs, SVT. No Atrial fibrillation. 5. Atrial fibrillation. Atrial fibrillation identified during eep evaluation June 2020. Atrial fibrillation rapid, 131 bpm. Evaluated ER: Sinus rhythm. Patient noted palpitations on setting in the head cook hours, about 4?5 AM. Had several hours atrial fibrillation total. Atrial fibrillation not identified on Holter, not identified on 2019 ZIO monitor 2 weeks. Atrial fibrillation would appear to be c linically apparent with palpitations/tachycardia. C2V = 4; age greater than 65, hypertensi on, vascular disease, gender. Anticoagulated with apixaban. 6. Prolonged QT interval. Appreciated admission June 2020. Fl uoxetine stopped. As I have reviewed June 2020 EKGs, I do not see significant QT prolongation. Patient does have left bundle branch block, no QT intervals greater than 500 ms. 7. Left bundle branch block. Intermittent left bundle branch block on EKGs. At times bundle branch block would appear to be a rate related phenomenon, however occasionally at slower heart rates during sinus rhythm she will still ex hibit a left bundle branch block. She valle s rarely had EKGs with tachycardia and normal or mildly widened QRS. 8. Lymphedema. She has lymphedema in her right lower ex tremity, she is on chronic diuretic for this. Uses support hose when she can, she elevates her legs otherwise. HPI: Evaluated ER March 16, 2021. Right s houlder pain x2 days with radiation into neck and chest. Shooting discomfort. Worsened with cough. Chest x-ray, troponin x1 -. Discharged. EKG at time of evaluati on demonstrating possible sinus tachycar ailyn 103 bpm. She began to note her heart rates increa sing to the 95-100 bpm range in May. This has been a consistent issue since initiation. Since June 12 she has been describin g a terrible cough with green sputum, no fever or chills. Negative Covid test (June 13). Was treated for bronchitis with Zithromax; antibiotics eventually bernard nged to Augmentin doxycycline because of persistent sputum production and cough. Symptoms improved on second combination of antibiotics, less cough less sputum production. She has had some wheezing which is albut vlad responsive. Overall, she is describing increasing sh ortness of breath. She is now short of breath ambulating across the parking lot. This has been ongoing since the early part of June. Her weight is stabl e, about 187 pounds. She has stable una pheral edema (lymphedema on the right side), overall unchanged. Continues to use support hose. Sleeps on 1 pillow. No PND orthopnea. No chest discomfort. No presyncope or syncope. Palpitations a s above. No bleeding problems. She has occasional vertigo which is meclizine responsive. Her exercise profile has declined since symptoms began in early June. She was in [place] in May, walking 30 to 40 minutes daily. Patient continues to live alone. She rider s her own cooking shopping cleaning etc. she has a boyfriend Jessee. She spends a lot of time there. 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 In March and April: Walking 30 minutes maira ly. She uses her [place] rider for about 5 minutes/day, 25 reps. CPAP was recalled early May 2021. No real change in sleep quality/fatigue. At home: Systolic blood pressures in the in the 130-mmHg range, heart rates are 80-90 bpm. DATA: Cardiac risk factors: Positive diabetes. Positive hypertension. Negative tobacco. Negative cholesterol. Positive family history. Social history: Activity profile as abov e. Negative tobacco. Negative alcohol. Past medical history: Depression. Interv ertebral disc displacement. Bariatric surgery. Hypothyroidism. Peripheral neuropathy. Lymphedema praecox. Venous insufficiency. Colonic polyps. Psoriasis. Severe obesity. Review of systems: A 10-point review of systems was obtained. Pertinent positives as described in HPI, all others negative. Allergies: Sulfa Contrast allergies: Positive. Uses [employer]o ids prior to contrast exposure. Echo: June 25, 2021. LVEF 45%. Sept um is paradoxical. Anteroseptal inferoseptal inferior wall is hypokinetic. Mild concentric LVH. Diastolic indices indeterminate. Right ventricle normal size and f unction. Left atrium severely dilated, 5 1.8. Right atrium normal. Bioprosthetic aortic valve. Normal function. Peak velocity 2.4 m/s. Mean gradient 12 mmHg. DOI 0.53. Acceleration time 74 ms. Trace AI. No paravalvular leak appreciated. 1+ MR. At least moderate MAC. Trace TR. Pulmonary pressure 20-30 mmHg. Trivial PI. Normal pericardium. Aortic root normal 3.2. Ascending normal 3.4. Arch normal 2.2. No coarctation. No PDA. IVC normal. E prim ed 10, 10 (7, 10). E/E primed average 15.3 (14). TR max 2.2 (2.8). March 08, 2020. [facility]. LVEF 63%. Trupti l size. Mild LVH. Right ventricle normal. Left atrium moderately dilated. Right atrium normal. Bioprosthetic aortic valve. Peak velocity 2.37 m/s. Mean gradient 1 2 mmHg. Mild paravalvular leak, 3?4:00 i n the short axis view. 1+ MR. Trace TR. Trace PI. Normal pericardium. Aortic root normal. Ascending aorta normal. Pulmonary artery normal. IVC normal. E pr imed 4, 6 (7, 10). E/E primed average 21 (14). Pulmonary pressure 15-20 mmHg plus right atrial pressure (15-25 mmHg total). February 06, 2019. [facility]. LVEF 72%. Normal size. Mild LVH. Right ventricle normal. Left atrium severely dilated, right atrium normal. Pulmonary pressure not assessable. Bioprosthetic aortic valve. Paraval vular leak, mild, 3?4 o'clock position s hort axis view. Peak velocity 2.7 m/s. Mean gradient 15 mmHg. 1?2+ MR. 1+ TR. Trace PI. Normal pericardium. Aortic root normal. Mild ascending aorti c dilatation. IVC normal. E primed 10, 1 0 (7, 10). E/E primed 23.8, 23.8 (15, 12). Pulmonary pressure not assessable. January 12, 2019. [facility]. LVEF 75%. Ailyn stolic filling pattern consistent with impaired LV relaxation. Right ventricle normal. Aortic valve bioprosthesis. Mean gradient 12 mmHg. Paravalvular leak. Mild. 1?2+ MR. Trace TR. Normal pericardium. Aorta normal. Cardiac MRI: Stress: LHC: November 01, 2018. [facility]. RA renny n pressure 14 mmHg. RV pressure 42/30 mmHg. PA pressure 42/11 mmHg. Wedge pressure mean 18 mmHg. Cardiac output 4.99 index 2.55. pulmonary artery saturation 60%. Left main: Mild disease. LAD mild diseas e. Mid 35%. LCx: Mild disease. RCA: 100% proximal. Distal flow from LAD. Heavily calcified ascending aorta, coron john arteries, MAC. Holter: June 09, 2019. 24-hour study . Baseline rhythm sinus. Rare single PAC. 9 burst SVT, longest 11 beat duration, fastest 140 bpm. Some bursts appear to be regular, predominantly short RP type id entified. Rare single PVC. No VT. No bra dycardia/block. Average rate 63 bpm, range 50-117 bpm. Pain between shoulder blades sinus rhythm x4, 57?71 Bpm, no ST-T wave changes. Palpitations sinus rh ythm 69 bpm. Chest heaviness sinus rhyth m 61, no ST-T wave changes. Shortness of breath sinus rhythm 76 bpm, no ST-T wave changes. SVT appears to occur in both diurnal and nocturnal hours. Event monitor: March 28, 2020. DANIEL moyao r. 11 days 9 hours. Baseline rhythm sinus. Average rate 65, range 49-138 bpm. Intermittent left bundle branch block. No significant pauses. No high-grade AV condu ction block. Rare single PAC. 68 runs SV T, longest 14.2 seconds, fastest 179 bpm. Junctional rhythm intermittently noted. Rare single PVC. No VT. 3 diary entries. Symptoms: Fluttering racing dyspnea lig htheadedness back shoulder pain correspo nding to sinus rhythm plus/minus PAC/PVC, once noted with a 5-beat run SVT. EKG: June 25, 2021. Sinus rhythm 10 1 bpm. Left bundle branch block. QT/QTc 390/469 ms. QRS 154 ms. June 24, 2021. Sinus tachycardia 10 3 bpm. Left bundle branch block. QRS 158 ms. March 16, 2021. Sinus rhythm 103 bpm. Lef t axis deviation. LVH. Q wave V1, V2. No acute change. QT/QTc 352/461 ms. QRS 113 ms. February 25, 2021. Sinus rhythm 62 bpm. Left axis deviation. LVH. Q wave V1 V2. Nonspecific ST-T wave changes. QT/QTc 444/447 ms. QRS 116 ms. November 28, 2020. Sinus rhythm 66 bpm. Left axis deviation. LVH. Q waves V1 V2. No acute change. QT/QTc 438/448 ms. QRS 118 ms. August 27, 2020. Sinus rhythm 63 bpm. Left axis deviation. LVH. Q wave V1 V2. V3. No acute change. QT/QTc 450/455 ms. QRS 116 ms. June 29, 2020. Sinus rhythm 64 bpm. Incomplete left bundle branch block. Left axis deviation. Q wave V1 V2. June 10, 2020. Sinus rhythm 59 bpm. Left bundle branch block. QT/QTc 488/487 ms. QRS 156 ms. June 08, 2020. Sinus rhythm 63 bpm. Left bundle branch block. QT/QTc 490/495 ms. QRS 156 ms. June 08, 2020. Atrial fibrillation 1 31 bpm. Left bundle branch block. QRS 152 ms. April 25, 2020. Sinus rhythm 58 bpm. Left axis deviation. Left anterior hemiblock. LVH. No acute change. Q waves leads V1 V2. QT/QTc 452/449 ms. March 05, 2020. Sinus rhythm 67 bpm. Left axis deviation. LVH. Poor R wave progression across precordial leads. No acute change. QT/QTc 426/438 ms. March 02, 2020. Sinus rhythm 67 bpm. Left axis deviation. LVH. Poor R wave progression across precordial leads. QT/QTc 426/438 ms. QRS 112 ms. January 12, 2019. [facility]. Sinus rhythm 72 bpm. Left bundle branch block. QT/QTc 438/479 ms. November 01, 2018. [facility]. Sinus rhyth m 55 bpm. Normal axis. LVH. No acute change. QT/QTc 462/441 ms. Radiology: June 25, 2021. Chest x-r ay. Mild left basilar atelectasis. January 12, 2019. [facility]. CT angiogram abdomen and pelvis with contrast. Celiac artery: Mild stenosis. SMA: Moderate stenosis. Renal arteries are widely patent. MARCELA widely patent. Unexpected 11 mm rachid d-appearing right renal inferior pole le minor suspicious for neoplasm. Pulmonary function test: Labs: June 24, 2021. TSH normal 3.3 5. BUN/creatinine 27/1.3. Lites normal. AST low 14, ALT normal. Procalcitonin normal less than 0.15. proBNP 1044. Troponin 15.02 (60). D-dimer -0.3. Hemoglobin/hematocrit 11.9/34.8. WBC, platelet normal. June 13, 2021. Covid negative. January 04, 2021. TSH normal 2.03. June 29, 2020. AST/ALT normal. Tota l cholesterol 117, HDL 37, LDL 46, triglycerides 172. June 082019. Troponin 0.23, 0.42 , 0.26, 0.10. proBNP 3940. BUN/creatinine 29/0.7. Lites normal. Hematocrit 35.5, CBC normal otherwise. January 27, 2020. TSH normal 1.9. BUN/crea tinine 18/0.6. Lites normal. AST/ALT normal. WBC 4.6. CBC normal otherwise. October 01, 2019. Ferritin low 9. Iron normal 68, TIBC normal 421, iron saturation low 16. Total cholesterol 154, HDL 33, LDL 86, triglycerides 173. January 28, 2017. proBNP 542. Medications: Atorvastatin 40 mg daily, P lavix 75 mg daily, Lasix 40 mg daily, isosorbide mononitrate 30 mg every morning, q. noon, losartan 25 mg daily, Toprol succinate 125 mg daily, Xarelto 20 mg daily Vitamin D2, vitamin B12, Tylenol, ProAir , pantoprazole, Mucinex, Metformin, meclizine, levothyroxine, iron, duloxetine, vitamin D3 Exam: Blood pressure: 123/68 Heart rate: 109 Oxygen saturation: 98% Weight: 187 pounds, 189 pounds, 190 poun ds, 194 pounds, 194 pounds, 198 pounds, 200.9 pounds General: Patient alert oriented appropri ate conversant. HEENT: JVP 7 cm sitting. Heart: Regular, tachycardic, distant S1- S2 Lungs: Clear to auscultation bilaterally . Abdomen: Soft. Nontender. Nondistended. Extremities: Mild nonpitting edema left, more significant on the right. In support ada,. Assessment: 1. Coronary artery disease. [facility] 2018: MANAGER UTILITIES RCA. I presume this is col lateralized, she appears to recognize the term. I cannot identify any symptoms directly referable to coronary disease. She has some rather atypical nonexertional chest discomfort rarely, for which she uses sublingual nitroglycerin (not clear as to the effect of nitro as such). Episode of psychosocial stress April 14, 2020: Developed heaviness that went into her shoulders. She took 2 sublingual nitroglycerin (burned under her tongue), this relieved her discomfort. She maintains a reasonable activity prof ile. No exertional symptoms. Maintained on aspirin, beta-malissa stat in, Imdur. I think she has had good result with Imd ur. NSTEMI June 2020 in setting of rapi d atrial fibrillation. Likely type II event. Troponin peak 0.42 with elevated proBNP. Likely related to chronic coronary disea se: RCA MANAGER UTILITIES collateralized. I had felt that if patient could increas e functionality and do well with this then we would follow. If limiting exertional chest discomfort or shortness of breath develops, then perhaps would need to co nsider ischemic evaluation and possible MANAGER UTILITIES intervention. With atrial fibrillation and need for an ticoagulation, antiplatelet agent changed from aspirin to Plavix 75 mg daily. February 2021: Maintaining reasonable functio nality and appears to be doing well with that. No exertional symptoms. She enjoys her exercise (walks). Using her [place] rider. Exercises is well-tolerated. 2. Cardiomyopathy. Noted today, June 25, 2021. LVEF de crementing from 65+ percent historically (most recently March 2020) to 45%. Paradoxical septum appreciated with anteroseptal inferoseptal inferior hypokinesis. Ind eterminate diastolic indices. Unclear rh ythm (103 bpm), no obvious A wave appreciated on echo. Normal functioning bioprosthetic aortic valve. Etiology of cardiomyopathy is unclear. I am suspicious of a tachycardia mediated mechanism. When evaluated in ER March 2021 for arm d iscomfort, EKG looked like sinus rhythm 103 bpm. Troponin negative x1 during that evaluation. Was maintaining her usual functionality through May. 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 June 12 was evaluated for what appea red to be bronchitis with increased cough and sputum. Eventually antibiotics would make the symptoms improve, however she was describing increased shortness of br eath over this timeframe, and she has de scribed persistent dyspnea since antibiotic use. Today, June 25, 2021, I do not thin k she is describing classic signs or symptoms of heart failure otherwise: Chronic stable edema, lymphedema on the right, stable weight, no PND orthopnea. Just dyspnea with exertion. Evaluation thus far June 2021 also demonstrating normal-appearing chest x- ray, negative troponin x1, elevated proBNP (1044), very mild anemia, negative D- dimer, normal thyroid function. She is currently maintained on beta-bloc ker, ARB, low-dose loop diuretic. I did not alter these medications. Should probably consider ischemic evalua tion with new cardiomyopathy. 3. Tachycardia. She has a history of atrial fibrillation . One EKG I can identify is suspicious for atrial fibrillation (irregular, 130 bpm, left bundle branch block pattern). EKGs March 2021 as above, what appears to be sinus rhythm 103 bpm. EKG June 24: What appears to be sinus tachycardia 103 bpm, left bundle branch block pattern. June 25 EKG: Sinus rhythm 101 bpm with left bundle branch block pattern. Hung guillaume EKG is demonstrating sinus rhythm (usually narrow complex QRS although occasional left bundle branch pattern) around 60-65 bpm. I cannot identify any clear atrial defle ctions beyond what I presume is her P wave. I am suspicious that she has either atri al flutter or atrial tachycardia. We agreed to increase metoprolol succina te from 125 mg every morning to 150 mg every morning, 50 mg every afternoon. She will continue to follow her vital signs. She will come into the office in 2 days for an EKG. She will let us know if she has any problems with this strategy. We entertained the option of going to th e ER, starting an IV AV branden agent like diltiazem, or even tempting diagnostics with adenosine. We agreed with trialing things at home first. We will arrange for monitor when we see her back in 2 days. 4. TAVR. 2019. Small paravalvular leak post procedure. 2019. Aortic valve bioprosthesis. Mean g radient 12 mmHg. Paravalvular leak. Mild. 2019. Bioprosthetic aortic valve. Parava lvular leak, mild, 3?4 o'clock position short axis view. Peak velocity 2.7 m/s. Mean gradient 15 mmHg. 2019. Bioprosthetic aortic valve. Peak v elocity 2.37 m/s. Mean gradient 12 mmHg. Mild paravalvular leak, 3?4 o?clock in the short axis view. June 25, 2021. Bioprosthetic aortic valve. Normal function. Peak velocity 2.4 m/s. Mean gradient 12 mmHg. DOI 0.53. Acceleration time 74 ms. Trace AI. No paravalvular leak appreciated Stable valve function. 5. Atrial fibrillation. Identified June 2020. Clinically ap parent with palpitations (she has multiple causes of palpitations). Atrial fibrillation appears to be paroxy smal. Only identified on one EKG. Moderate left atrial dilatation, right a trium normal 2019 echo. Anticoagulated with Xarelto. Maintained on beta-malissa. 6. Obstructive sleep apnea CPAP. 7. Hypertension. Maintained on losartan, loop diuretic, b eta-malissa, Imdur. Today, February 25, 2021, I think her numbers are reasonable. Maintained ARB, loop diuretic, beta-bloc ker, long-acting nitrate. 8. Lipids. June 2020 LDL: 46. Thank you for allowing me to participate in this patient's care. Sincerely, Campos Resendiz MD, [facility] Disposition: We will see her back 6 erika hs time: 20-minute [id number] interview, 10-minute chart review development completion 1. Tachycardia ? metoprolol succinate ER 10 0 mg tablet,extended release 24 hr ? metoprolol succinate ER 50 mg tablet,extended release 24 hr Discussion Note: None recorded.Patient educational handouts: No information available. Plan of Care Reminders Provider Appointments Follow up 08/28/2021 Binh Hale 8:30AM MD Martín ? Follow up 12/18/2021 Campos Hale 11:00AM MD Martín Lab None ? ? [...] BMI Blood Pressure 5 ft 1 in 84.9 kg 35.4 kg/m2 123/68 mm[Hg] Results Lab Results None recorded. Allergies Code Code System Name Reaction Severity Onset 5487 RxNorm Hydrochlorothiazide ? ? ? Iodinated Contrast Media ? ? ? 99960 RxNorm Lisinopril Cough ? ? 13670 RxNorm Pravastatin Other ? ? Sulfa (Sulfonamide [...] 07/15/2019 Endoscopy Information not avai lable Notes: [facility], Upper GI 01/12/2019 Cardiac Catheterization Information not available 01/12/2019 Transcatheter Aortic Valve Replacement I nformation not available 11/01/2018 Cardiac Catheterization Information not available 10/05/1996 Gastric Bypass Information not avai lable 10/05/1995 Cholecystectomy Information not avai lable 10/05/1958 Tonsillectomy Information not avai lable 06/25/2021 XR, [facility] [address] [place] [address] (Work Place) 06/25/2021 US, Echocardiogram, Transthoracic, [facility] (Internal) Complete [address] [...] exercise level? 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 Functional Status No Impairment. Past Encounters 06/25/2021 Tachycardia Campos Resendiz MD: [address] [place] [address], Ph. 06/25/2021 Sinus Tachycardia Sarah Beth Mckeon MD: [address] [place] [address], Ph. 06/20/2021 Acute Lower Respiratory Tract Infection Sarah Beth Mckeon MD: [address] [place] [address], Ph. 06/17/2021 Acute Bronchitis Sarah Beth Mckeon MD: [address] [place] [address], Ph. History of Present Illness None recorded. Review of Systems None recorded. Physical Exam None recorded.
--- OUTSIDE RECORDS SUMMARY | 2021-08-16 01:45 | XMS_ITS | Encounter Summary ---
:1950 Author Care Team Providers Name Role Phone Brian Aquino MD Primary Care Provider [phone] Campos Resendiz MD Manual Machinist [phone] Reason for Visit upper respiratory symptoms Assessment and Plan 1. Acute bronchitis Likely acute viral bronchitis given that her family had similar symptoms in her lungs sound bronchial with some diff use mild wheezing. Does not feel like she needs inhalers, oxygen saturation good, blood pressure good. Borderline tachycardic. Given her age and significant cardiac hi story will err on the side of caution and prescribe a Z-Rusty. Strong return precaut ions given for a few days in case he does not get better. Supportive care instructions given for home ? Zithromax Z-Rusty 250 mg tab let Discussion Note: None recorded.Patient educational handouts: No [...] BMI Blood Pressure 5 ft 1 in 189 lbs 8 oz 35.8 kg/m2 110/60 mm[Hg] Results Lab Results None recorded. Allergies Code Code System Name Reaction Severity Onset 5487 RxNorm Hydrochlorothiazide ? ? ? Iodinated Contrast Media ? ? ? 81557 RxNorm Lisinopril Cough ? ? 64780 RxNorm Pravastatin Other ? ? Sulfa (Sulfonamide [...] 07/15/2019 Endoscopy Information not avai lable Notes: [facility] [place], Upper GI 01/12/2019 Cardiac Catheterization Information not [...] Never Smoker Are you currently employed? Y What is your code status? 0 How much tobacco do you chew? none Animal exposure? Y Notes: Dog partti me What is your level of alcohol None consumption? Did the fall result in an injury? N Education 4 Year College Are there any guns present in your N home? Have you used IV drugs? N Are you blind or do you have N Notes: w ears glasses difficulty seeing? What was the date of your most 02/25/2021 recent tobacco screening? Do you have an advanced directive? Y Not es: Advance Directive 03/17/2018 Do you feel safe at home? Y Do you use any illicit or N recreational drugs? What is your exercise level? 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 Right Live alone or with others? alone Language Difficulties No Hard of hearing or deaf in one or Y Note s: no hearing aids both ears? What is your level of caffeine Occasional Notes: 1 cup coffee every consumption? 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 Functional Status No Impairment. Past Encounters 06/17/2021 Acute Bronchitis Sarah Beth Mckeon MD: [address] [place] [phone], Ph. History of Present Illness ? Upper Respiratory Symptoms Reported By: Patient Upper Respiratory Symptoms: Location: chest. Quality: productive cough, colored phlegm. Associated Symptoms: no fever, green sputum, wheezing Notes: About 5-6 days of productive cough, no fevers, drinks plenty of water. Multiple [facility] members with similar symptoms, they have gotten mikhail gaytan. Covid test negative recently. Has significant ca rdiac history. No nausea/vomiting, no diarrhea /constipation, no abdominal pain. No ear pain. Note: Patient states that this hac been going on for 1 week. Patient states that her family has had the same symptoms. Patient states that she has a productive cough with green phlegm. Patient states that she is able to lay down. Patient states that she ribs are sore from coughingReview of Systems: ROS as noted in the HPI Review of Systems None recorded. Physical Exam ? Notes: General: Sitting up in chair , speaking full sentences, no acute distress
HEENT: Conjuncti va pink, sclera white, mucous membranes moist, oropharynx clear, no cervica l lymphadenopathy
Cardio: Borderline tachycardic but regular, no murmurs rubs or gallops
Lungs: Bronchial breath sounds with diffuse mild whe ezing.
Abdomen: Soft, nondistended, nontender, no masses palpated
MSK: B ilateral upper lower extremity gross strength 5/5
Neuro: Grossly nonfoc al
[2021-08-16 08:35] VITALS: BP 110/49; PULSE 70; RESP 28; TEMP 35.4; O2SAT 99
[2021-08-16] MEDS: Normal Saline 500 ML 30 ML IV (09:00)
[2021-08-16] MEDS: Normal Saline Flush 10 ML SYR IVP (09:00)
[2021-08-16 09:15] VITALS: BP 88/53; PULSE 70; TEMP 36.6; O2SAT 98
[2021-08-16 09:30] VITALS: BP 105/69
[2021-08-16 09:40] VITALS: BP 88/55; PULSE 84; TEMP 36.9; O2SAT 99
[2021-08-16 10:30] VITALS: BP 109/72; PULSE 62; TEMP 36.5; O2SAT 98
== END 2021-08-16 01:41 | disposition home or self-care (01) ==
PROVIDERS: Visit Provider Family Medicine
DX: U07.1 COVID-19 (principal)
CPT/HCPCS: 96365

== ENCOUNTER 2021-08-22 14:57 | Inpatient (IN) | payer MEDICARE, OTHER, SELFPAY ==
[2021-08-22] VITALS (29 sets, daily range): BP systolic 91–113; BP diastolic 45–77; PULSE 85–134; RESP 16–30; TEMP 36.6; O2SAT 92–99
--- NOTE | 2021-08-22 15:30 | RT.EKG_ITS ---
APPROVED REPORT Exam: Resting ECG Reason for Exam: sob Patient Location: E HR:124 bpm ECG Measurements Heart Rate 124 AXIS GA 128 P 0 QRSd 163 QRS -54 QT 383 T 112 QTc 551 Conclusion Sinus tachycardia with irregular rate...V-rate 84-174, variation>10% Left bundle branch block...QRSd>120, broad/notched R ST elevation secondary to IVCD...Multiple VCG criteria
--- NOTE | 2021-08-22 16:00 | DI.RAD_ITS ---
Exam(s) XR PORTABLE CHEST AP EXAM: XR PORTABLE CHEST AP CLINICAL HISTORY: sob TECHNIQUE: 2D digital imaging was performed. COMPARISON: CT ABD PELVIS WO CONTRAST from 07/07/2012 CT ABD PELVIS WO CONTRAST from 07/07/2012 FINDINGS: The heart is mildly enlarged. valve replacement is seen. There is some vascular prominence mildly inter and increased interstitial markings which could indicate CHF. No focal area of consolidation o r visible effusion. No pneumothorax. Degenerative postsurgical changes in the shoulders. Degenerat onofre changes are noted in the spine. IMPRESSION: Question of mild CHF. DATA REPOSITORY: RADIATION DOSE DELIVERED:
[2021-08-22 16:31] LABS: Abs Immature Grans 0.05 10^3/uL (0.0-0.06); Absolute Basophil Count 0.01 10^3/uL (0.0-0.2); Absolute Eosinophil Count 0.25 10^3/uL (0.0-0.7); Absolute Lymphocyte Count 0.69 10^3/uL (1.2-3.4); Absolute Monocyte Count 0.22 10^3/uL (0.1-0.8); Absolute Neutrophil Count 4.44 10^3/uL (1.2-6.7); Basophils % 0.2; Eosinophils % 4.4; HCT 33.1 % (36.0-46.0); HGB 10.8 g/dL (11.2-15.7); Immature Grans % 0.9; Lymphocytes % 12.2; MCH 30.3 pg (27.0-33.0); MCHC 32.6 % (32.0-36.0); MCV 92.7 fL (80-95); MPV 10.5 fL (8.0-11.0); Monocytes % 3.9; Neutrophils % 78.4; Nucleated RBC 0 %; Platelet Count 251 10^3/uL (130-400); RBC 3.57 10^6/uL (3.93-5.22); RDW 14.1 % (11.7-14.6); RDW-SD 47.9 fL; WBC 5.66 10^3/uL (4.4-10.8)
--- NOTE | 2021-08-22 16:47 | DI.VRAD_ITS ---
PROCEDURE INFORMATION: Exam: XR Chest Exam date and time: 08/22/2021 4:15 PM Age: 70 years old Clinical indication: SOB TECHNIQUE: Imaging protocol: XR of the chest. Views: 1 view. COMPARISON: MRI - L UPPER JOINT WO CONT 05/09/2016 3:38 PM FINDINGS: Lungs: Increased interstitial lung markings are noted, predominantly in the lower lung zones. There is prominence of the bilateral pulmonary venous vasculature. No consolidation. Pleural spaces: No pleural effusion. No pneumothorax. Heart/Mediastinum: No cardiomegaly. A valvular stent is noted in place. Bones/joints: Unremarkable. IMPRESSION: 1. Increased interstitial lung markings, which could represent chronic lung scarring or acute interstitial process such as interstitial pulmonary edema or mild infection. Correlate with clinical findings. 2. No significant consolidation. Dictated and Authenticated by: Tennille Reyes MD. Ordering:ALICE Jacobson MD
[2021-08-22 16:52] LABS: ALT 58 U/L (14-59); AST 19 U/L (15-37); Albumin 3.2 g/dL (3.4-5.0); Alkaline Phosphatase 129 U/L (46-116); Anion Gap 11.8 mmol/L (3-11); BUN 31 mg/dL (7-18); Bilirubin, Total 0.6 mg/dL (0.2-1.0); CO2 24.2 mmol/L (21.0-32.0); CREATININE 1.2 mg/dL (0.55-1.02); Calcium 8.6 mg/dL (8.5-10.1); Chloride 107 mmol/L (98-107); Estimated GFR 44.29 (mL/min/1.73m2); Glucose 201 mg/dL (74-106); Magnesium 1.6 mg/dL (1.8-2.4); NT-proBNP 8660 pg/mL (<300); Potassium 3.9 mmol/L (3.5-5.1); Sodium 143 mmol/L (136-145); TSH (W/Ref FT4) 1.98 uIU/mL (0.36-3.74); Total Protein 6.3 g/dL (6.4-8.2); Troponin I < 0.05 ng/mL (<0.06)
[2021-08-22] MEDS: Lactated Ringers 250 ML 1000 ML IV (17:14)
--- NOTE | 2021-08-22 17:58 | ED.GENADUL_ITS ---
Discharge Plan Disposition Patient Disposition: [facility] INPATIENT Condition: Serious Discharge Details Clinical Impression: Atrial fibrillation, CHF (congestive heart failure), COVID-19 Admit Date/Time: 08/22/21 18:58 Admit Provider: Rika Patel Attending Provider: Rika Patel Primary Care Provider: Campos Resendiz ED Provider: Kavon Butt Discharge Data Discharge Date/Time-TO BE ENTERED AT DEPARTURE: 08/22/21 20:16 Medical Decision Making 70-year-old female with multiple medical problems including history of atrial fibrillation, on Xarelto, bundle branch block per patient, bovine aortic valve replacement, recently diagnosed with Covid and tested positive on the ninth, received monoclonal antibody infusion on the , now with increased shortness of breath, dyspnea on exertion and increased heart rate. Patient does note increase swelling bilateral lower extremities from baseline. She does have chronic lymphedema right lower extremity. She has been compliant with her Xarelto. Considered ACS and arrhythmia. EKG was reviewed and interpreted by me: Please see report, tachycardic with irregular rhythm and left bundle branch block, concern for A. fib with aberrancy given stated history. No recent old prior EKGs in system to compare. Repeat EKG was reviewed interpreted by me: Please see report, A. fib with left bundle branch block. Patient did have mild hypotension, she is on beta-malissa. She was given 250 mL crystalloid bolus. BP remained stable with systolic in upper 90s to low 100s. Chest x-ray is reviewed and interpreted by radiology:IMPRESSION: 1. Increased interstitial lung markings, which could represent chronic lung scarring or acute interstitial process such as interstitial pulmonary edema or mild infection. Correlate with clinical findings. 2. No significant consolidation. Labs reviewed and troponin is normal. BNP elevated at 8600. Suspect acute CHF exacerbation. Patient reassessed remains tachycardic in the 100-120. Unclear if this is secondary to atrial fib or reactive to covid illness. I think PE is unlikely given anticoagulation and no CP. Plan to admit for optimization of A. fib and will likely benefit from mild diuresis. I am hesitant to be too aggressive with therapies given her blood pressure and I do not believe electrical cardioversion is warranted at this time. I spoke with Dr. Patel, on-call hospitalist, discussed ED presentation and course, she will admit the patient HPI General Date/Time Provider Initiated Documentation: 08/22/21 16:14 . Limitations to Documentation: no limitations . Information obtained by: patient . HPI Narrative: 70-year-old female with multiple medical problems including history of atrial fibrillation, on Xarelto, bundle branch block per patient, bovine aortic valve replacement, recently diagnosed with Covid and tested positive on the , received monoclonal antibody infusion on the , now with chief complaint of shortness of breath. Patient increased shortness of breath and dyspnea on exertion and associated increased heart rate. Patient has difficulty walking across the room secondary to shortness of breath. She denies associated chest pain. Related Data Home Medications Medication Instructions Recorded Confirmed fluoxetine [Prozac] 1 cap PO DAILY #90 cap 07/02/15 08/22/21 levothyroxine 50 mcg PO DAILY #90 tab-cap 07/02/15 08/22/21 ergocalciferol (vitamin D2) 1 tab-cap PO weekly #12 tab-cap 09/22/15 08/23/21 [Vitamin D2] atorvastatin 40 mg PO DAILY@199908/22/21 08/22/21 clopidogrel 75 mg PO DAILY 08/22/21 08/22/21 cyanocobalamin (vitamin B-12) 1,000 mcg PO DAILY 08/22/21 08/22/21 ferrous sulfate [FeroSul] 325 mg PO DAILY 08/22/21 08/22/21 furosemide 80 mg PO DAILY 08/22/21 08/22/21 isosorbide mononitrate 30 mg PO BID 08/22/21 08/22/21 losartan 25 mg PO DAILY 08/22/21 08/22/21 metformin 500 mg PO BID 08/22/21 08/22/21 metoprolol succinate See Rx Instructions .ROUTE .COMPLEX 08/22/21 08/22/21 metoprolol succinate See Rx Instructions .ROUTE .COMPLEX 08/22/21 08/22/21 metoprolol succinate See Rx Instructions .ROUTE .COMPLEX 08/22/21 08/23/21 pantoprazole 40 mg PO DAILY@199908/22/21 08/22/21 rivaroxaban [Xarelto] 20 mg PO DAILY@199908/22/21 08/22/21 Allergies Allergy/AdvReac Type Severity Reaction Status Date / Time hydrochlorothiazide Allergy Severe KILLS Unverified 08/22/21 16:30 RBC'S Iodinated Contrast Media Allergy Severe RASH; SOB Unverified 08/22/21 16:30 [Iodinated Contrast Media - Oral and] Sulfa (Sulfonamide Allergy Severe BLOOD Unverified 08/22/21 16:30 Antibiotics) DYSCRASIA pravastatin AdvReac Severe LEG CRAMPS Unverified 08/22/21 16:30 lisinopril AdvReac Intermediate COUGH Unverified 08/22/21 16:30 General Stated Complaint: SOB BHUPENDRA: 3 Review of Systems All systems reviewed & are unremarkable except as noted in HPI and below Constitutional Constitutional: Reports fatigue Cardiovascular Cardiovascular: Reports as per HPI Respiratory Respiratory: Reports as per HPI Endocrine Endocrine: Reports fatigue [facility] Active Problem List (Updated 08/23/21 @ 15:14 by Lavon Bray) Heart failure with reduced ejection fraction (Acute) Discharge planning issues (Acute) DVT prophylaxis (Acute) 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) Hypomagnesemia (Acute) Normocytic anemia (Chronic) Atrial fibrillation with rapid ventricular response (Acute) Atrial fibrillation (Chronic) CHF (congestive heart failure) (Chronic) COVID-19 (Acute) Medical History (Updated 08/23/21 @ 15:14 by Lavon Bray) (HFpEF) heart failure with preserved ejection fraction Asthma CAD (coronary artery disease) Chronic venous insufficiency Depression Diverticulosis Hypertension Hypothyroidism Leg edema, right Obstructive sleep apnea Her CPAP has been recalled Paroxysmal A-fib Peripheral neuropathy Surgical History (Updated 08/22/21 @ 23:11 by Rika Patel MD) Cholecystectomy Colonoscopy - MAC 09/01/12 10/12/13 EGD - MAC (09/01/12) Gastric Bypass (~1995) S/P cardiac cath 2019: One vessel disease (RCA) S/P TAVR (transcatheter aortic valve replacement) 2019 Tonsillectomy and adenoidectomy (~1958) Family History Mother Pneumonia Father MVA (motor vehicle accident) Brother Essential hypertension Grandfather Heart disease Myocardial infarction Grandfather Personal history of malignant neoplasm LIVER Grandmother Kidney failure Grandmother Diabetes Heart disease Social History Smoking/Tobacco Use Status: Never Smoking risk assessment performed?: Yes Drug use: Never Substance use type: does not use Exam Const General: cooperative and no acute distress HENMT Mouth: moist mucous membranes Eyes Conjunctivae: normal conjunctivae Sclera: normal sclerae Neck Neck: trachea midline and supple Thyroid: thyroid normal Resp Effort & Inspection: able to speak in complete sentences Auscultation: clear to auscultation bilaterally, no rales, no rhonchi and no wheezes Cardio Rate: tachycardic Rhythm: abnormal rhythm GI Palpation: soft, not firm, no guarding, no masses, not rigid and nontender Skin General skin exam: no rashes or lesions noted Neuro General: patient alert, patient awake, patient oriented x3 and tone normal Extrem General: no calf tenderness and edema Laterality: bilateral (Right greater than left with known lymphedema rt) Psych Appearance: grossly normal Mental Status: mental status grossly normal Speech and Movement: speech and movement normal Course Vital Signs Vital signs: Vital Signs Temperature 36.6 C 08/22/21 15:20 Pulse 121 H 08/22/21 15:20 Respiratory Rate 16 08/22/21 15:20 Blood Pressure 99/45 L 08/22/21 15:20 Pulse Oximetry 98 08/22/21 15:20 Temperature 36.6 C 08/22/21 15:20 Temperature Source Skin 08/22/21 15:20 Pulse 93 H 08/22/21 17:31 Pulse 102 H 08/22/21 17:50 Respiratory Rate 18 08/22/21 17:50 Respiratory Effort 08/22/21 16:40 Respiratory Depth Normal 08/22/21 16:40 Respiratory Pattern Normal 08/22/21 16:40 Blood Pressure 111/59 L 08/22/21 17:31 Blood Pressure Mean 71 08/22/21 17:31 Blood Pressure Position Sitting 08/22/21 15:20 Pulse Oximetry 98 08/22/21 17:50 Oxygen Delivery Method Room Air 08/22/21 15:20 Oxygen Flow Rate 0 08/22/21 15:20 Pain Level 8 08/22/21 15:20 Lab/Test Results Lab/Test Results: Laboratory Tests Range/Units 08/22/21 08/22/21 16:05 16:05 WBC (4.4-10.8) 10^3/uL 5.66 RBC (3.93-5.22) 10^6/uL 3.57 L Hgb (11.2-15.7) g/dL 10.8 L Hct (36.0-46.0) % 33.1 L MCV (80-95) fL 92.7 MCH (27.0-33.0) pg 30.3 MCHC (32.0-36.0) % 32.6 RDW (11.7-14.6) % 14.1 Plt Count (130-400) 10^3/uL 251 MPV (8.0-11.0) fL 10.5 Immature Gran % 0.9 Neutrophils % 78.4 Lymphocytes % 12.2 Monocytes % 3.9 Eosinophils % 4.4 Basophils % 0.2 Nucleated RBC % % 0 Absolute Neutrophils (1.2-6.7) 10^3/uL 4.44 Absolute Lymphocytes (1.2-3.4) 10^3/uL 0.69 L Absolute Monocytes (0.1-0.8) 10^3/uL 0.22 Absolute Eosinophils (0.0-0.7) 10^3/uL 0.25 Absolute Basophils (0.0-0.2) 10^3/uL 0.01 Sodium (136-145) mmol/L 143 Potassium (3.5-5.1) mmol/L 3.9 Chloride (98-107) mmol/L 107 Carbon Dioxide (21.0-32.0) mmol/L 24.2 Anion Gap (3-11) mmol/L 11.8 H BUN (7-18) mg/dL 31 H Creatinine (0.55-1.02) mg/dL 1.2 H Estimated GFR/1.73 m2 (mL/min/1.73m2) 44.29 Glucose (74-106) mg/dL 201 H Calcium (8.5-10.1) mg/dL 8.6 Magnesium (1.8-2.4) mg/dL 1.6 L Total Bilirubin (0.2-1.0) mg/dL 0.6 AST (15-37) U/L 19 ALT (14-59) U/L 58 Alkaline Phosphatase (46-116) U/L 129 H Troponin I (<0.06) ng/mL < 0.05 NT-Pro-B Natriuret Pep (<300) pg/mL 8660 H Total Protein (6.4-8.2) g/dL 6.3 L Albumin (3.4-5.0) g/dL 3.2 L TSH (0.36-3.74) uIU/mL 1.98
--- NOTE | 2021-08-22 18:00 | RT.EKG_ITS ---
APPROVED REPORT Exam: Resting ECG Reason for Exam: sob Patient Location: E HR:92 bpm ECG Measurements Heart Rate 92 AXIS PA [id number] P [id number] QRSd 164 QRS -52 QT 402 T 115 QTc 498 Conclusion Atrial fibrillation...V-rate 71- 82, irreg A-activity Left bundle branch block...QRSd>120, broad/notched R ST elevation secondary to IVCD...Multiple VCG criteria
[2021-08-22 20:12] LABS: Ferritin 89 ng/mL (8-252)
[2021-08-22 20:23] LABS: C-Reactive Protein 0.11 mg/dL (0.0-0.3)
[2021-08-22] MEDS: metFORMIN 500 MG TAB PO (22:09)
[2021-08-22] MEDS: METOPROLOL CR 50 MG, METOPROLOL CR 25 MG 75 MG PO (22:09)
[2021-08-22] MEDS: Rivaroxaban 10 MG TABLET 20 MG PO (22:09)
[2021-08-22] MEDS: Atorvastatin 40 MG TAB PO (22:10)
[2021-08-22] MEDS: Pantoprazole 40 MG TABCR PO (22:10)
[2021-08-22] MEDS: MAGNESIUM SULFATE 2 GM/50 ML BAG IVPB (22:10)
[2021-08-22] MEDS: Furosemide 20 MG/2 ML VIAL IVP (22:11)
[2021-08-22] MEDS: Normal Saline Flush 10 ML SYR IVP (22:13)
--- NOTE | 2021-08-22 22:33 | HPE_ITS ---
Date of service: 08/22/21 Time of Service: 22:33 Assessment and Plan Assessment and plan (1) Atrial fibrillation with rapid ventricular response: Status: Acute Assessment and plan: I suspect this is the cause of acute exacerbation of her CHF and is being triggered by COVID-19. We do need to rule out VTE, but this is less likely as the patient is already on anticoagulation. Continue home metoprolol (will slightly increase night time dose). Monitor on telemetry. R/o ACS. Diurese gently while carefully monitoring BPs. Replete magnesium. (2) Acute on chronic diastolic CHF (congestive heart failure), NYHA class 1: Status: Acute Assessment and plan: As above. Will diurese while carefully monitoring BPs. Will hold ARB in light of need for BP. Check echo. (3) COVID-19: Status: Acute Assessment and plan: The patient is not currently requiring oxygen. However, she is at higher risk of developing complications, and the threshold to initiate therapy with remdesivir and dexamethasone is low. Will monitor respiratory status. Will supplement Vitamin C/D. (4) Normocytic anemia: Status: Chronic Assessment and plan: Check anemia studies. (5) Hypomagnesemia: Status: Acute Assessment and plan: Replete. (6) Non-insulin dependent diabetes mellitus with obesity: Status: Chronic Assessment and plan: Continue home metformin. Cover with SSI. (7) DVT prophylaxis: Status: Acute Assessment and plan: On therapeutic xarelto (8) Discharge planning issues: Status: Acute Assessment and plan: Full code History of Present Illness History of Present Illness Chief Complaint: shortness of breath, especially on exertion, COVID-19 diagnosed on 08/13/21 Narrative: Ms Velasco is a 70 year old female with PMHx of CAD s/p cardiac cath in 2019 with RCA coronary artery disease, CHFpEF per echo in 2020 (EF 63%), h/o TAVR for severe in 2019, paroxysmal Afib on xarelto, BBB, NIDDM2, right renal mass, NIALL (CPAP recalled), obesity with BMI of 38, who is vaccinated against COVID-19 but did contract the illness, with first symptoms on 08/11/21 (weakness, nausea, cough productive of clear sputum), testing positive for COVID-19 on 08/13/21 and receiving monoclonal antibody therapy on 08/16/21, who presented to [facility] ED today c/o worsening SOB and, specifically, LIN with higher heart rates despite being on metoprolol at home. She also noted that breathing is worse at night when she is in bed and is now sleeping on 2 pillows rather than her usual one. She reports worsening BLE edema - her RLE is chronically edematous, but now both LEs are more swollen. She has a pulse oxymeter at home, and this has been showing that her heart rates have been going up into 110s-120s (her normal is 60s-80s) since the beginning of COVID-19 illness. The patient also endorses consuming more salt than usual since her illness due to eating more soup. Her EKG in the ED showed HR of 120s, Afib. CXR was concerning for pulmonary edema in addition to findings of COVID. She did not require supplemental oxygen at rest, but due to her clinical findings of CHF, hospitalist admission for diuresis and further ruling out of VTE was requested (the patient is anaphylactic to contrast dye). Review of Systems All systems reviewed & are unremarkable except as noted in HPI and below PFSH Active Problem List (Updated 08/23/21 @ 00:12 by Rika Patel MD) Discharge planning issues (Acute) DVT prophylaxis (Acute) 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) Hypomagnesemia (Acute) Normocytic anemia (Chronic) Acute on chronic diastolic CHF (congestive heart failure), NYHA class 1 (Acute) Atrial fibrillation with rapid ventricular response (Acute) Atrial fibrillation (Chronic) CHF (congestive heart failure) (Chronic) COVID-19 (Acute) Medical History (Updated 08/23/21 @ 00:12 by Rika Patel MD) (HFpEF) heart failure with preserved ejection fraction Asthma CAD (coronary artery disease) Chronic venous insufficiency Depression Diverticulosis Hypertension Hypothyroidism Leg edema, right Obstructive sleep apnea Her CPAP has been recalled Paroxysmal A-fib Peripheral neuropathy Surgical History (Updated 08/22/21 @ 23:11 by Rika Patel MD) Cholecystectomy Colonoscopy - MAC 09/01/12 10/12/13 EGD - MAC (09/01/12) Gastric Bypass (~1995) S/P cardiac cath 2019: One vessel disease (RCA) S/P TAVR (transcatheter aortic valve replacement) 2019 Tonsillectomy and adenoidectomy (~1959) Family History Mother Pneumonia Father MVA (motor vehicle accident) Brother Essential hypertension Grandfather Heart disease Myocardial infarction Grandfather Personal history of malignant neoplasm LIVER Grandmother Kidney failure Grandmother Diabetes Heart disease Social History Smoking/Tobacco Use Status: Never Smoking risk assessment performed?: Yes Drug use: Never Substance use type: does not use Meds Allergies and Home Medications Allergies Allergy/AdvReac Type Severity Reaction Status Date / Time hydrochlorothiazide Allergy Severe KILLS Unverified 08/22/21 16:30 RBC'S Iodinated Contrast Media Allergy Severe RASH; SOB Unverified 08/22/21 16:30 [Iodinated Contrast Media - Oral and] Sulfa (Sulfonamide Allergy Severe BLOOD Unverified 08/22/21 16:30 Antibiotics) DYSCRASIA pravastatin AdvReac Severe LEG CRAMPS Unverified 08/22/21 16:30 lisinopril AdvReac Intermediate COUGH Unverified 08/22/21 16:30 Home Medications Medication Instructions Recorded Confirmed Type fluoxetine [Prozac] 1 cap PO DAILY #90 cap 07/02/15 08/22/21 History levothyroxine 50 mcg PO DAILY #90 tab-cap 07/02/15 08/22/21 History ergocalciferol (vitamin D2) 1 tab-cap PO weekly #12 tab-cap 09/22/15 History [Vitamin D2] atorvastatin 40 mg PO DAILY@199908/22/21 08/22/21 History clopidogrel 75 mg PO DAILY 08/22/21 08/22/21 History cyanocobalamin (vitamin B-12) 1,000 mcg PO DAILY 08/22/21 08/22/21 History ferrous sulfate [FeroSul] 325 mg PO DAILY 08/22/21 08/22/21 History furosemide 80 mg PO DAILY 08/22/21 08/22/21 History isosorbide mononitrate 30 mg PO BID 08/22/21 08/22/21 History losartan 25 mg PO DAILY 08/22/21 08/22/21 History metformin 500 mg PO BID 08/22/21 08/22/21 History metoprolol succinate See Rx Instructions .ROUTE .COMPLEX 08/22/21 History metoprolol succinate See Rx Instructions .ROUTE .COMPLEX 08/22/21 08/22/21 History metoprolol succinate See Rx Instructions .ROUTE .COMPLEX 08/22/21 08/22/21 History pantoprazole 40 mg PO DAILY@199908/22/21 08/22/21 History rivaroxaban [Xarelto] 20 mg PO DAILY@199908/22/21 08/22/21 History Exam Narrative Exam Narrative: General: Very pleasant Obese female who is laying in bed at about 30 degree angle with mild dyspnea, A&Ox3, no cyanosis, able to complete sentences Neurological: A&Ox3, no focal deficits Psychiatric: Appropriate speech pattern/content Skin: Visible skin intact HEENT: Atraumatic, normocephalic, EOMI, MMM, clear oropharynx, no submandibular or cervical lymphadenopathy, no goiter or JVD Cardiovascular: irregularly irregular rhythm, no m/r/g Lungs: CTAB Gastrointestinal: soft, nontender, nondistended Genitourinary: deferred Extremities: 3+ RLE edema up to knee, 2+ LLE edema 1/[address] up to knee, pulses difficult to feel due to edema, no clubbing/cyanosis Results Imaging Additional studies: CXR: 1. Increased interstitial lung markings, which could represent chronic lung scarring or acute interstitial process such as interstitial pulmonary edema or mild infection. Correlate with clinical findings. 2. No significant consolidation. EKG #1: Afib, HR 124, LBBB (old) EKG #2: Afib, HR 92, LBBB Labs Result diagrams: 08/22/21 16:05 08/22/21 16:05 Labs: Laboratory Results - last 24 hr 08/22/21 08/22/21 08/22/21 16:05 16:05 16:05 WBC 5.66 RBC 3.57 L Hgb 10.8 L Hct 33.1 L MCV 92.7 MCH 30.3 MCHC 32.6 RDW 14.1 Plt Count 251 MPV 10.5 Immature Gran % 0.9 Neutrophils % 78.4 Lymphocytes % 12.2 Monocytes % 3.9 Eosinophils % 4.4 Basophils % 0.2 Nucleated RBC % 0 Absolute Neutrophils 4.44 Absolute Lymphocytes 0.69 L Absolute Monocytes 0.22 Absolute Eosinophils 0.25 Absolute Basophils 0.01 Sodium 143 Potassium 3.9 Chloride 107 Carbon Dioxide 24.2 Anion Gap 11.8 H BUN 31 H Creatinine 1.2 H Estimated GFR/1.73 m2 44.29 Glucose 201 H Calcium 8.6 Magnesium 1.6 L Ferritin 89 Total Bilirubin 0.6 AST 19 ALT 58 Alkaline Phosphatase 129 H Troponin I < 0.05 C-Reactive Protein 0.11 NT-Pro-B Natriuret Pep 8660 H Total Protein 6.3 L Albumin 3.2 L TSH 1.98 Last Vital Signs Temp 36.6 C 08/22/21 15:20 Pulse 85 08/22/21 18:46 Resp 20 08/22/21 18:50 BP 113/49 L 08/22/21 18:46 Pulse Ox 97 08/22/21 18:50
[2021-08-22] MEDS: Insulin Aspart 300 UNITS/3 ML PEN SC (23:07)
[2021-08-22 23:25] LABS: Troponin I < 0.05 ng/mL (<0.06)
[2021-08-23] VITALS (11 sets, daily range): BP systolic 95–131; BP diastolic 52–81; PULSE 83–117; RESP 18–20; TEMP 35.5–36.7; O2SAT 95–98
[2021-08-23] MEDS: Levothyroxine 50 MCG TAB PO (06:10)
[2021-08-23 07:10] LABS: Abs Immature Grans 0.02 10^3/uL (0.0-0.06); Absolute Basophil Count 0.02 10^3/uL (0.0-0.2); Absolute Eosinophil Count 0.22 10^3/uL (0.0-0.7); Absolute Lymphocyte Count 0.78 10^3/uL (1.2-3.4); Absolute Monocyte Count 0.28 10^3/uL (0.1-0.8); Absolute Neutrophil Count 4.27 10^3/uL (1.2-6.7); Basophils % 0.4; Eosinophils % 3.9; HCT 33.4 % (36.0-46.0); Immature Grans % 0.4; MCH 30.6 pg (27.0-33.0); MCHC 32.9 % (32.0-36.0); MPV 10.3 fL (8.0-11.0); Neutrophils % 76.3; Nucleated RBC 0 %; Platelet Count 262 10^3/uL (130-400); RBC 3.59 10^6/uL (3.93-5.22); RDW 14.1 % (11.7-14.6); RDW-SD 47.4 fL; WBC 5.59 10^3/uL (4.4-10.8)
[2021-08-23 07:41] LABS: LDH 176 U/L (81-234)
[2021-08-23 07:42] LABS: ALT 51 U/L (14-59); AST 11 U/L (15-37); Albumin 3.2 g/dL (3.4-5.0); Alkaline Phosphatase 120 U/L (46-116); Anion Gap 11.9 mmol/L (3-11); BUN 29 mg/dL (7-18); Bilirubin, Direct 0.2 mg/dL (0.0-0.2); Bilirubin, Total 0.7 mg/dL (0.2-1.0); C-Reactive Protein 0.06 mg/dL (0.0-0.3); CO2 24.1 mmol/L (21.0-32.0); Calcium 8.4 mg/dL (8.5-10.1); Chloride 105 mmol/L (98-107); Estimated GFR 54.66 (mL/min/1.73m2); Glucose 172 mg/dL (74-106); Magnesium 2.2 mg/dL (1.8-2.4); Potassium 4.1 mmol/L (3.5-5.1); Sodium 141 mmol/L (136-145); Total Protein 6.4 g/dL (6.4-8.2)
[2021-08-23 07:46] LABS: D-Dimer 438 ng/mlFEU (<500)
[2021-08-23 07:48] LABS: Troponin I < 0.05 ng/mL (<0.06)
[2021-08-23 07:49] LABS: Iron 51 ug/dL (50-170); Total Iron Binding Capacity 299 ug/dL (250-450); Transferrin Sat 17 % (15-50)
--- NOTE | 2021-08-23 08:00 | DI.US_ITS ---
APPROVED REPORT EXAM: Comprehensive 2D, Doppler, and color-flow Echocardiogram Patient Location: In-Patient Room/Bed: [address] Cleaning Professional: Renee Roa RDCS (AE) Indications: CHF, COVID, CAD, CABG, TAVR Other Information Study Quality: Fair. Technically limited study due to body habitus, inability to position patient. Conclusion Technically difficult study There is mild concentric left ventricular hypertrophy. Left ventricle is borderline dilated. Estima rudy ejection fraction is 45% with global hypokinesis The right ventricle was not well visualized but does not appear significantly enlarged The right atrium is moderately dilated. The left atrium is severely dilated Patient is status post bioprosthetic aortic valve replacement (TAVR). There is trace aortic regurgit ation. There is no significant aortic valvular gradient Severe mitral annular calcification. Thickened mitral leaflets. Moderate to severe mitral regurgita tion. Mild mitral stenosis. Normal tricuspid valve with mild regurgitation. Estimated right ventricular systolic pressure is 37 mmHg Trace pulmonic regurgitation Wall motion Left Ventricle Left ventricle is borderline dilated. Left ventricular systolic function is moderately decreased. Mil d concentric left ventricular hypertrophy. There is no ventricular septal defect visualized. LVEF is 45%. Right Ventricle Right ventricle is not well visualized. Right ventricular systolic function could not be assessed. Th e RVSP is 36.9mmHg. Atria Left atrium is severely dilated. Right atrium is moderately dilated. The interatrial septum is intact with no evidence for an atrial septal defect. Aortic Valve No hemodynamically significant valvular aortic stenosis. Trace aortic regurgitation. Bioprosthetic TA VR aortic valve is present. Mitral Valve Severe mitral annular calcification. Mitral valve leaflets are thickened. Mild mitral stenosis. Moder ate to severe mitral regurgitation. Tricuspid Valve The tricuspid valve is normal in structure. There is no tricuspid valve stenosis. Mild tricuspid regu rgitation. Pulmonic Valve Pulmonic valve is not well visualized. There is no pulmonic valvular stenosis. Trace pulmonic regurgi tation. Great Vessels The aortic root is normal in size. Ascending aorta is not well visualized. Aortic arch is not well vi sualized. The IVC collapses <50% with inspiration. Pericardium There is no pericardial effusion. 2D Dimensions IVSD d PLAX 1.12 cm F: 0.6-1.0 LV Vol A2C d MOD 115.6 mL LVPW d PLAX 1.18 cm F: 0.6 - 1.0 LV Vol A4C d MOD 126.0 mL LVID d PLAX 5.35 cm F: 3.8 - 5.2 LA vol/ BSA A2C s A-L 51.3 mL/m2 LVDs 4.10 cm F: 2.2 - 3.5 LA Area A2C s MOD 25.85 cm2 Ao Root d 2.61 cm F: 2.7 - 3.3 LV EF A4C MOD 45.5 % RA Area A4C 18.03 cm2 LV EF A2C MOD 45.2 % RA Vol/ BSA A4C s A-L 28.6 mL/m2 LV EF Biplane MOD 44.3 % LV EF Teichholz 46.0 % SV 53.68 mL LVEF (Blankenship's) 44.26 % F: 54 - 74 SV Index 29.07 mL/m2 LV Volume 93.49 mL F: 46 - 106 LV Volume Index 50.80 mL/m2 F: 29 - 61 LV Vol Biplane MOD 121.3 mL FS 23.15 % M-Mode TAPSE 1.82 cm (M/F) >1.7 LV Diastology MV E' medial 0.069 (>0.07 m/s) MV E Vmax 1.51 (0.4-1.3 m/s) LV E/e MED 21.70 (<14) MV E' lateral 0.051 (>0.1 m/s) LV E/e LAT 29.65 (<14) MV E/E' medial 21.73 MV E/E' lateral 29.67 Aortic Valve LVOT Area 2.76 cm2 AoV Area Vmax 1.99 cm2 LVOT Vmax 1.38 m/s AoV Area/ BSA (Vmax) 1.08 cm2/m2 LVOT Mean Sanchez. 1.05 m/s DIANE Mean Sanchez. 1.92 cm2 LVOT Peak Grad 7.6 mmHg DIANE Mean Sanchez. Index 1.04 cm2/m2 LVOT Mean Grad 4.8 mmHg LVOT VTI 0.196 m LVOT Diam s 1.85 cm AoV Vmax 1.92 m/s Velocity Ratio 0.71 AoV Mean Sanchez. 1.51 m/s AoV Peak Grad 14.7 mmHg LVOT SV 53.96 mL AoV Mean Grad 9.8 mmHg AoV VTI 0.300 m AoV Area VTI 1.80 cm2 AoV Area/ BSA (VTI) 0.97 cm/m2 Mitral Valve MV DT 177 (160-240 msec) MR Vmax 4.94 m/s MV PHT 51 msec MR VTI 1.330 m MV Area PHT 4.28 cm2 MR Peak Grad 97.5 mmHg MV VTI 0.493 m MR Mean Grad 68.2 mmHg MV Area VTI 1.10 (4.0-6.0 cm2) MR PISA Radius 0.42 cm MR EROA 0.08 cm2 MR Aliasing Velocity 0.35 m/s MR PISA 1.13 cm2 Pulmonary Valve PV Vmax 0.99 (0.5-1.5 m/s) RVOT Peak Gr. 1.38 mmHg PV Peak Grad 3.9 mmHg RVOT Mean Gr. 0.60 mmHg PV Mean Grad 2.2 mmHg RVOT VTI 0.094 m PV VTI 0.191 m RVOT Vmax 0.59 m/s Tricuspid Valve TR Peak Grad 28.9 mmHg TR Vmax 2.69 m/s RA Pressure 8.00 mmHg RVSP (TR) 36.9 mmHg
--- NOTE | 2021-08-23 08:00 | DI.US_ITS ---
Exam(s) US EXTREMITY VENOUS BI EXAM: US EXTREMITY VENOUS BI CLINICAL HISTORY: BLE edema, COVID-19, concern for DVT. TECHNIQUE: Bilateral lower extremity venous ultrasound performed using grayscale, color-flow, and sp ectral Doppler analysis. COMPARISON: No exams were available for comparison FINDINGS: The bilateral common femoral, femoral and popliteal veins demonstrate normal compressibility, augment ation, and color Doppler. The posterior tibial veins are patent. IMPRESSION: Right: Negative for DVT Left: Negative for DVT DATA REPOSITORY:
[2021-08-23] MEDS: Ferrous Sulfate 325 MG TAB PO (08:03)
[2021-08-23] MEDS: Clopidogrel 75 MG TAB PO (08:03)
[2021-08-23] MEDS: metFORMIN 500 MG TAB PO ×2 (08:03→17:13)
[2021-08-23] MEDS: guaiFENesin 600 MG TABCR PO ×2 (08:03→20:05)
[2021-08-23] MEDS: Ascorbic Acid 500 MG TAB 1000 MG PO ×2 (08:03→20:05)
[2021-08-23] MEDS: FLUoxetine 20 MG CAP PO (08:03)
[2021-08-23] MEDS: Cholecalciferol (Vitamin D3) 1,000 UNIT TAB 2000 UNITS PO (08:03)
[2021-08-23] MEDS: Metoprolol CR 100 MG TABCR 200 MG PO ×2 (08:03→20:05)
[2021-08-23] MEDS: Insulin Aspart 300 UNITS/3 ML PEN SC ×4 (08:04→22:18)
[2021-08-23 08:10] LABS: Procalcitonin < 0.1 ng/mL
[2021-08-23 08:18] LABS: Ferritin 86 ng/mL (8-252)
[2021-08-23] MEDS: Furosemide 40 MG/4 ML VIAL IVP ×2 (08:28→15:10)
[2021-08-23] MEDS: Normal Saline Flush 10 ML SYR IVP ×2 (08:29→15:09)
[2021-08-23] MEDS: Isosorbide Mononitrate 30 MG TABCR PO ×2 (08:29→12:10)
[2021-08-23 08:34] LABS: Vitamin B12 1850 pg/mL (193-986)
[2021-08-23 08:37] LABS: Folate > 20.0 ng/mL (8.6-20.0)
--- NOTE | 2021-08-23 13:05 | W.PM.PROGNOT ---
Date of Service Date of service: 08/23/21 Time of Service: 13:05 Assessment and Plan Assessment and plan (1) Atrial fibrillation with rapid ventricular response: Status: Acute Assessment and plan: patient's Toprol XL was increased to 200 mg bid. If this is inadequate, then I would use digoxin rather than diltiazem since she already now has declined from HFPEF to HFREF (2) Heart failure with reduced ejection fraction: Status: Acute Assessment and plan: Patient is properly graded as ACC/AHA heart failure stage C and [place] Heart Association class III borderline class IV. Patient is now experiencing orthopnea and exertional dyspnea with minimal activity. She cannot even ambulate from the bedroom to the bathroom without being breathless. I am sure that part of her acute exacerbation of her CHF is secondary to the rapid atrial fibrillation and control of her heart rate will be ramos to getting her out of heart failure. I reviewed her heart failure medications and have made changes including switching her losartan to Entresto. We have uptitrated her Toprol-XL to 200 mg twice a day to try to improve her atrial fibrillation rate control. If this is an adequate that I would add digoxin to her regimen. She has known coronary artery disease and I think it would be prudent once her atrial fibrillation rate is controlled and she is out of acute congestive heart failure that this should be reevaluated with a stress test. More likely she would not tolerate treadmill stress test and therefore I would recommend either a dobutamine stress echo which could not be obtained here at [facility] or getting an outpatient Lexiscan MPI study. I am recommending that she go on Farxiga for both diabetes control as well as control of her heart failure. We will continue IV diuretics for the next 24 to 48 hours then switch her back to oral diuretics. I would recommend switching her furosemide to torsemide for better diuresis and better oral absorption. If she is tolerating the Entresto then 1 could add spironolactone to her regimen as long as she is not having any hyperkalemia. (3) Non-insulin dependent diabetes mellitus with obesity: Status: Chronic Assessment and plan: Continue Metformin and insulin for now but I would recommend addition of an SGLT2 inhibitor such as Farxiga or Jardiance due to their effect on reduction in diabetic nephropathy and improved CV outcomes w/ respect to heart failure. (4) COVID-19: Status: Acute Assessment and plan: Patient is s/p MAB treatment and has had her third Covid-19 booster (unfortunately she did not have it until after her exposure to her son who has COVID-19). She is doing well and unless she ends up w/ hypoxemia, I do not plan to give her steroids or Remdesivir. Her current respiratory symptoms seems to be directly related to her rapid afib and her acute on chronic Chf. 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 of coronary artery disease status post cardiac cath in 2019 with RCA coronary artery disease, HFpEF per echo 2019 with ejection fraction of 63%, history of TAVR for severe aortic stenosis in 2019, paroxysmal atrial fibrillation anticoagulated with Xarelto, bundle branch block, NIDDM 2, NIALL (CPAP was recalled), obesity with a BMI 38 who has been fully vaccinated against COVID-19 but did contract illness with symptoms first occurring on 08/11/2021 and testing positive for SARS-CoV-2) on 08/13/2021 but received monoclonal antibody therapy on 08/16/2021 presented last night to [facility] emergency department with progressive dyspnea on exertion bilateral leg edema and orthopnea. Her pulse oximeter at home showed her heart rates running in the 110s to 120s she has had no fever chills or sputum production. Evaluation emergency department last night showed her to be in rapid atrial fibrillation heart rate in the 120s and chest x-ray was concerning for pulmonary edema. She was admitted last night for treatment of her acute on chronic heart failure and rapid atrial fibrillation. She is in respiratory isolation because of her recent COVID-19 illness. She usually follows with Dr. 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 Patient is feeling somewhat better today she is not having the palpitations that she had yesterday. She is not dyspneic at rest although she still requesting to sleep in the recliner. She has significant bilateral leg edema. Venous duplex was done today and ruled out for DVT. I went over her echo findings with her which shows reduction in her LV function since her last echocardiogram. She now has HFrEF with ejection fraction 45% and global hypokinesis and mild concentric LVH. RV was not well visualized but did not appear to be significantly enlarged. She has moderate to severe mitral regurgitation her TAVR seems to be intact with no significant aortic valve gradient. She has biatrial enlargement and mild pulmonary hypertension. Exam Narrative Exam Narrative: Pleasant older white female sitting up in her chair alert oriented person place time circumstance Neck is obese difficult to discern JVD Lungs with bilateral basilar rales to extending one third of the way up from the base bilaterally. No wheezes or rhonchi Heart irregularly irregular and slightly tachycardic Abdomen is obese soft and nontender Legs are edematous with 3+ pitting edema right greater than the left which is more like 2+ edema. No peripheral cyanosis. Skin is taut. Objective Last Vital Signs Temp 36.0 C L 08/23/21 08:08 Pulse 92 H 08/23/21 08:08 Resp 18 08/23/21 08:08 BP 119/65 08/23/21 08:08 Pulse Ox 97 08/23/21 08:08 Laboratory Results - last 24 hr 08/22/21 08/22/21 08/22/21 16:05 16:05 16:05 WBC 5.66 RBC 3.57 L Hgb 10.8 L Hct 33.1 L MCV 92.7 MCH 30.3 MCHC 32.6 RDW 14.1 Plt Count 251 MPV 10.5 Immature Gran % 0.9 Neutrophils % 78.4 Lymphocytes % 12.2 Monocytes % 3.9 Eosinophils % 4.4 Basophils % 0.2 Nucleated RBC % 0 Absolute Neutrophils 4.44 Absolute Lymphocytes 0.69 L Absolute Monocytes 0.22 Absolute Eosinophils 0.25 Absolute Basophils 0.01 D-Dimer Sodium 143 Potassium 3.9 Chloride 107 Carbon Dioxide 24.2 Anion Gap 11.8 H BUN 31 H Creatinine 1.2 H Estimated GFR/1.73 m2 44.29 Glucose 201 H Calcium 8.6 Magnesium 1.6 L Iron TIBC Transferrin % Sat Ferritin 89 Total Bilirubin 0.6 Conjugated Bilirubin AST 19 ALT 58 Alkaline Phosphatase 129 H Lactate Dehydrogenase Troponin I < 0.05 C-Reactive Protein 0.11 NT-Pro-B Natriuret Pep 8660 H Total Protein 6.3 L Albumin 3.2 L Vitamin B12 Folate Procalcitonin TSH 1.98 08/22/21 08/23/21 08/23/21 22:35 06:40 06:40 WBC RBC Hgb Hct MCV MCH MCHC RDW Plt Count MPV Immature Gran % Neutrophils % Lymphocytes % Monocytes % Eosinophils % Basophils % Nucleated RBC % Absolute Neutrophils Absolute Lymphocytes Absolute Monocytes Absolute Eosinophils Absolute Basophils D-Dimer Sodium 141 Potassium 4.1 Chloride 105 Carbon Dioxide 24.1 Anion Gap 11.9 H BUN 29 H Creatinine 1.0 Estimated GFR/1.73 m2 54.66 Glucose 172 H Calcium 8.4 L Magnesium 2.2 Iron TIBC Transferrin % Sat Ferritin 86 Total Bilirubin 0.7 Conjugated Bilirubin 0.2 AST 11 L ALT 51 Alkaline Phosphatase 120 H Lactate Dehydrogenase Troponin I < 0.05 < 0.05 C-Reactive Protein 0.06 NT-Pro-B Natriuret Pep Total Protein 6.4 Albumin 3.2 L Vitamin B12 Folate Procalcitonin < 0.1 TSH 08/23/21 08/23/21 08/23/21 06:40 06:40 06:40 WBC 5.59 RBC 3.59 L Hgb 11.0 L Hct 33.4 L MCV 93.0 MCH 30.6 MCHC 32.9 RDW 14.1 Plt Count 262 MPV 10.3 Immature Gran % 0.4 Neutrophils % 76.3 Lymphocytes % 14.0 Monocytes % 5.0 Eosinophils % 3.9 Basophils % 0.4 Nucleated RBC % 0 Absolute Neutrophils 4.27 Absolute Lymphocytes 0.78 L Absolute Monocytes 0.28 Absolute Eosinophils 0.22 Absolute Basophils 0.02 D-Dimer 438 Sodium Potassium Chloride Carbon Dioxide Anion Gap BUN Creatinine Estimated GFR/1.73 m2 Glucose Calcium Magnesium Iron 51 TIBC 299 Transferrin % Sat 17 Ferritin Total Bilirubin Conjugated Bilirubin AST ALT Alkaline Phosphatase Lactate Dehydrogenase Troponin I C-Reactive Protein NT-Pro-B Natriuret Pep Total Protein Albumin Vitamin B12 Folate Procalcitonin TSH 08/23/21 06:40 WBC RBC Hgb Hct MCV MCH MCHC RDW Plt Count MPV Immature Gran % Neutrophils % Lymphocytes % Monocytes % Eosinophils % Basophils % Nucleated RBC % Absolute Neutrophils Absolute Lymphocytes Absolute Monocytes Absolute Eosinophils Absolute Basophils D-Dimer Sodium Potassium Chloride Carbon Dioxide Anion Gap BUN Creatinine Estimated GFR/1.73 m2 Glucose Calcium Magnesium Iron TIBC Transferrin % Sat Ferritin Total Bilirubin Conjugated Bilirubin AST ALT Alkaline Phosphatase Lactate Dehydrogenase 176 Troponin I C-Reactive Protein NT-Pro-B Natriuret Pep Total Protein Albumin Vitamin B12 1850 H Folate > 20.0 H Procalcitonin TSH
--- NOTE | 2021-08-23 18:23 | PDOC.CMIN ---
- If Service Date Differs Date of service: 08/23/21 Time of Service: 18:23 Care Management Initial Assess REASON FOR HOSPITALIZATION:: Covid PAST MEDICAL HISTORY/PAST SURGICAL HISTORY:: (HFpEF) heart failure with preserved ejection fraction. Asthma. CAD (coronary artery disease). Chronic venous insufficiency. Depression. Diverticulosis. Hypertension. Hypothyroidism. Leg edema, right. Obstructive sleep apnea. Her CPAP has been recalled. Paroxysmal A-fib. Peripheral neuropathy. Surgical History (Updated 08/22/21 @ 23:11 by Rika Patel MD). Cholecystectomy. Colonoscopy - MAC. 09/01/12. 10/12/13. EGD - MAC (09/01/12). Gastric Bypass (~1995). S/P cardiac cath. 2019: One vessel disease (RCA). S/P TAVR (transcatheter aortic valve replacement). 2019. Tonsillectomy and adenoidectomy (~1958) PREVIOUS FUNCTIONAL STATUS/SOCIAL/FAMILY SUPPORTS:: Aby resides in [place]. 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 She has a healthy natural support system including her sons; Demarcus who resides nearby and Lavon who resides in [place]. CURRENT FUNCTIONAL STATUS:: Aby remains on Covid precautions at this time. CM continues to follow. Has patient been provided with info about the portal/API?: Yes Did the patient sign up for the portal?: Yes (Previously) CODE STATUS:: Full Code INSURANCE COVERAGE / FINANCIAL ISSUES:: [facility] PRIMARY CARE PHYSICIAN:: Campos Resendiz POTENTIAL DISCHARGE NEEDS:: Follow up appointments. PATIENT/FAMILY EDUCATION NEEDS:: Review discharge instructions, discuss Ask Me Three. ANTICIPATED BARRIERS TO DISCHARGE:: None identified. TRANSPORTATION:: Via private vehicle with family. PLAN:: Aby remains on precautions, anticipate she will discharge home with no services at this time. CM continues to follow.
[2021-08-23] MEDS: Rivaroxaban 10 MG TABLET 20 MG PO (20:04)
[2021-08-23] MEDS: Sacubitril/Valsartan 24 mg/26 mg TAB 1 EACH PO (20:04)
[2021-08-23] MEDS: Pantoprazole 40 MG TABCR PO (20:05)
[2021-08-23] MEDS: Atorvastatin 40 MG TAB PO (20:05)
[2021-08-24] VITALS (8 sets, daily range): BP systolic 102–123; BP diastolic 60–70; PULSE 86–121; RESP 16–19; TEMP 35.5–36; O2SAT 97–98
[2021-08-24] MEDS: Levothyroxine 50 MCG TAB PO (06:00)
[2021-08-24] MEDS: Insulin Aspart 300 UNITS/3 ML PEN SC ×4 (08:07→21:32)
[2021-08-24] MEDS: Ferrous Sulfate 325 MG TAB PO (08:09)
[2021-08-24] MEDS: guaiFENesin 600 MG TABCR PO ×2 (08:09→20:10)
[2021-08-24] MEDS: metFORMIN 500 MG TAB PO ×2 (08:10→17:06)
[2021-08-24] MEDS: Furosemide 40 MG/4 ML VIAL IVP (08:10)
[2021-08-24] MEDS: Clopidogrel 75 MG TAB PO (08:10)
[2021-08-24] MEDS: Sacubitril/Valsartan 24 mg/26 mg TAB 1 EACH PO ×2 (08:10→20:10)
[2021-08-24] MEDS: Cholecalciferol (Vitamin D3) 1,000 UNIT TAB 2000 UNITS PO (08:10)
[2021-08-24] MEDS: Isosorbide Mononitrate 30 MG TABCR PO ×2 (08:10→12:09)
[2021-08-24] MEDS: Ascorbic Acid 500 MG TAB 1000 MG PO ×2 (08:10→20:09)
[2021-08-24] MEDS: Normal Saline Flush 10 ML SYR IVP ×2 (08:11→17:07)
[2021-08-24] MEDS: Metoprolol CR 100 MG TABCR 200 MG PO ×2 (08:18→20:11)
[2021-08-24] MEDS: DULoxetine 30 MG CAP PO (10:19)
--- NOTE | 2021-08-24 12:10 | W.PM.PROGNOT ---
Date of Service Date of service: 08/24/21 Time of Service: 12:11 Assessment and Plan Assessment and plan (1) Atrial fibrillation with rapid ventricular response: Status: Acute Assessment and plan: patient's Toprol XL was increased to 200 mg bid. If this is inadequate, planning to use digoxin rather than diltiazem since she already now has declined from HFPEF to HFREF HR has improved but still elevates to 120's with activity such as showering. No CP reported. (2) Heart failure with reduced ejection fraction: Status: Acute Assessment and plan: Patient is properly graded as ACC/AHA heart failure stage C and [place] Heart Association class III borderline class IV. Secondary to Afib with RVR. Improvement in orthopnea and exertional dyspnea with minimal activity. I reviewed her heart failure medications and have made changes including switching her losartan to Entresto. Toprol-XL is now 200 mg twice a day to try to improve her atrial fibrillation rate control. If this is an adequate will add digoxin to her regimen. Will plan an outpt NM cardiac stress test as outpt. Farxiga for both diabetes control as well as control of her heart failure would be prudent as outpt. Will begin oral torsemide in AM. Now on Entresto; would add spironolactone to her regimen as long as she is not having any hyperkalemia from the Entresto. (3) Non-insulin dependent diabetes mellitus with obesity: Status: Chronic Assessment and plan: Continue Metformin and insulin; controlled. Recommend addition of an SGLT2 inhibitor such as Farxiga or Jardiance due to their effect on reduction in diabetic nephropathy and improved CV outcomes w/ respect to heart failure. (4) COVID-19: Status: Acute Assessment and plan: Patient is s/p MAB treatment and has had her third Covid-19 booster (unfortunately she did not have it until after her exposure to her son who has COVID-19). She is doing well and unless she ends up w/ hypoxemia, there is no plan to give her steroids or Remdesivir. Her current respiratory symptoms seems to be directly related to her rapid afib and her acute on chronic CHF Subjective Subjective Patient reports: no new complaints, feels better, tolerating a regular diet and afebrile; denies nausea and vomiting Exam Narrative Exam Narrative: Pleasant older white female sitting up in her chair alert oriented person place time circumstance Neck is obese difficult to discern JVD. FROM Lungs : soft bilateral lower lung field rales. No wheezes or rhonchi Heart irregularly irregular and slightly tachycardic; 90's to low 100's per monitor. Abdomen is obese soft and nontender Legs are edematous with 3+ pitting edema right greater than the left which is 2+ edema. No peripheral cyanosis. Skin is taut. No weeping. Objective Last Vital Signs Temp 35.8 C L 08/24/21 08:06 Pulse 103 H 08/24/21 08:06 Resp 16 08/24/21 08:06 BP 106/62 08/24/21 08:06 Pulse Ox 97 08/24/21 08:06
[2021-08-24] MEDS: Pantoprazole 40 MG TABCR PO (20:10)
[2021-08-24] MEDS: Atorvastatin 40 MG TAB PO (20:11)
[2021-08-24] MEDS: Rivaroxaban 10 MG TABLET 20 MG PO (20:11)
[2021-08-25] VITALS (13 sets, daily range): BP systolic 105–118; BP diastolic 53–68; PULSE 75–97; RESP 16–20; TEMP 35.1–36.6; O2SAT 95–97
[2021-08-25] MEDS: Levothyroxine 50 MCG TAB PO (05:06)
[2021-08-25] MEDS: Insulin Aspart 300 UNITS/3 ML PEN SC ×4 (08:25→22:13)
[2021-08-25] MEDS: Ascorbic Acid 500 MG TAB 1000 MG PO ×2 (08:26→19:58)
[2021-08-25] MEDS: Cholecalciferol (Vitamin D3) 1,000 UNIT TAB 2000 UNITS PO (08:26)
[2021-08-25] MEDS: Clopidogrel 75 MG TAB PO (08:26)
[2021-08-25] MEDS: guaiFENesin 600 MG TABCR PO ×2 (08:27→19:58)
[2021-08-25] MEDS: metFORMIN 500 MG TAB PO ×2 (08:27→17:22)
[2021-08-25] MEDS: DULoxetine 30 MG CAP PO (08:27)
[2021-08-25] MEDS: Ferrous Sulfate 325 MG TAB PO (08:27)
[2021-08-25] MEDS: Sacubitril/Valsartan 24 mg/26 mg TAB 1 EACH PO ×2 (08:27→19:57)
[2021-08-25] MEDS: Metoprolol CR 100 MG TABCR 200 MG PO ×2 (08:27→19:59)
[2021-08-25] MEDS: Torsemide 20 MG TAB PO (08:28)
[2021-08-25] MEDS: Isosorbide Mononitrate 30 MG TABCR PO ×2 (08:36→12:11)
--- NOTE | 2021-08-25 14:45 | PGE_ITS ---
Date of Service Date of service: 08/25/21 Time of Service: 14:45 Assessment and Plan Assessment and plan (1) Atrial fibrillation with rapid ventricular response: Status: Acute Assessment and plan: patient's Toprol XL was increased to 200 mg bid. If this is inadequate, planning to use digoxin rather than diltiazem since she already now has declined from HFPEF to HFREF HR has improved, 70-80's most of last PM, but still elevates to 110's with activity/ambulating in room. No CP reported but does feel palpitations when heart rate accelerates. Adding Digoxin; loading with po dosing of 0.5 initially, then 0.25mg appx 8 hours later, then 0.25mg 8 hours after the 2nd dose. Monitor for adverse effects. On telemetry. (2) Heart failure with reduced ejection fraction: Status: Acute Assessment and plan: Patient is properly graded as ACC/AHA heart failure stage C and [place] Heart Association class III borderline class IV. Secondary to Afib with RVR. Improvement in orthopnea and exertional dyspnea with minimal activity. I reviewed her heart failure medications and have made changes including switching her losartan to Entresto. Toprol-XL is now 200 mg twice a day to try to improve her atrial fibrillation rate control. Will plan an outpt NM cardiac stress test as outpt. Farxiga for both diabetes control as well as control of her heart failure would be prudent as outpt. Will begin oral torsemide in AM. Now on Entresto; would add spironolactone to her regimen as long as she is not having any hyperkalemia from the Entresto. (3) Non-insulin dependent diabetes mellitus with obesity: Status: Chronic Assessment and plan: Continue Metformin and insulin; controlled. Recommend addition of an SGLT2 inhibitor such as Farxiga or Jardiance due to their effect on reduction in diabetic nephropathy and improved CV outcomes w/ respect to heart failure. (4) COVID-19: Status: Acute Assessment and plan: Patient is s/p MAB treatment and has had her third Covid-19 booster (unfortunately she did not have it until after her exposure to her son who has COVID-19). She is doing well and unless she ends up w/ hypoxemia, there is no plan to give her steroids or Remdesivir. Her current respiratory symptoms seems to be directly related to her rapid afib and her acute on chronic CHF Subjective Subjective Patient reports: no new complaints, feels better, tolerating a regular diet and afebrile; denies nausea, vomiting and shortness of breath Interval history since last seen: Feels palpitations when stands or ambulates in room. Exam Narrative Exam Narrative: Pleasant older white female sitting up in her chair alert oriented person place time circumstance Neck is obese difficult to discern JVD. FROM Lungs : soft bilateral lower lung field rales. No wheezes or rhonchi Heart irregularly irregular and slightly tachycardic; 90's to low 100's per monitor. Abdomen is obese soft and nontender Legs are edematous with 3+ pitting edema right greater than the left which is 2+ edema. No peripheral cyanosis. Skin is taut. No weeping. Objective Last Vital Signs Temp 36 C L 08/25/21 12:13 Pulse 75 08/25/21 12:13 Resp 16 08/25/21 12:13 BP 110/60 08/25/21 12:13 Pulse Ox 96 08/25/21 12:13
[2021-08-25] MEDS: Digoxin 0.25 MG TAB 0.5 MG PO (15:40)
[2021-08-25] MEDS: Normal Saline Flush 10 ML SYR IVP (15:50)
[2021-08-25] MEDS: Rivaroxaban 10 MG TABLET 20 MG PO (19:56)
[2021-08-25] MEDS: Atorvastatin 40 MG TAB PO (19:58)
[2021-08-25] MEDS: Pantoprazole 40 MG TABCR PO (19:59)
[2021-08-25] MEDS: Digoxin 0.25 MG TAB PO (22:06)
[2021-08-26 02:51] LABS: Vitamin D 25 Total 28.7 ng/mL (30-100)
[2021-08-26 05:30] VITALS: BP 103/54; PULSE 76; RESP 20; TEMP 36.4; O2SAT 95
[2021-08-26 06:02] VITALS: PULSE 76
[2021-08-26] MEDS: Levothyroxine 50 MCG TAB PO (06:02)
[2021-08-26] MEDS: Digoxin 0.25 MG TAB PO (06:02)
[2021-08-26] MEDS: Normal Saline Flush 10 ML SYR IVP ×2 (06:03→08:02)
[2021-08-26 07:00] VITALS: PULSE 76
[2021-08-26] MEDS: metFORMIN 500 MG TAB PO (07:59)
[2021-08-26] MEDS: DULoxetine 30 MG CAP PO (07:59)
[2021-08-26] MEDS: Clopidogrel 75 MG TAB PO (07:59)
[2021-08-26] MEDS: Sacubitril/Valsartan 24 mg/26 mg TAB 1 EACH PO (08:00)
[2021-08-26] MEDS: Metoprolol CR 100 MG TABCR 200 MG PO (08:00)
[2021-08-26] MEDS: Cholecalciferol (Vitamin D3) 1,000 UNIT TAB 2000 UNITS PO (08:00)
[2021-08-26] MEDS: Ascorbic Acid 500 MG TAB 1000 MG PO (08:00)
[2021-08-26] MEDS: Ferrous Sulfate 325 MG TAB PO (08:00)
[2021-08-26] MEDS: guaiFENesin 600 MG TABCR PO (08:01)
[2021-08-26] MEDS: Torsemide 20 MG TAB PO (08:01)
[2021-08-26] MEDS: Insulin Aspart 300 UNITS/3 ML PEN SC ×2 (08:01→12:03)
[2021-08-26 08:18] VITALS: BP 105/62; PULSE 78; RESP 19; TEMP 35.5; O2SAT 95
--- NOTE | 2021-08-26 08:36 | PDOC.CMPRO ---
- If Service Date Differs Date of service: 08/26/21 Time of Service: 08:36 Care Management Progress Note S/O: A: Aby is a 70 year old woman admitted with Afib and Covid on 08/22/21 P:Aby will likely be discharged home with no new services. She will follow up with her PCP and plan of care and transport with family. CM will continue to support Aby and her discharge planning needs.
[2021-08-26] MEDS: Isosorbide Mononitrate 30 MG TABCR PO ×2 (09:21→12:03)
--- NOTE | 2021-08-26 10:00 | DSE_ITS ---
Date of service: 08/26/21 Time of Service: 10:01 DS: Diagnosis Discharge Diagnosis (1) Atrial fibrillation with rapid ventricular response: Status: Acute (2) Heart failure with reduced ejection fraction: Status: Acute (3) Non-insulin dependent diabetes mellitus with obesity: Status: Chronic (4) COVID-19: Status: Acute Discharge Plan Disposition Condition: Good Discharge Details Reason For Visit: Afib with rapid ventricular rate, CHF, COVID +. Admit Date/Time: 08/24/21 16:50 Admit Provider: Rika Patel Attending Provider: Rika Patel Primary Care Provider: Campos Resendiz Hospital Course Hospital Course: Ms Velasco is a 70 year old female with PMHx of CAD s/p cardiac cath in 2019 with RCA coronary artery disease, CHFpEF per echo in 2020 (EF 63%), h/o TAVR for severe in 2019, paroxysmal Afib on xarelto, BBB, NIDDM2, right renal mass, NIALL (CPAP recalled), obesity with BMI of 38, who is vaccinated against COVID-19 but did contract the illness, with first symptoms on 08/11/21 (weakness, nausea, cough productive of clear sputum), testing positive for COVID-19 on 08/13/21 and receiving monoclonal antibody therapy on 08/16/21, who presented to [facility] ED today c/o worsening SOB and, specifically, LIN with higher heart rates despite being on metoprolol at home. She also noted that breathing is worse at night when she is in bed and is now sleeping on 2 pillows rather than her usual one. She reports worsening BLE edema - her RLE is chronically edematous, but now both LEs are more swollen. She has a pulse oximeter at home, and this has been showing that her heart rates have been going up into 110s-120s (her normal is 60s-80s) since the beginning of COVID-19 illness. The patient also endorses consuming more salt than usual since her illness due to eating more soup. Her EKG in the ED showed HR of 120s, Afib. CXR was concerning for pulmonary edema in addition to findings of COVID. She did not require supplemental oxygen at rest, but due to her clinical findings of CHF, hospitalist admission for diuresis and further ruling out of VTE was requested (the patient is anaphylactic to contrast dye). She was diuresed, her BB was continued and subsequently increased to 200mg BID. She was supplemented with Vit C and D but remdesivir and dexamethasone not initiated but were considered should she decline from a COVID standpoint. Her ACC/AHA heart failure stage was graded as a C and NYHA class III borderline class IV. She was changed from Losartan to Entresto. It is suggested she initiate Farxiga for her CHF as well as DM (as an outpt once insurance coverage evaluated). Also, as an outpt, consideration for initiating spironolactone should be given. Her HR continued to be elevated, though improved, particularly with activity. She was given a loading oral dosing regimen of digoxin and her HR improved significantly. She will continue digoxin 0.125mg daily and have her digoxin level checked with PCP Encouraged to watch her Na intake and limit it to 2 grams or less. Follow up with PCP in 1 week. Home Meds and New Rx's Prescriptions: New Entresto 24-26 mg Tablet 1 tab PO BID Qty: 60 RF: 0 torsemide 20 mg Tablet 20 mg PO DAILY Qty: 30 RF: 0 metoprolol succinate 200 mg tablet extended release 24 hr 200 mg PO BID Qty: 60 RF: 0 digoxin [Digox] 125 mcg (0.125 mg) tablet 125 mcg PO DAILY Qty: 30 RF: 0 Continued levothyroxine 50 MCG tablet 50 mcg PO DAILY Qty: 90 RF: 12 ergocalciferol (vitamin D2) [Vitamin D2] 50,000 UNIT capsule 1 tab-cap PO weekly Qty: 12 RF: 12 atorvastatin 40 mg tablet 40 mg PO DAILY@1999 RF: 0 metformin 500 mg tablet 500 mg PO BID RF: 0 isosorbide mononitrate 30 mg tablet extended release 24 hr 30 mg PO BID RF: 0 clopidogrel 75 mg tablet 75 mg PO DAILY RF: 0 ferrous sulfate [FeroSul] 325 mg (65 mg iron) tablet 325 mg PO DAILY RF: 0 Xarelto 20 mg tablet 20 mg PO DAILY@1999 RF: 0 pantoprazole 40 mg Tablet,Delayed Release (Dr/Ec) 40 mg PO DAILY@1999 RF: 0 cyanocobalamin (vitamin B-12) 1,000 mcg Tablet 1,000 mcg PO DAILY RF: 0 duloxetine [Cymbalta] 30 mg Capsule,Delayed Release(Dr/Ec) 30 mg PO DAILY RF: 0 Discontinued furosemide 40 mg tablet 80 mg PO DAILY RF: 0 losartan 25 mg tablet 25 mg PO DAILY RF: 0 metoprolol succinate 50 mg tablet extended release 24 hr See Rx Instructions .ROUTE .COMPLEX RF: 0 metoprolol succinate 100 mg tablet extended release 24 hr See Rx Instructions .ROUTE .COMPLEX RF: 0 metoprolol succinate 25 mg Tablet Extended Release 24 Hr See Rx Instructions .ROUTE .COMPLEX RF: 0 Discharge Instructions Instructions: A-fib (Atrial Fibrillation) (DC), How To Wash Your Hands (DC), COVID-19 (Coronavirus Disease 2019) (DC) Stand Alone Forms: Nursing Discharge Form Referrals: Campos Resendiz MD [Primary Care Provider] - 08/28/21 8:30 am Activity:: Activity as Tolerated Equipment/Supplies:: No Equipment Needed Diet:: resume usual diet Discharge Data Discharge Date/Time-TO BE ENTERED AT DEPARTURE: 08/26/21 13:07 DS: Summary Time Spent with Patient providing and/or coordinating discharge services: Greater than 30 minutes Status at Discharge Functional status at discharge: independent ambulation Overall status at discharge: patient is progressing back to baseline Mental Status: mental status grossly normal Speech and Movement: speech and movement normal Mood: congruent mood Affect: normal affect Exam Narrative Exam Narrative: Pleasant older white female sitting up in her chair alert oriented person place time circumstance Neck is obese difficult to discern JVD. FROM Lungs : soft bilateral lower lung field rales. No wheezes or rhonchi Heart irregularly irregular and slightly tachycardic; 90's to low 100's per monitor. Abdomen is obese soft and nontender Legs are edematous with 3+ pitting edema right greater than the left which is 2+ edema. No peripheral cyanosis. No weeping. Psych Mental Status: mental status grossly normal Speech and Movement: speech and movement normal Mood: congruent mood Affect: normal affect DS: Data Vitals/I&O Vitals and I&O: Vital Signs Temperature 35.5 C L 08/26/21 08:18 Temperature Source Tympanic 08/26/21 08:18 Pulse 78 08/26/21 08:18 Pulse Rhythm Irregular 08/26/21 08:03 Pulse 119 H 08/22/21 18:50 Respiratory Rate 19 08/26/21 08:18 Respiratory Effort Non-Labored 08/26/21 08:03 Respiratory Depth Normal 08/26/21 08:03 Respiratory Pattern Normal 08/26/21 08:03 Blood Pressure 105/62 08/26/21 08:18 Blood Pressure Mean 57 08/22/21 18:46 Blood Pressure Position Sitting 08/22/21 15:20 Pulse Oximetry 95 08/26/21 08:18 Oxygen Delivery Method Room Air 08/26/21 08:18 Oxygen Flow Rate 0 08/26/21 08:18 Pain Level 0 08/26/21 08:18 Intake & Output 08/25/21 08/25/21 08/26/21 11:59 23:59 11:59 Intake Total 840 / 840 350 / 350 Output Total 400 / 1700 1300 / 1700 700 / 700 Balance -400 / -860 -460 / -860 -350 / -350 Weight 89.04 kg Intake: IV Oral 820 / 820 340 / 340 Output: Urine 400 / 1700 1300 / 1700 700 / 700 Other: Urine Color Yellow Yellow Yellow Urine Appearance Clear Clear Urine Odor None Comment per pt report Stool Occult Blood Negative Stool Size Moderate Large Stool Characteristics Formed Soft Soft Formed Formed Brown Brown Voiding Methods Toilet Toilet Toilet Data Completed and Pending Labs on day of discharge: Labs from last 24 hours 08/26/21 08/23/21 07:42 06:40 25-OH Vitamin D Total 28.7 L Digoxin 3.30 H* PFSH Active Problem List Heart failure with reduced ejection fraction (Acute) Discharge planning issues (Acute) DVT prophylaxis (Acute) 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) Hypomagnesemia (Acute) Normocytic anemia (Chronic) Atrial fibrillation with rapid ventricular response (Acute) Atrial fibrillation (Chronic) CHF (congestive heart failure) (Chronic) COVID-19 (Acute) Medical History (HFpEF) heart failure with preserved ejection fraction Asthma CAD (coronary artery disease) Chronic venous insufficiency Depression Diverticulosis Hypertension Hypothyroidism Leg edema, right Obstructive sleep apnea Her CPAP has been recalled Paroxysmal A-fib Peripheral neuropathy Surgical History Cholecystectomy Colonoscopy - MAC 09/01/12 10/12/13 EGD - MAC (09/01/12) Gastric Bypass (~1995) S/P cardiac cath 2019: One vessel disease (RCA) S/P TAVR (transcatheter aortic valve replacement) 2019 Tonsillectomy and adenoidectomy (~1959) Family History Mother Pneumonia Father MVA (motor vehicle accident) Brother Essential hypertension Grandfather Heart disease Myocardial infarction Grandfather Personal history of malignant neoplasm LIVER Grandmother Kidney failure Grandmother Diabetes Heart disease Social History Smoking/Tobacco Use Status: Never Smoking risk assessment performed?: Yes Drug use: Never Substance use type: does not use
[2021-08-26 12:03] VITALS: BP 99/55; PULSE 64; RESP 18; O2SAT 97
[2021-08-26 13:00] VITALS: PULSE 82
--- NOTE | 2021-08-26 13:38 | PDOC.CMDIS ---
- If Service Date Differs Date of service: 08/26/21 Time of Service: 13:38 LACE Index Scoring Tool - Questions: Length of Stay (in days): 4 - 6 Acuity (Admit via E.D.?): Yes Comorbidities: Diabetes w/o Complication, Congestive Heart Failure E.D. Visits: 1 - Answers: Total Score: 11 Risk of Readmission: High Risk Care Management Discharge Reason for Hospitalization: Covid Discharge Plan: Aby will be discharged home with no new services. She will follow up with her PCP and plan of care and transport with family. Patient/Family Education Needs: Review discharge instructions, medicatrions, precautions, limitations, and follow up plan, discuss Ask Me Three.
== END 2021-08-26 13:07 | disposition home or self-care (01) | DRG 308 ==
LOC: ER 18:42 → MS 08-23 08:23
PROVIDERS: Family Medicine; Admitting Provider Internal Medicine; Emergency Provider Student in an Organized Health Care Education/Training Program; PCP Internal Medicine Interventional Cardiology; Visit Provider Internal Medicine
DX: I48.0 Paroxysmal atrial fibrillation (principal); U07.1 COVID-19; I50.23 Acute on chronic systolic (congestive) heart failure; E83.42 Hypomagnesemia; D64.9 Anemia, unspecified; E66.9 Obesity, unspecified; Z79.84 Long term (current) use of oral hypoglycemic drugs; Z68.38 Body mass index [BMI] 38.0-38.9, adult; I25.10 Atherosclerotic heart disease of native coronary artery without angina pectoris; Z79.01 Long term (current) use of anticoagulants; Z95.2 Presence of prosthetic heart valve; G47.33 Obstructive sleep apnea (adult) (pediatric); J45.909 Unspecified asthma, uncomplicated; I87.8 Other specified disorders of veins; F32.A Depression, unspecified; K57.90 Diverticulosis of intestine, part unspecified, without perforation or abscess without bleeding; I11.0 Hypertensive heart disease with heart failure; E03.9 Hypothyroidism, unspecified; E11.42 Type 2 diabetes mellitus with diabetic polyneuropathy
CPT/HCPCS: 36415; 80048; 80053; 80076; 82306; 84145; 93005; 93306; 99285; 71045; 80162; 82607; 82728; 82746; 83540; 83550; 83615; 83735; 83880; 84443; 84484; 85025; 85379; 86140; 93010; 93970; 99220; 99232; 99233; 99239; J1940; J1941

== ENCOUNTER 2022-12-05 07:20 | Emergency (ER) | payer MEDICARE, SELFPAY ==
[2022-12-05 07:34] VITALS: BP 112/51; PULSE 70; RESP 18; TEMP 36.8; O2SAT 100
[2022-12-05 08:46] LABS: Abs Immature Grans 0.03 10^3/uL (0.0-0.06); Absolute Basophil Count 0.01 10^3/uL (0.0-0.2); Absolute Eosinophil Count 0.12 10^3/uL (0.0-0.7); Absolute Lymphocyte Count 0.45 10^3/uL (1.2-3.4); Absolute Neutrophil Count 4.98 10^3/uL (1.2-6.7); Basophils % 0.2; HCT 32.3 % (36.0-46.0); Immature Grans % 0.5; Lymphocytes % 7.5; MCH 28.9 pg (27.0-33.0); MCV 93 fL (80-95); MPV 9.6 fL (8.0-11.0); Monocytes % 6.7; Neutrophils % 83.1; Platelet Count 192 10^3/uL (130-400); RBC 3.46 10^6/uL (3.93-5.22); RDW 16.1 % (11.7-14.6); RDW-SD 54.9 fL; WBC 5.99 10^3/uL (4.4-10.8)
--- NOTE | 2022-12-05 08:47 | ED.GENADUL_ITS ---
Discharge Plan Disposition Patient Disposition: Home Condition: Improving Discharge Details Chief Complaint: Cellulitis Clinical Impression: Cellulitis of face, Dental infection Primary Care Provider: Campos Resendiz ED Provider: Wyatt Castle Home Meds and New Rx's Prescriptions: No Action levothyroxine 50 MCG tablet 50 mcg PO DAILY Qty: 90 ergocalciferol (vitamin D2) [Vitamin D2] 50,000 UNIT capsule 1 tab-cap PO weekly Qty: 12 atorvastatin 40 mg tablet 40 mg PO DAILY@1999 metformin 500 mg tablet 500 mg PO BID Xarelto 20 mg tablet 15 mg PO DAILY@1999 pantoprazole 40 mg Tablet,Delayed Release (Dr/Ec) 40 mg PO DAILY@1999 cyanocobalamin (vitamin B-12) 1,000 mcg Tablet 1,000 mcg PO DAILY duloxetine [Cymbalta] 30 mg Capsule,Delayed Release(Dr/Ec) 30 mg PO DAILY aspirin 81 mg Capsule,Delayed Release(Dr/Ec) 81 mg PO DAILY amoxicillin-pot clavulanate 875-125 mg tablet 1 tab PO BID Patient Comments: TAKE 1 TABLET BY MOUTH EVERY 12 HOURS FOR 10 DAYS Rx Instructions: started 12/04/22. Jardiance 10 mg tablet 10 mg PO DAILY torsemide 20 mg tablet 20 mg PO DAILY PRN Entresto 24-26 mg tablet 0.5 tab PO BID Discharge Instructions Instructions: Cellulitis (ED) Additional Instructions: Please follow-up with your dentist on Thursday. Please return to the emergency department for any worsening symptoms. Continue to take your antibiotics as an outpatient. Medical Decision Making 72-year-old female history of diabetes, CHF, A-fib, valvular heart disease status post TAVR presents after being diagnosed with a dental infection, has taken 2 doses of Augmentin at home, persistent facial swelling right maxillary region and upper lip, no submandibular or submental or sublingual involvement, oropharynx is patent tolerating secretions normal voice. Afebrile nontoxic. Given medical comorbidities and level of facial swelling will obtain basic labs will administer IV dose of ampicillin-sulbactam, as well as dexamethasone and Toradol for anti-inflammatory purposes. Likely dental infection with concomitant mild facial cellulitis. Given nontoxic state and examination at this time will not obtain imaging. If patient tolerates medication and improves here in department will have patient continue with Augmentin as an outpatient, as this does not seem to be a medication failure as she has only had 2 doses. Home care instructions and return precautions. Patient will see her dentist on Thursday 10: 04 patient resting comfortably no acute distress. Endorses improved symptoms in left face. Patient to follow-up with dentist on Thursday. We will continue with her Augmentin as an outpatient. HPI General Date/Time Provider Initiated Documentation: 12/05/22 08:04 . HPI Narrative: 72-year-old female history of A-fib, valvular dysfunction status post TAVR, CHF, diabetes, presents with several days of left facial swelling and dental discomfort, was started on Augmentin and has taken 2 doses of this antibiotic has noted some facial swelling and lip swelling. No trouble swallowing no change in speech no fevers no chills. Has an appointment on Thursday to see a dentist. Related Data Home Medications Medication Instructions Recorded Confirmed levothyroxine 50 mcg tablet 50 mcg PO DAILY #90 tab-caps 07/02/15 12/05/22 ergocalciferol (vitamin D2) 1,250 1 tab-cap PO weekly #12 tab-caps 09/22/15 12/05/22 mcg (50,000 unit) capsule (Vitamin D2) atorvastatin 40 mg tablet 40 mg PO DAILY@199908/22/21 12/05/22 cyanocobalamin (vitamin B-12) 1,000 mcg PO DAILY 08/22/21 12/05/22 1,000 mcg tablet metformin 500 mg tablet 500 mg PO BID 08/22/21 12/05/22 pantoprazole 40 mg tablet,delayed 40 mg PO DAILY@199908/22/21 12/05/22 release rivaroxaban 20 mg tablet (Xarelto) 15 mg PO DAILY@199908/22/21 12/05/22 duloxetine 30 mg capsule,delayed 30 mg PO DAILY 08/24/21 12/05/22 release (Cymbalta) amoxicillin 875 mg-potassium 1 tab PO BID 12/05/22 12/05/22 clavulanate 125 mg tablet aspirin 81 mg capsule,delayed 81 mg PO DAILY 12/05/22 12/05/22 release empagliflozin 10 mg tablet 10 mg PO DAILY 12/05/22 12/05/22 (Jardiance) sacubitril 24 mg-valsartan 26 mg 0.5 tab PO BID 12/05/22 12/05/22 tablet (Entresto) torsemide 20 mg tablet 20 mg PO DAILY PRN 12/05/22 12/05/22 Allergies Allergy/AdvReac Type Severity Reaction Status Date / Time hydrochlorothiazide Allergy Severe KILLS Unverified 12/05/22 07:41 RBC'S Iodinated Contrast Media Allergy Severe RASH; SOB Unverified 12/05/22 07:41 [Iodinated Contrast Media - Oral and] Sulfa (Sulfonamide Allergy Severe BLOOD Unverified 12/05/22 07:41 Antibiotics) DYSCRASIA pravastatin AdvReac Severe LEG CRAMPS Unverified 12/05/22 07:41 lisinopril AdvReac Intermediate COUGH Unverified 12/05/22 07:41 General Stated Complaint: Cellulitis BHUPENDRA: 3 Review of Systems Narrative: Review of Systems Constitutional: negative Eyes: negative ENT: Facial pain, dental pain Cardiovascular: negative Respiratory: negative Gastrointestinal: negative : negative Musculoskeletal: negative Skin: negative Neurologic: negative Psych: negative PFSH All Active Problems (Updated 12/05/22 @ 10:06 by Wyatt Castle MD) Cellulitis of face (Acute) Dental infection (Acute) Heart failure with reduced ejection fraction (Acute) Discharge planning issues (Acute) DVT prophylaxis (Acute) 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) Hypomagnesemia (Acute) Normocytic anemia (Chronic) Atrial fibrillation with rapid ventricular response (Acute) Atrial fibrillation (Chronic) CHF (congestive heart failure) (Chronic) COVID-19 (Acute) Active Problem List Heart failure with reduced ejection fraction (Acute) Discharge planning issues (Acute) DVT prophylaxis (Acute) 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) Hypomagnesemia (Acute) Normocytic anemia (Chronic) Atrial fibrillation with rapid ventricular response (Acute) Atrial fibrillation (Chronic) CHF (congestive heart failure) (Chronic) COVID-19 (Acute) Medical History (HFpEF) heart failure with preserved ejection fraction Asthma CAD (coronary artery disease) Chronic venous insufficiency Depression Diverticulosis Hypertension Hypothyroidism Leg edema, right Obstructive sleep apnea Her CPAP has been recalled Paroxysmal A-fib Peripheral neuropathy Surgical History Cholecystectomy Colonoscopy - MAC 09/01/12 10/12/13 EGD - MAC (09/01/12) Gastric Bypass (~1995) S/P cardiac cath 2019: One vessel disease (RCA) S/P TAVR (transcatheter aortic valve replacement) 2019 Tonsillectomy and adenoidectomy (~1959) Family History Mother Pneumonia Father MVA (motor vehicle accident) Brother Essential hypertension Grandfather Heart disease Myocardial infarction Grandfather Personal history of malignant neoplasm LIVER Grandmother Kidney failure Grandmother Diabetes Heart disease Social History Smoking/Tobacco Use Status: Never Smoking risk assessment performed?: Yes Alcohol Intake: current Alcohol Intake frequency: holidays/special occasions only Drug use: Never Substance use type: does not use Do you feel safe at home: Yes Do you feel safe in your relationship?: Yes Exam Narrative Exam Narrative: Physical Examination General: alert, awake, cooperative, resting comfortably, no acute distress HEENT: normocephalic, atraumatic; induration to left maxillary region as well as upper lip; oropharynx patent, tolerating secretions, normal voice no submandibular or sublingual or or submental induration; PERRL, EOM intact, conjunctiva normal; no nasal discharge; moist mucous membranes, oral and pharyngeal mucosa normal, tolerating secretions Neck: supple, trachea midline; full ROM Chest: normal to inspection Respiratory: normal respiratory effort, speaking in full sentences, clear to auscultation, no wheezing, rales or rhonchi Cardiac: regular rate, regular rhythm, S1S2 intact, no murmurs rubs or gallops GI: abdomen soft, non-tender, non-distended; no palpable mass or hepatosplenomegaly Skin: no lesions, rashes or trauma appreciated Neuro: AAOx3, normal speech, moving all extremities Psych: Appropriate mood and affect Course Vital Signs Vital signs: Vital Signs Temperature 36.8 C 12/05/22 07:34 Pulse 70 12/05/22 07:34 Respiratory Rate 18 12/05/22 07:34 Blood Pressure 112/51 L 12/05/22 07:34 Pulse Oximetry 100 12/05/22 07:34 Temperature 36.8 C 12/05/22 07:34 Temperature Source Oral 12/05/22 07:34 Pulse 70 12/05/22 07:34 Respiratory Rate 18 12/05/22 07:34 Respiratory Effort Normal, Non-Labored 12/05/22 07:38 Blood Pressure 112/51 L 12/05/22 07:34 Blood Pressure Position Sitting 12/05/22 07:34 Pulse Oximetry 100 12/05/22 07:34 Oxygen Delivery Method Room Air 12/05/22 07:34 Oxygen Flow Rate 0 12/05/22 07:34 Pain Level 5 12/05/22 07:34 Lab/Test Results Lab/Test Results: Laboratory Tests Range/Units 12/05/22 08:35 WBC (4.4-10.8) 10^3/uL 5.99 RBC (3.93-5.22) 10^6/uL 3.46 L Hgb (11.2-15.7) g/dL 10.0 L Hct (36.0-46.0) % 32.3 L MCV (80-95) fL 93 MCH (27.0-33.0) pg 28.9 MCHC (32.0-36.0) % 31.0 L RDW (11.7-14.6) % 16.1 H Plt Count (130-400) 10^3/uL 192 MPV (8.0-11.0) fL 9.6 Immature Gran % 0.5 Neutrophils % 83.1 Lymphocytes % 7.5 Monocytes % 6.7 Eosinophils % 2.0 Basophils % 0.2 Nucleated RBC % (0.0-0.3) % 0.0 Absolute Neutrophils (1.2-6.7) 10^3/uL 4.98 Absolute Lymphocytes (1.2-3.4) 10^3/uL 0.45 L Absolute Monocytes (0.1-0.8) 10^3/uL 0.40 Absolute Eosinophils (0.0-0.7) 10^3/uL 0.12 Absolute Basophils (0.0-0.2) 10^3/uL 0.01
[2022-12-05] MEDS: Dexamethasone 10 MG/ML VIAL IVP (08:50)
[2022-12-05] MEDS: Normal Saline 500 ML 1000 ML IV (08:50)
[2022-12-05] MEDS: AMPICILLIN/SULBACTAM 3 GM in Normal Saline 100 ML IVPB (08:50)
[2022-12-05] MEDS: Ketorolac 15 MG/ML VIAL IVP (08:51)
[2022-12-05 09:10] LABS: ALT 12 U/L (14-59); AST 6 U/L (15-37); Alkaline Phosphatase 74 U/L (46-116); Anion Gap 12.3 mmol/L (3-11); BUN 33 mg/dL (7-18); Bilirubin, Total 0.5 mg/dL (0.2-1.0); CO2 21.7 mmol/L (21.0-32.0); CREATININE 1.6 mg/dL (0.55-1.02); Calcium 8.6 mg/dL (8.5-10.1); Chloride 105 mmol/L (98-107); Estimated GFR 33.84 (mL/min/1.73m2); Glucose 134 mg/dL (74-106); Potassium 4.8 mmol/L (3.5-5.1); Sodium 139 mmol/L (136-145); Total Protein 6.7 g/dL (6.4-8.2)
[2022-12-05 10:09] VITALS: BP 128/91; PULSE 70; RESP 15; TEMP 37.3; O2SAT 100
== END 2022-12-05 10:13 | disposition home or self-care (01) ==
PROVIDERS: Emergency Provider Emergency Medicine; PCP Internal Medicine Interventional Cardiology
DX: L03.211 Cellulitis of face (principal); K04.7 Periapical abscess without sinus; I48.91 Unspecified atrial fibrillation; I11.0 Hypertensive heart disease with heart failure; I50.20 Unspecified systolic (congestive) heart failure; I25.10 Atherosclerotic heart disease of native coronary artery without angina pectoris; J45.909 Unspecified asthma, uncomplicated; E03.9 Hypothyroidism, unspecified; E11.42 Type 2 diabetes mellitus with diabetic polyneuropathy; Z95.4 Presence of other heart-valve replacement; Z79.84 Long term (current) use of oral hypoglycemic drugs; Z79.82 Long term (current) use of aspirin; Z86.16 Personal history of COVID-19; Z86.718 Personal history of other venous thrombosis and embolism
CPT/HCPCS: 36415; 80053; 96365; 96375; 99284; 85025; J0295; J1100; J1885

== ENCOUNTER 2022-12-17 14:23 | Outpatient (CLI) | payer MEDICARE, SELFPAY ==
--- NOTE | 2022-12-17 14:15 | RT.EKG_ITS ---
APPROVED REPORT Exam: Resting ECG Reason for Exam: afib Patient Location: O HR:70 bpm ECG Measurements Heart Rate 70 AXIS NV 202 P 0 QRSd 145 QRS 167 QT 456 T -8 QTc 493 Conclusion Ventricular-paced rhythm No further analysis attempted due to paced rhythm Baseline wander in lead(s) III,V1,V4,V6
== END 2022-12-17 14:24 | disposition home or self-care (01) ==
LOC: DI.CARD 14:26
PROVIDERS: PCP Internal Medicine Interventional Cardiology; Referring Provider Internal Medicine Interventional Cardiology; Visit Provider Physician Assistant
DX: I48.91 Unspecified atrial fibrillation (principal); R94.31 Abnormal electrocardiogram [ECG] [EKG]
CPT/HCPCS: 93010; 93284

== ENCOUNTER → 2022-12-17 14:23 | Outpatient (BNVA) | payer MEDICARE, SELFPAY | PROVIDERS: PCP Internal Medicine Interventional Cardiology; Referring Provider Internal Medicine Interventional Cardiology; Visit Provider Physician Assistant | DX: Z95.810 Presence of automatic (implantable) cardiac defibrillator (principal); I48.21 Permanent atrial fibrillation; Z98.890 Other specified postprocedural states | CPT/HCPCS: 93005; 93284; 99213 ==

== ENCOUNTER → 2023-06-24 13:17 | Outpatient (BNVA) | payer MEDICARE, SELFPAY | PROVIDERS: PCP Internal Medicine Interventional Cardiology; Referring Provider Internal Medicine Interventional Cardiology; Visit Provider Physician Assistant | DX: Z45.02 Encounter for adjustment and management of automatic implantable cardiac defibrillator (principal); I50.20 Unspecified systolic (congestive) heart failure; I48.21 Permanent atrial fibrillation; Z98.890 Other specified postprocedural states | CPT/HCPCS: 93284; 99212; 99213 ==

== ENCOUNTER 2023-12-09 08:39 | Outpatient (CLI) | payer MEDICARE, SELFPAY ==
--- NOTE | 2023-12-09 08:30 | RT.EKG_ITS ---
APPROVED REPORT Exam: Resting ECG Reason for Exam: afib, AV node ablation Patient Location: O HR:70 bpm ECG Measurements Heart Rate 70 AXIS OH 175 P 0 QRSd 141 QRS 162 QT 455 T -12 QTc 491 Conclusion Ventricular-paced rhythm No further analysis attempted due to paced rhythm
== END 2023-12-09 08:40 | disposition home or self-care (01) ==
LOC: DI.CARD 08:40
PROVIDERS: PCP Internal Medicine Interventional Cardiology; Visit Provider Internal Medicine Cardiovascular Disease
DX: I48.91 Unspecified atrial fibrillation (principal); Z98.890 Other specified postprocedural states
CPT/HCPCS: 93010

== ENCOUNTER → 2023-12-09 14:01 | Outpatient (BNVA) | payer MEDICARE, SELFPAY | PROVIDERS: PCP Internal Medicine Interventional Cardiology; Referring Provider Internal Medicine Interventional Cardiology; Visit Provider Internal Medicine Cardiovascular Disease | DX: Z95.810 Presence of automatic (implantable) cardiac defibrillator (principal); I48.21 Permanent atrial fibrillation | CPT/HCPCS: 93005; 93284 ==

== ENCOUNTER 2024-03-03 03:52 | Outpatient (RCR) | payer MEDICARE, SELFPAY ==
[2024-03-03] MEDS: IRON SUCROSE COMPLEX 300 MG in Normal Saline 250 ML 176.667 MG IVPB (11:24)
[2024-03-03] MEDS: Normal Saline Flush 10 ML SYR IVP (11:27)
== END 2024-03-04 23:59 | disposition home or self-care (01) ==
LOC: INF 03:52
PROVIDERS: PCP Internal Medicine Interventional Cardiology; Visit Provider Family Medicine
DX: D50.9 Iron deficiency anemia, unspecified (principal)
CPT/HCPCS: 96365; 96366; J1756

== ENCOUNTER 2024-03-17 00:42 | Outpatient (RCR) | payer MEDICARE, SELFPAY ==
[2024-03-10] MEDS: IRON SUCROSE COMPLEX 300 MG in Normal Saline 250 ML 176.667 MG IVPB (11:08)
[2024-03-10 11:45] VITALS: BP 113/66; PULSE 60; TEMP 36.6; O2SAT 99
[2024-03-10] MEDS: Normal Saline Flush 10 ML SYR IVP (12:50)
[2024-03-10 13:07] VITALS: BP 126/62; PULSE 60; TEMP 36.5; O2SAT 99
[2024-03-17] MEDS: Normal Saline Flush 10 ML SYR IVP (10:27)
[2024-03-17] MEDS: IRON SUCROSE COMPLEX 300 MG in Normal Saline 250 ML 176.667 MG IVPB (10:27)
[2024-03-17 10:30] VITALS: BP 93/55; PULSE 60; RESP 17; TEMP 36.1; O2SAT 97
== END 2024-04-03 23:59 | disposition home or self-care (01) ==
LOC: INF 00:42
PROVIDERS: PCP Internal Medicine Interventional Cardiology; Visit Provider Family Medicine
DX: D50.9 Iron deficiency anemia, unspecified (principal)
CPT/HCPCS: 96365; 96366; J1756

== ENCOUNTER → 2024-06-08 14:33 | Outpatient (BNVA) | payer MEDICARE, SELFPAY | PROVIDERS: PCP Internal Medicine Interventional Cardiology; Visit Provider Internal Medicine Cardiovascular Disease | DX: Z95.810 Presence of automatic (implantable) cardiac defibrillator (principal) | CPT/HCPCS: 93284 ==

== ENCOUNTER 2024-11-14 14:11 | Outpatient (CLI) | payer MEDICARE, SELFPAY ==
[2024-11-14 15:44] LABS: Anion Gap 8.6 mmol/L (3-11); BUN 58 mg/dL (7-18); CO2 29.4 mmol/L (21.0-32.0); CREATININE 2.3 mg/dL (0.55-1.02); Chloride 103 mmol/L (98-107); Estimated GFR 21.62 (mL/min/1.73m2); Ferritin 97 ng/mL (8-252); Glucose 189 mg/dL (74-106); Potassium 4.8 mmol/L (3.5-5.1); Sodium 141 mmol/L (136-145)
[2024-11-14 16:13] LABS: Iron 56 ug/dL (50-170); Total Iron Binding Capacity 308 ug/dL (250-450); Transferrin Sat 18 % (15-50)
[2024-11-15 11:02] LABS: NT-proBNP 6455 pg/mL (<300); Uric Acid 6.3 mg/dL (2.6-6.0)
== END 2024-11-14 14:12 | disposition home or self-care (01) ==
LOC: LBN 14:11 → LBO 14:52
PROVIDERS: PCP Nurse Practitioner Family; Referring Provider Nurse Practitioner Family; Visit Provider Nurse Practitioner Family
DX: I50.20 Unspecified systolic (congestive) heart failure (principal); I50.9 Heart failure, unspecified; N18.9 Chronic kidney disease, unspecified; D64.9 Anemia, unspecified; E79.0 Hyperuricemia without signs of inflammatory arthritis and tophaceous disease
CPT/HCPCS: 36415; 80048; 82728; 83540; 83550; 83880; 84550

== ENCOUNTER 2025-01-02 15:54 | Outpatient (CLI) | payer MEDICARE, SELFPAY ==
[2025-01-02 15:34] LABS: HCT 28.7 % (36.0-46.0); HGB 8.8 g/dL (11.2-15.7); MCH 29.4 pg (27.0-33.0); MCV 96 fL (80-95); Platelet Count 183 10^3/uL (130-400); RBC 2.99 10^6/uL (3.93-5.22); RDW-SD 56.2 fL
[2025-01-02 16:12] LABS: MCHC 30.7 % (32.0-36.0)
[2025-01-02 16:21] LABS: Anion Gap 10.2 mmol/L (3-11); BUN 57 mg/dL (7-18); CO2 27.8 mmol/L (21.0-32.0); CREATININE 2.2 mg/dL (0.55-1.02); Calcium 9.1 mg/dL (8.5-10.1); Chloride 103 mmol/L (98-107); Estimated GFR 22.81 (mL/min/1.73m2); Glucose 138 mg/dL (74-106); Sodium 141 mmol/L (136-145)
[2025-01-02 17:13] LABS: NT-proBNP 5473 pg/mL (<300)
== END 2025-01-02 15:55 | disposition home or self-care (01) ==
LOC: LBO 15:55
PROVIDERS: PCP Nurse Practitioner Family; Visit Provider Nurse Practitioner Family
DX: I50.9 Heart failure, unspecified (principal); D64.9 Anemia, unspecified
CPT/HCPCS: 36415; 80048; 85027; 83880

== ENCOUNTER → 2025-01-04 14:34 | Outpatient (BNVA) | payer MEDICARE, SELFPAY | PROVIDERS: PCP Nurse Practitioner Family; Visit Provider Internal Medicine Cardiovascular Disease | DX: I48.91 Unspecified atrial fibrillation (principal); Z95.810 Presence of automatic (implantable) cardiac defibrillator | CPT/HCPCS: 93284 ==

== ENCOUNTER 2025-01-11 02:03 | Outpatient (CLI) | payer MEDICARE, SELFPAY ==
[2025-01-11 10:35] LABS: HCT 29.9 % (36.0-46.0); HGB 9.1 g/dL (11.2-15.7); MCHC 30.4 % (32.0-36.0); MCV 95 fL (80-95); MPV 10.2 fL (8.0-11.0); Platelet Count 161 10^3/uL (130-400); RBC 3.14 10^6/uL (3.93-5.22); RDW 15.8 % (11.7-14.6); RDW-SD 55.4 fL; WBC 3.61 10^3/uL (4.4-10.8)
[2025-01-11 11:11] LABS: Iron 44 ug/dL (50-170); Total Iron Binding Capacity 282 ug/dL (250-450); Transferrin Sat 16 % (15-50)
== END 2025-01-11 02:04 | disposition home or self-care (01) ==
LOC: LBO 02:03
PROVIDERS: Absent Provider Nurse Practitioner Family; PCP Nurse Practitioner Family; Referring Provider Nurse Practitioner Family; Visit Provider Nurse Practitioner Family
DX: Z86.2 Personal history of diseases of the blood and blood-forming organs and certain disorders involving the immune mechanism (principal); R19.5 Other fecal abnormalities
CPT/HCPCS: 36415; 85027; 83540; 83550

== ENCOUNTER 2025-01-20 00:40 | Outpatient (RCR) | payer MEDICARE, SELFPAY ==
[2025-01-09] MEDS: IRON SUCROSE COMPLEX 300 MG in Normal Saline 250 ML 176.667 MG IVPB (12:46)
[2025-01-09] MEDS: Normal Saline Flush 5 ML SYR IVP (12:46)
[2025-01-20] MEDS: IRON SUCROSE COMPLEX 300 MG in Normal Saline 250 ML 176.667 MG IVPB (12:47)
[2025-01-20] MEDS: Normal Saline Flush 5 ML SYR IVP (13:08)
== END 2025-02-01 23:59 | disposition home or self-care (01) ==
LOC: INF 00:40
PROVIDERS: PCP Nurse Practitioner Family; Visit Provider Nurse Practitioner Family
DX: D64.9 Anemia, unspecified (principal)
CPT/HCPCS: 96365; 96366; J1756

== ENCOUNTER 2025-01-26 02:21 | Outpatient (CLI) | payer MEDICARE, SELFPAY ==
[2025-01-26 11:33] LABS: HCT 31.7 % (36.0-46.0); HGB 9.6 g/dL (11.2-15.7); MCH 28.9 pg (27.0-33.0); MCHC 30.3 % (32.0-36.0); MCV 96 fL (80-95); MPV 10.2 fL (8.0-11.0); Platelet Count 199 10^3/uL (130-400); RBC 3.32 10^6/uL (3.93-5.22); RDW 16.4 % (11.7-14.6); RDW-SD 57.4 fL; WBC 4.44 10^3/uL (4.4-10.8)
[2025-01-26 12:04] LABS: Iron 34 ug/dL (50-170); Total Iron Binding Capacity 269 ug/dL (250-450); Transferrin Sat 13 % (15-50)
[2025-01-26 12:17] LABS: Ferritin 203 ng/mL (8-252)
== END 2025-01-26 02:22 | disposition home or self-care (01) ==
LOC: LBO 02:21
PROVIDERS: PCP Nurse Practitioner Family; Visit Provider Nurse Practitioner Family
DX: D64.9 Anemia, unspecified (principal)
CPT/HCPCS: 36415; 85027; 82728; 83540; 83550

== ENCOUNTER 2025-02-01 10:09 | Outpatient (CLI) | payer MEDICARE, SELFPAY ==
--- NOTE | 2025-02-01 10:15 | DI.US_ITS ---
Exam(s) US LOWER EXTREMITY VENOUS RT EXAM: US LOWER EXTREMITY VENOUS RT CLINICAL HISTORY: Rt leg swelling, M79.89, rule out dvt (recently stopped anticoag). TECHNIQUE: Lower extremity venous ultrasound performed using grayscale, color-flow, and spectral Do ppler analysis. COMPARISON: CR,XR XR PORTABLE CHEST AP from 08/22/2021 FINDINGS: The common femoral, femoral and popliteal veins demonstrate normal compressibility, augmentation, and color Doppler. The posterior tibial and peroneal veins were not well visualized due to body habitus and edema. No saphenous vein thrombosis or other superficial venous thrombosis is seen. No hematoma or Villanueva's cyst is seen. Subcutaneous edema IMPRESSION: Edema in the subcutaneous fat. No evidence of DVT. DATA REPOSITORY:
== END 2025-02-01 10:29 ==
PROVIDERS: PCP Nurse Practitioner Family; Visit Provider Nurse Practitioner Family
DX: M79.89 Other specified soft tissue disorders (principal)
CPT/HCPCS: 93971

== ENCOUNTER → 2025-02-02 13:12 | Outpatient (BNVA) | payer MEDICARE, SELFPAY | PROVIDERS: PCP Nurse Practitioner Family; Referring Provider Nurse Practitioner Family; Visit Provider Podiatrist | DX: I73.89 Other specified peripheral vascular diseases (principal); L60.3 Nail dystrophy; B35.1 Tinea unguium; E11.42 Type 2 diabetes mellitus with diabetic polyneuropathy; M79.674 Pain in right toe(s); M79.675 Pain in left toe(s); R09.89 Other specified symptoms and signs involving the circulatory and respiratory systems; R60.0 Localized edema; L65.9 Nonscarring hair loss, unspecified; R23.4 Changes in skin texture; L60.2 Onychogryphosis; L60.8 Other nail disorders | CPT/HCPCS: 11721; 99214 ==

== ENCOUNTER 2025-02-10 00:15 | Outpatient (CLI) | payer MEDICARE, SELFPAY ==
--- NOTE | 2025-02-10 | DI.US_ITS ---
Exam(s) US RENAL EXAM: US RENAL CLINICAL HISTORY: CKD STAGE 4, GFR 15-29 ML/MIN N18.4 TECHNIQUE: Ultrasound of both kidneys performed using standard protocol. COMPARISON: US US LOWER EXTREMITY VENOUS RT from 02/01/2025 FINDINGS: RIGHT KIDNEY: Measures 9 cm in length. No cysts evident. Normal cortical thickness and corticomedullary differentia tion .No solid masses No intrarenal calculi nor hydronephrosis. LEFT KIDNEY: Measures 10 cm in length. No cysts evident. Normal cortical thickness and corticomedullary different iaion. No solids masses. No intrarenal calculi nor hydonephrosis. URINARY BLADDER: Prevoid volume is 33 cc Postvoid volume is 6 cc No evidence of bladder mass nor diverticuli. Ureterovesical jets: Both not identified IMPRESSION: 1. No significant ultrasound findings in the kidneys. 2. Urinary bladder is difficult to evaluate accurately as it only contained 33 cc of fluid. DATA REPOSITORY:
== END 2025-02-10 00:35 ==
PROVIDERS: PCP Nurse Practitioner Family; Visit Provider Nurse Practitioner Family
DX: N18.4 Chronic kidney disease, stage 4 (severe) (principal)
CPT/HCPCS: 76770

== ENCOUNTER 2025-02-14 03:56 | Outpatient (CLI) | payer MEDICARE, SELFPAY ==
[2025-02-14 16:11] LABS: Anion Gap 8.2 mmol/L (3-11); BUN 60 mg/dL (7-18); CO2 27.8 mmol/L (21.0-32.0); Chloride 103 mmol/L (98-107); Estimated GFR 25.57 (mL/min/1.73m2); Glucose 146 mg/dL (74-106); Magnesium 2.7 mg/dL (1.8-2.4); Sodium 139 mmol/L (136-145)
== END 2025-02-14 03:57 | disposition home or self-care (01) ==
LOC: LBO 03:56
PROVIDERS: PCP Nurse Practitioner Family; Visit Provider Nurse Practitioner Family
DX: E83.41 Hypermagnesemia (principal); E87.6 Hypokalemia
CPT/HCPCS: 36415; 80048; 83735

== ENCOUNTER 2025-02-23 02:46 | Outpatient (RCR) | payer MEDICARE, SELFPAY ==
[2025-02-09] MEDS: IRON SUCROSE COMPLEX 300 MG in Normal Saline 250 ML 176.667 MG IVPB (11:22)
[2025-02-09] MEDS: Normal Saline Flush 5 ML SYR IVP (11:23)
[2025-02-16] MEDS: IRON SUCROSE COMPLEX 300 MG in Normal Saline 250 ML 176.667 MG IVPB (12:17)
[2025-02-16] MEDS: Normal Saline Flush 10 ML SYR IVP (12:17)
[2025-02-23] MEDS: Normal Saline Flush 10 ML SYR IVP (12:18)
[2025-02-23] MEDS: IRON SUCROSE COMPLEX 300 MG in Normal Saline 250 ML 176.667 MG IVPB (12:18)
== END 2025-03-04 23:59 | disposition home or self-care (01) ==
LOC: INF 02:46
PROVIDERS: PCP Nurse Practitioner Family; Visit Provider Nurse Practitioner Family
DX: D64.9 Anemia, unspecified (principal)
CPT/HCPCS: 96365; 96366; J1756

== ENCOUNTER 2025-03-28 09:45 | Outpatient (CLI) | payer MEDICARE, SELFPAY ==
[2025-03-28 16:01] LABS: Anion Gap 8.4 mmol/L (3-11); BUN 53 mg/dL (7-18); CO2 28.6 mmol/L (21.0-32.0); CREATININE 1.8 mg/dL (0.55-1.02); Calcium 8.9 mg/dL (8.5-10.1); Chloride 101 mmol/L (98-107); Estimated GFR 29.02 (mL/min/1.73m2); Glucose 169 mg/dL (74-106); Magnesium 2.5 mg/dL (1.8-2.4); Potassium 3.4 mmol/L (3.5-5.1); Sodium 138 mmol/L (136-145)
== END 2025-03-28 09:46 | disposition home or self-care (01) ==
LOC: LBO 09:45
PROVIDERS: PCP Nurse Practitioner Family; Visit Provider Nurse Practitioner Family
DX: E83.41 Hypermagnesemia (principal); N18.4 Chronic kidney disease, stage 4 (severe); E87.6 Hypokalemia
CPT/HCPCS: 36415; 80048; 83735

== ENCOUNTER 2025-07-25 19:30 | Outpatient (REF) | payer MEDICARE, SELFPAY ==
[2025-07-25 15:42] LABS: HCT 38.9 % (36.0-46.0); HGB 12.8 g/dL (11.2-15.7); MCH 31.2 pg (27.0-33.0); MCHC 32.9 % (32.0-36.0); MCV 95 fL (80-95); MPV 10.0 fL (8.0-11.0); Platelet Count 199 10^3/uL (130-400); RBC 4.10 10^6/uL (3.93-5.22); RDW 14.7 % (11.7-14.6); RDW-SD 50.8 fL; WBC 5.09 10^3/uL (4.4-10.8)
[2025-07-25 15:57] LABS: Iron 54 ug/dL (50-170); Total Iron Binding Capacity 264 ug/dL (250-450); Transferrin Sat 20 % (15-50)
[2025-07-25 16:51] LABS: Anion Gap 11.9 mmol/L (3-11); BUN 48 mg/dL (7-18); CO2 28.1 mmol/L (21.0-32.0); Calcium 9.3 mg/dL (8.5-10.1); Chloride 101 mmol/L (98-107); Estimated GFR 27.20 (mL/min/1.73m2); Ferritin 298 ng/mL (8-252); Glucose 110 mg/dL (74-106); Magnesium 2.3 mg/dL (1.8-2.4); Potassium 4.0 mmol/L (3.5-5.1); Sodium 141 mmol/L (136-145); Vitamin B12 399 pg/mL (193-986); Vitamin D 25 Total 27 ng/mL (30-100)
[2025-07-25 16:58] LABS: Hemoglobin A1C 6.4 % (<5.7)
[2025-07-26 16:52] LABS: LDL CHOLESTEROL 86 mg/dL (<100)
[2025-07-26 17:05] LABS: Lab Add On Test DONE
== END 2025-07-25 19:31 | disposition home or self-care (01) ==
LOC: LBN 19:30
PROVIDERS: PCP Nurse Practitioner Family; Visit Provider Nurse Practitioner Family
DX: E53.8 Deficiency of other specified B group vitamins (principal); N25.81 Secondary hyperparathyroidism of renal origin; N18.32 Chronic kidney disease, stage 3b; D50.9 Iron deficiency anemia, unspecified; R89.9 Unspecified abnormal finding in specimens from other organs, systems and tissues; N18.9 Chronic kidney disease, unspecified; E55.9 Vitamin D deficiency, unspecified; E11.42 Type 2 diabetes mellitus with diabetic polyneuropathy
CPT/HCPCS: 80048; 82306; 83721; 85027; 82330; 82607; 82728; 83036; 83540; 83550; 83735

== ENCOUNTER → 2025-08-14 02:32 | Outpatient (CLI) | payer MEDICARE, SELFPAY ==
--- NOTE | 2025-08-14 07:30 | DI.MAMMO_ITS ---
Exam(s) MAMMO SCREENING EXAM: MAMMO SCREENING CLINICAL HISTORY: screening,z12.31. TECHNIQUE: Bilateral full field digital CC and MLO mammographic images were obtained with 3D tomosynthesis and utilizing computer aided detection (CAD). COMPARISON: Prior outside mammograms dating back to 2016 were reviewed. FINDINGS: Left-sided cardiac pacemaker again noted. No new left breast findings. In the right breast there is a medially located well-defined noncalcified nodule measuring 6 x 4 mm, located 7 cm medial to the nipple, similar in appearance to recent mammograms and previously marked as a skin mole. There are no new spiculated masses nor new malignant-appearing microcalcification groups in either breast. There is no significant architectural distortion nor skin thickening-retraction. IMPRESSION: Stable benign-appearing findings. No radiographic evidence of malignancy. BI-RADS Category 2 - Benign Findings Breast Density - Category B - There are scattered areas of fibroglandular density. Breast density Category C or D implies that the patient has dense breast tissue. Dense breast tissue can make it harder to find cancer on a mammogram. Dense breast tissue is also associated with an increased risk of breast cancer. This information about the result of the mammogram report was provided to the patient to raise their awareness. Use this report when you speak with the patient about their risks for breast cancer, which includes their family history. At that time, you may recommend additional screening tests (Ultrasound or MRI) as these tests may add significant information. A negative radiographic report should not delay biopsy if a dominant or clinically suspicious mass is present. Up to ten percent of cancers are not identified on mammography. A negative report may reinforce clinical impression. Adenosis and dense breasts may obscure an underlying neoplasm. False positive reports average 6 to 10%. Patient will receive a letter notifying them of these results.
== END ==
PROVIDERS: PCP Nurse Practitioner Family; Visit Provider Nurse Practitioner Family
DX: Z12.31 Encounter for screening mammogram for malignant neoplasm of breast (principal); N63.10 Unspecified lump in the right breast, unspecified quadrant
CPT/HCPCS: 77063; 77067